=== PATIENT | female | born 1960 | race American Indian/Alaskan Native ===

== ENCOUNTER 2020-03-14 16:49 | Inpatient (IN) | payer MEDICAID ==
[~2020-03-14] VITALS: Ht 160 cm; Wt 56.8 kg
[~2020-03-14 16:49] MED LIST: ASPI-1265 PO; ATEN25TA PO; ATOR20TA PO; CHOL100046 PO; DOCU100C40 PO; HYDR2TAB7 PO; LORA-269 PO; OMEP20CA15 PO
[2020-03-14 17:15] LABS: BASOPHILS # (AUTO) 0.1 X10'3 (0-0.2); BASOPHILS % (AUTO) 0.8 % (0-1); EOSINOPHILS # (AUTO) 0.3 X10'3 (0-0.9); EOSINOPHILS % (AUTO) 4.4 % (0-6); HEMATOCRIT 40.7 % (35.0-45.0); HEMOGLOBIN 13.6 g/dl (12.0-16.0); LYMPHOCYTES # (AUTO) 1.3 X10'3 (1.1-4.8); LYMPHOCYTES % (AUTO) 17.9 % (21-51); MEAN CORPUSCULAR HEMOGLOBIN 29.5 PG (27.0-31.0); MEAN CORPUSCULAR HGB CONC 33.5 g/dL (33.0-36.5); MEAN PLATELET VOLUME 8.4 FL (7.4-10.4); MONOCYTES # (AUTO) 0.6 X10'3 (0-0.9); MONOCYTES % (AUTO) 7.7 % (2-12); NEUTROPHILS % (AUTO) 69.2 % (42-75); PLATELET COUNT 152 X10'3 (140-440); RED BLOOD COUNT 4.63 X10'6 (4.20-5.60); RED CELL DISTRIBUTION WIDTH 13.9 % (11.5-14.5); WHITE BLOOD COUNT 7.2 X10'3 (4.5-11.0)
[2020-03-14 17:27] LABS: ALANINE AMINOTRANSFERASE 30 U/L (12-78); ALBUMIN 3.8 G/DL (3.4-5.0); ALBUMIN/GLOBULIN RATIO 0.9 (1.1-1.5); ALKALINE PHOSPHATASE 70 IU/L (46-116); ANION GAP 12 (8-16); ASPARTATE AMINO TRANSFERASE 29 U/L (10-37); BILIRUBIN,TOTAL 0.5 MG/DL (0.1-1.0); BLOOD UREA NITROGEN 21 MG/DL (7-18); BUN/CREATININE RATIO 27.6 (6.6-38.0); CALCIUM 8.8 MG/DL (8.5-10.1); CHLORIDE 104 MMOL/L (99-107); CREATININE 0.76 MG/DL (0.40-0.90); GLUCOSE 95 MG/DL (70-104); POTASSIUM 3.7 MMOL/L (3.5-5.1); SODIUM 139 MMOL/L (135-145); TOTAL CARBON DIOXIDE 23.5 MMOL/L (24-32); TOTAL PROTEIN 8.1 G/DL (6.4-8.2); eGFR 78 ML/MIN
[2020-03-14] MEDS ORDERED: ketorolac trometh. 30mg/ml inj. IV ONE (18:15)
[2020-03-14] MEDS ORDERED: mag hydrox/Alum hydrox/simeth 30ml oral suspension PO PRN (19:55)
[2020-03-14] MEDS ORDERED: ondansetron/PF 4mg/2ml inj IV PRN (19:55)
[2020-03-14] MEDS ORDERED: HYDROmorphone inj. 0.5 MG/0.5 ML DISP.SYRIN IV PRN (19:55)
[2020-03-14] MEDS ORDERED: magnesium hydroxide 30ml (MOM) UD suspension PO PRN (19:55)
[2020-03-14] MEDS ORDERED: acetaminophen 325mg tablet PO PRN (19:55)
[2020-03-14 20:30] VITALS: BP 149/80
--- NOTE | 2020-03-14 20:30 | NUR ---
PATIENT UP TO FLOOR VIA GURNEY. AMBULATED WITHOUT DIFFICULTY TO BEDSIDE. REPORTS SLIGHT SHORTNESS OF BREATH. PLACED ON MEDICAL FEE CLERK 55. 20G IV IN RIGHT AND LEFT FA AND SALINE LOCKED AT THIS TIME. BELONGINGS PLACED AT THE BEDSIDE. VS STABLE AND WNL. WILL CONTINUE TO MONITOR CLOSELY.
--- NOTE | 2020-03-14 20:31 | NUR ---
Patient in room ED 3. I have received report from ROBERTO DAS, IN ER and had the opportunity to ask questions. AWAITING ARRIVAL TO 3013A.
[2020-03-14 22:58] VITALS: BP 156/73
[2020-03-14] MEDS ORDERED: nitroGLYCERIN 0.4mg SUBLingual tab SL PRN (23:10)
--- NOTE | 2020-03-14 23:52 | NUR ---
PAGER ID: [phone] MESSAGE: ROBERTO Segura Ext. [phone] for pt in 3013A. Admit Dx AC DECOMP HF. 6HR Critical troponin 0.14. Just wanted to let you know. Thank you.
[2020-03-15] VITALS (10 sets, daily range): BP systolic 112–138; BP diastolic 60–94
[2020-03-15 05:14] LABS: BASOPHILS % (AUTO) 0.7 % (0-1); EOSINOPHILS # (AUTO) 0.4 X10'3 (0-0.9); EOSINOPHILS % (AUTO) 5.6 % (0-6); HEMOGLOBIN 13.5 g/dl (12.0-16.0); LYMPHOCYTES # (AUTO) 1.6 X10'3 (1.1-4.8); LYMPHOCYTES % (AUTO) 24.8 % (21-51); MEAN CORPUSCULAR HEMOGLOBIN 29.5 PG (27.0-31.0); MEAN CORPUSCULAR HGB CONC 33.6 g/dL (33.0-36.5); MEAN CORPUSCULAR VOLUME 87.8 FL (78-98); MEAN PLATELET VOLUME 8.6 FL (7.4-10.4); MONOCYTES # (AUTO) 0.6 X10'3 (0-0.9); MONOCYTES % (AUTO) 9.5 % (2-12); NEUTROPHILS # (AUTO) 3.9 X10'3 (1.8-7.7); NEUTROPHILS % (AUTO) 59.4 % (42-75); PLATELET COUNT 157 X10'3 (140-440); RED BLOOD COUNT 4.56 X10'6 (4.20-5.60); RED CELL DISTRIBUTION WIDTH 13.9 % (11.5-14.5); WHITE BLOOD COUNT 6.6 X10'3 (4.5-11.0)
[2020-03-15 05:25] LABS: ALBUMIN 3.3 G/DL (3.4-5.0); ANION GAP 10 (8-16); BLOOD UREA NITROGEN 30 MG/DL (7-18); BUN/CREATININE RATIO 33.3 (6.6-38.0); CALCIUM 9.3 MG/DL (8.5-10.1); CHLORIDE 107 MMOL/L (99-107); GLUCOSE 91 MG/DL (70-104); POTASSIUM 3.8 MMOL/L (3.5-5.1); SODIUM 142 MMOL/L (135-145); TOTAL CARBON DIOXIDE 25.3 MMOL/L (24-32); eGFR 64 ML/MIN
--- NOTE | 2020-03-15 06:20 | NUR ---
Problems reprioritized. Patient report given, questions answered & plan of care reviewed with ROBERTO BOSE.
--- NOTE | 2020-03-15 06:27 | NUR ---
Patient in room PCU 3013. I have received report from ROBERTO Segura and had the opportunity to ask questions and assume patient care.
--- NOTE | 2020-03-15 06:40 | NUR ---
Patient in room U 3013. I have received report from Colton MEJIA and had the opportunity to ask questions and assume patient care. Pt sleeping in room, no signs of distress.
[2020-03-15] MEDS ORDERED: enoxaparin 40mg/0.4ml syringe SUBCUT SCH (08:00)
[2020-03-15] MEDS ORDERED: furosemide 20 MG/2 ML vial IV SCH (08:00)
[2020-03-15] MEDS ORDERED: aspirin 81mg tab.chew PO SCH (08:00)
[2020-03-15] MEDS ORDERED: atenolol 25mg tablet PO SCH ×2 (08:00→13:36)
[2020-03-15] MEDS ORDERED: vitamin D (cholecalciferol) 1,000 unit tablet PO SCH (08:00)
[2020-03-15] MEDS ORDERED: NITR0.4T51 SL (10:29)
[2020-03-15] MEDS ORDERED: aminophylline 250mg/10ml inj. IV PRN (13:30)
[2020-03-15] MEDS ORDERED: regadenoson 0.4mg/5ml syringe IV ONE (13:30)
[2020-03-15] MEDS ORDERED: nitroGLYCERIN 0.4mg SUBLingual tab SL PRN (13:30)
[2020-03-15] MEDS ORDERED: metoprolol tartrate 1mg/ml inj IV PRN (13:30)
[2020-03-15] MEDS ORDERED: losartan 50mg tablet PO SCH (13:35)
--- NOTE | 2020-03-15 13:54 | NUR ---
Spoke to Nuc Med, they were wondering if still wanted to go forward with Savanna due to Trops being elevated. Spoke with Dr Burch, he said go ahead with Savanna, he's aware of Trops. Also to JU Lugo that was placed by [facility], will monitor for urine output, and encourage to void q30 mins.
--- NOTE | 2020-03-15 14:07 | NUR ---
Discontinued Lugo catheter that was placed by [facility], per Dr. Burch's verbal orders. Will continue to monitor for urine output and educate patient regarding void frequency.
--- NOTE | 2020-03-15 17:10 | NUR ---
Paged Dr Burch PAGER ID: [phone] MESSAGE: Paula Mercedes [id number] KOURTNEY Corrales has resulted. Are you planning to discharge? Thanks Ariana Julian [phone]
--- NOTE | 2020-03-15 17:15 | NUR ---
Spoke with Dr Burch, informed me to let the patient eat dinner, then keep her NPO after midnight. He is going to talk with Dr Malik for a consult due to results of Savanna scan.
--- NOTE | 2020-03-15 18:23 | NUR ---
Orientee documentation: I have reviewed and agree with all interventions, assessments performed and documented by ROBERTO Harding.
--- NOTE | 2020-03-15 18:24 | NUR ---
Orientee Medication Administration: For this medication-pass time frame, all medication were reviewed, dispensed, administered and documented per hospital policy by ROBERTO Harding.
--- NOTE | 2020-03-15 18:25 | NUR ---
Problems reprioritized. Patient report given, questions answered & plan of care reviewed with Michelle.
--- NOTE | 2020-03-15 18:26 | NUR ---
Problems reprioritized. Patient report given, questions answered & plan of care reviewed with ROBERTO Martinez. All patient needs met at this time.
--- NOTE | 2020-03-15 18:28 | NUR ---
Patient in room PCU 3013. I have received report from Meaghan MEJIA and Ariana MEJIA and had the opportunity to ask questions and assume patient care.
--- NOTE | 2020-03-15 19:23 | NUR ---
PAGER ID: [phone] MESSAGE: Patient Paula Rodriguez Rm [id number] Patient is leaving AMA despite education. Michelle MEJIA ext. [phone]
--- NOTE | 2020-03-15 19:38 | NUR ---
Patient left AMA at this time. She was educated regarding her risk of leaving against medication advice but she stated that she is not going to wait around to see a physician and if she isn't getting discharged right now then she is leaving because she has friends waiting down in the parking lot ready to pick her up. She was educated by both primary RN and zinc furnace charger. AMA paper was signed, PIVs taken out, and patient taken off of tele. Dr. Avendano paged to inform him of patient leaving.
--- NOTE | 2020-03-15 19:40 | NUR ---
PAGER ID: [phone] MESSAGE: Patient Paula Rodriguez Rm [id number] Patient is leaving AMA despite education. Michelle MEJIA ext. [phone]
[2020-03-15] MEDS ORDERED: atorvastatin 20mg tablet PO SCH (21:00)
== END 2020-03-15 19:53 | disposition left against medical advice (07) | DRG 194 ==
LOC: ER 16:49 → ED HOLD 19:51 → PCU 3S 20:35
PROVIDERS: ADMIT Internal Medicine; ATTEND Family Medicine
PROC: 4A02XM4 Measurement of Cardiac Total Activity, External Approach (ICD-10-PCS; principal; 2020-03-15)
PROC: 3E033HZ Introduction of Radioactive Substance into Peripheral Vein, Percutaneous Approach (ICD-10-PCS; 2020-03-15)
DX: I11.0 Hypertensive heart disease with heart failure (principal); I65.29 Occlusion and stenosis of unspecified carotid artery; Z86.74 Personal history of sudden cardiac arrest; Z95.1 Presence of aortocoronary bypass graft; I25.110 Atherosclerotic heart disease of native coronary artery with unstable angina pectoris; I50.9 Heart failure, unspecified; E78.5 Hyperlipidemia, unspecified; E04.1 Nontoxic single thyroid nodule; Z53.29 Procedure and treatment not carried out because of patient's decision for other reasons; I25.2 Old myocardial infarction; Z79.82 Long term (current) use of aspirin; Z87.891 Personal history of nicotine dependence; Z95.5 Presence of coronary angioplasty implant and graft; Z88.8 Allergy status to other drugs, medicaments and biological substances
CPT/HCPCS: 36415; 71045; 78452; 80048; 80053; 83880; 84484; 85025; 87081; 93005; 93017; 93306; 96374; 99285; A9500; G0378; J1650; J1885; J1940; J2785

== ENCOUNTER 2020-09-30 05:56 | Inpatient (IN) | payer MEDICAID ==
[~2020-09-30] VITALS: Ht 157.5 cm; Wt 59.0 kg
[~2020-09-30 05:56] MED LIST changes: -DOCU100C40 PO; -HYDR2TAB7 PO; -LORA-269 PO; +NITR0.4T51 SL; -OMEP20CA15 PO
[2020-09-30] MEDS ORDERED: heparin 10,000 units/1 ML INJ IV PRN ×2 (06:10→08:50)
[2020-09-30] MEDS ORDERED: heparin 10,000 units/1 ML INJ IV ONE ×2 (06:10→06:20)
[2020-09-30 06:38] LABS: BASOPHILS # (AUTO) 0.1 X10'3 (0-0.2); BASOPHILS % (AUTO) 1.2 % (0-1); EOSINOPHILS # (AUTO) 0.1 X10'3 (0-0.9); EOSINOPHILS % (AUTO) 1.2 % (0-6); HEMATOCRIT 36.1 % (35.0-45.0); HEMOGLOBIN 11.8 g/dl (12.0-16.0); LYMPHOCYTES # (AUTO) 1.2 X10'3 (1.1-4.8); LYMPHOCYTES % (AUTO) 15.8 % (21-51); MEAN CORPUSCULAR HEMOGLOBIN 29.3 PG (27.0-31.0); MEAN CORPUSCULAR HGB CONC 32.6 g/dL (33.0-36.5); MEAN CORPUSCULAR VOLUME 89.8 FL (78-98); MEAN PLATELET VOLUME 8.6 FL (7.4-10.4); MONOCYTES # (AUTO) 0.5 X10'3 (0-0.9); MONOCYTES % (AUTO) 6.8 % (2-12); NEUTROPHILS # (AUTO) 5.7 X10'3 (1.8-7.7); PLATELET COUNT 179 X10'3 (140-440); RED BLOOD COUNT 4.02 X10'6 (4.20-5.60); RED CELL DISTRIBUTION WIDTH 14.5 % (11.5-14.5); WHITE BLOOD COUNT 7.7 X10'3 (4.5-11.0)
[2020-09-30] MEDS: heparin 25,000 UNIT/250ml bag 250 ML IV SCH ×2 (06:45→17:31)
[2020-09-30 06:49] LABS: PARTIAL THROMBOPLASTIN TIME 27 SECONDS (22-32)
[2020-09-30 06:53] LABS: ALANINE AMINOTRANSFERASE 27 U/L (12-78); ALBUMIN 3.4 G/DL (3.4-5.0); ALBUMIN/GLOBULIN RATIO 0.8 (1.1-1.5); ALKALINE PHOSPHATASE 59 IU/L (46-116); ANION GAP 10 (8-16); ASPARTATE AMINO TRANSFERASE 28 U/L (10-37); BILIRUBIN,TOTAL 0.4 MG/DL (0.1-1.0); BLOOD UREA NITROGEN 17 MG/DL (7-18); BUN/CREATININE RATIO 12.3 (6.6-38.0); CALCIUM 8.6 MG/DL (8.5-10.1); CHLORIDE 107 MMOL/L (99-107); CREATININE 1.38 MG/DL (0.40-0.90); GLUCOSE 116 MG/DL (70-104); POTASSIUM 3.9 MMOL/L (3.5-5.1); SODIUM 141 MMOL/L (135-145); TOTAL CARBON DIOXIDE 24.2 MMOL/L (24-32); TOTAL PROTEIN 7.7 G/DL (6.4-8.2); eGFR 39 ML/MIN
--- NOTE | 2020-09-30 07:01 | NUR ---
pt sleeping in no distress. able to arouse.
[2020-09-30 07:02] LABS: MAGNESIUM 1.9 MG/DL (1.5-2.4)
[2020-09-30] MEDS ORDERED: CHOL500050 PO (08:11)
[2020-09-30] MEDS ORDERED: ASPI-1264 PO (08:11)
[2020-09-30] MEDS ORDERED: OMEP-50 PO (08:11)
[2020-09-30] MEDS ORDERED: LISI-600 PO (08:11)
[2020-09-30] MEDS ORDERED: CARV3.1289 PO (08:11)
[2020-09-30] MEDS ORDERED: potassium Cl 20 mEq SR tablet PO PRN ×2 (08:50)
[2020-09-30] MEDS ORDERED: bisacodyl 10mg suppository rectal RC PRN (08:50)
[2020-09-30] MEDS ORDERED: morphine 2 MG/ML inj. syringe IV PRN ×2 (08:50)
[2020-09-30] MEDS ORDERED: mag hydrox/Alum hydrox/simeth 30ml oral suspension PO PRN (08:50)
[2020-09-30] MEDS ORDERED: ondansetron/PF 4mg/2ml inj IV PRN (08:50)
[2020-09-30] MEDS ORDERED: magnesium 4gm in 100ml NS 100 ML IV PRN (08:50)
[2020-09-30] MEDS ORDERED: magnesium Cl slow-release 64mg tablet PO PRN (08:50)
[2020-09-30] MEDS ORDERED: magnesium 2GM in 50ml NS 50 ML IV PRN (08:50)
[2020-09-30] MEDS ORDERED: magnesium hydroxide 30ml (MOM) UD suspension PO PRN (08:50)
[2020-09-30] MEDS ORDERED: potassium CL 10mEq/100ml bag 100 ML IV PRN ×2 (08:50)
[2020-09-30] MEDS ORDERED: nitroGLYCERIN 0.4mg SUBLingual tab SL PRN (08:50)
[2020-09-30] MEDS ORDERED: heparin 25,000 UNIT/250ml bag 250 ML IV SCH ×2 (08:50→17:35)
[2020-09-30] MEDS ORDERED: acetaminophen 325mg tablet PO PRN (08:50)
[2020-09-30] MEDS: lisinopril 10 MG tablet PO SCH (09:05)
[2020-09-30 09:25] LABS: BASOPHILS % (AUTO) 0.6 % (0-1); EOSINOPHILS # (AUTO) 0.1 X10'3 (0-0.9); EOSINOPHILS % (AUTO) 1.3 % (0-6); HEMOGLOBIN 11.1 g/dl (12.0-16.0); LYMPHOCYTES # (AUTO) 1.4 X10'3 (1.1-4.8); LYMPHOCYTES % (AUTO) 19.3 % (21-51); MEAN CORPUSCULAR HEMOGLOBIN 29.3 PG (27.0-31.0); MEAN CORPUSCULAR HGB CONC 32.8 g/dL (33.0-36.5); MEAN CORPUSCULAR VOLUME 89.4 FL (78-98); MEAN PLATELET VOLUME 8.5 FL (7.4-10.4); MONOCYTES # (AUTO) 0.6 X10'3 (0-0.9); MONOCYTES % (AUTO) 8.8 % (2-12); PLATELET COUNT 168 X10'3 (140-440); RED CELL DISTRIBUTION WIDTH 14.1 % (11.5-14.5); WHITE BLOOD COUNT 7.1 X10'3 (4.5-11.0)
--- NOTE | 2020-09-30 09:55 | NUR ---
pt awake and given a cup of water. pt states she feels a little anxious but rearranged her in the bed to help.
[2020-09-30 12:15] VITALS: BP 113/83
[2020-09-30] MEDS: cetirizine 10mg tablet PO SCH (13:13)
[2020-09-30 15:00] VITALS: BP 98/60
--- NOTE | 2020-09-30 15:04 | NUR ---
PAGER ID: [phone] MESSAGE: RM 311 Paula Rodriguez is having an anxiety attack. Can we get some PRN Ativan on board. She says she takes it at home. ROBERTO Holder Ext [phone]
[2020-09-30] MEDS ORDERED: LORazepam 1 MG tablet PO PRN ×2 (15:10→18:15)
[2020-09-30 18:00] VITALS: BP 104/72
--- NOTE | 2020-09-30 18:10 | NUR ---
Problems reprioritized. Patient report given, questions answered & plan of care reviewed with ROBERTO Mckay.
[2020-09-30] MEDS ORDERED: carVEDilol 3.125mg tablet PO SCH (20:00)
[2020-09-30] MEDS ORDERED: atenolol 25mg tablet PO SCH (20:00)
[2020-09-30] MEDS ORDERED: furosemide 40mg/4ml inj IV SCH (20:00)
[2020-09-30] MEDS: K and/or MAG REPLACEMENT MC SCH (20:00)
[2020-09-30] MEDS: furosemide 20 MG/2 ML vial IV SCH (20:06)
[2020-09-30] MEDS ORDERED: atorvastatin 20mg tablet PO SCH (21:00)
[2020-09-30 22:00] VITALS: BP 104/74
[2020-10-01 02:00] VITALS: BP 94/57
[2020-10-01 06:00] VITALS: BP 106/72
--- NOTE | 2020-10-01 06:05 | NUR ---
Problems reprioritized. Patient report given, questions answered & plan of care reviewed with Pam MEJIA
--- NOTE | 2020-10-01 06:15 | NUR ---
Patient in room MED 311. I have received report from sharri mckeon and had the opportunity to ask questions and assume patient care.
[2020-10-01 06:24] LABS: BASOPHILS # (AUTO) 0.1 X10'3 (0-0.2); BASOPHILS % (AUTO) 1.1 % (0-1); EOSINOPHILS # (AUTO) 0.3 X10'3 (0-0.9); EOSINOPHILS % (AUTO) 4.2 % (0-6); LYMPHOCYTES # (AUTO) 2.6 X10'3 (1.1-4.8); LYMPHOCYTES % (AUTO) 33.5 % (21-51); MEAN CORPUSCULAR HEMOGLOBIN 29.3 PG (27.0-31.0); MEAN CORPUSCULAR HGB CONC 33.3 g/dL (33.0-36.5); MEAN CORPUSCULAR VOLUME 87.9 FL (78-98); MEAN PLATELET VOLUME 9.1 FL (7.4-10.4); MONOCYTES # (AUTO) 0.7 X10'3 (0-0.9); MONOCYTES % (AUTO) 9.3 % (2-12); NEUTROPHILS % (AUTO) 51.9 % (42-75); PLATELET COUNT 173 X10'3 (140-440); RED BLOOD COUNT 3.75 X10'6 (4.20-5.60); RED CELL DISTRIBUTION WIDTH 14.5 % (11.5-14.5); WHITE BLOOD COUNT 7.7 X10'3 (4.5-11.0)
--- NOTE | 2020-10-01 06:34 | NUR ---
Problems reprioritized. Patient report given, questions answered & plan of care reviewed with Pam MEJIA.
[2020-10-01 06:53] LABS: ANION GAP 13 (8-16); BLOOD UREA NITROGEN 32 MG/DL (7-18); BUN/CREATININE RATIO 22.2 (6.6-38.0); CHLORIDE 107 MMOL/L (99-107); CHOL/HDL RATIO 2.5 (0.00-4.99); CHOLESTEROL 147 MG/DL (0-200); CREATININE 1.44 MG/DL (0.40-0.90); GLUCOSE 110 MG/DL (70-104); HDL CHOLESTEROL 59 MG/DL (35-60); LDL CHOLESTEROL 78 MG/DL (50-100); MAGNESIUM 1.9 MG/DL (1.5-2.4); POTASSIUM 3.6 MMOL/L (3.5-5.1); SODIUM 139 MMOL/L (135-145); TOTAL CARBON DIOXIDE 19.4 MMOL/L (24-32); TRIGLYCERIDES 63 MG/DL (20-135); eGFR 37 ML/MIN
[2020-10-01] MEDS ORDERED: pantoprazole 40mg Tablet.DR PO SCH (07:30)
[2020-10-01] MEDS: K and/or MAG REPLACEMENT MC SCH (08:00)
[2020-10-01] MEDS ORDERED: metoprolol succinate 25mg (24-HOUR) SR. Tablet PO SCH (08:00)
[2020-10-01] MEDS: cetirizine 10mg tablet PO SCH (08:00)
[2020-10-01] MEDS: lisinopril 10 MG tablet PO SCH (08:02)
[2020-10-01] MEDS: furosemide 20 MG/2 ML vial IV SCH (08:02)
[2020-10-01] MEDS ORDERED: aspirin 81mg tablet.DR PO SCH (08:30)
[2020-10-01 10:00] VITALS: BP 101/59
[2020-10-01] MEDS ORDERED: ATI1T PO (12:30)
[2020-10-01] MEDS ORDERED: ASPI-1071 PO (12:30)
[2020-10-01] MEDS ORDERED: CETI10TA14 PO (12:30)
[2020-10-01] MEDS ORDERED: METO-395 PO (12:30)
[2020-10-01] MEDS ORDERED: MELA3TAB39 PO (12:30)
--- NOTE | 2020-10-01 12:30 | NUR ---
Spoke with pts' daughter as Dr. Mason was discussing discharge orders with patient,daughter stated she was leaving from [place] and would be here in 1 1/2 hours.
[2020-10-01] MEDS ORDERED: LORA-269 PO (12:31)
[2020-10-01 14:00] VITALS: BP 88/42
--- NOTE | 2020-10-01 14:00 | NUR ---
pts' daughter called ,stated she was just leaving from [place] , would be here approx 3:30 pm
--- NOTE | 2020-10-01 15:36 | NUR ---
pts daughter called stated she is approx 45 mins away
--- NOTE | 2020-10-01 17:00 | NUR ---
reviewed all discharge instructions,including need for f/u appt with PCP and Dr. Malik.Pt aware of prescriptions sent to [facility] pharmacy,open friday.SL dc;d from [facility],both sites clear. Pt dc'd via w/c with all belongings
== END 2020-10-01 17:00 | disposition home or self-care (01) | DRG 190 ==
LOC: ER 05:56 → ED HOLD 08:46 → EDBEDREQ 09:40 → MED 3N 11:33
PROVIDERS: ADMIT Family Medicine; ATTEND Family Medicine
DX: I21.4 Non-ST elevation (NSTEMI) myocardial infarction (principal); I11.0 Hypertensive heart disease with heart failure; E78.5 Hyperlipidemia, unspecified; F41.1 Generalized anxiety disorder; I25.10 Atherosclerotic heart disease of native coronary artery without angina pectoris; I34.0 Nonrheumatic mitral (valve) insufficiency; I50.33 Acute on chronic diastolic (congestive) heart failure; R22.1 Localized swelling, mass and lump, neck; J30.9 Allergic rhinitis, unspecified; F17.210 Nicotine dependence, cigarettes, uncomplicated; Z95.1 Presence of aortocoronary bypass graft; Z95.3 Presence of xenogenic heart valve; I25.2 Old myocardial infarction; Z95.5 Presence of coronary angioplasty implant and graft; Z88.8 Allergy status to other drugs, medicaments and biological substances; Z72.89 Other problems related to lifestyle
CPT/HCPCS: 36415; 71045; 80048; 80053; 80061; 83735; 83880; 84484; 85025; 85610; 85730; 87081; 93005; 93306; 96374; 99285; G0378; J1644; J1940

== ENCOUNTER 2021-04-02 19:35 | Inpatient (IN) | payer MEDICAID ==
[~2021-04-02] VITALS: Ht 160 cm; Wt 78.6 kg
[~2021-04-02 19:35] MED LIST changes: +ASPI-1071 PO; -ASPI-1265 PO; -ATEN25TA PO; +CETI10TA14 PO; -CHOL100046 PO; +CHOL500050 PO; +LISI20TA28 PO; +LORA-269 PO; +MELA3TAB39 PO; +METO-395 PO; -NITR0.4T51 SL; +OMEP-50 PO
[2021-04-02] MEDS ORDERED: fentaNYL/PF 50MCG/1 ML 2ML syringe IV ONE (20:25)
[2021-04-02 20:44] LABS: BASOPHILS % (AUTO) 0.3 % (0-1); EOSINOPHILS % (AUTO) 0.3 % (0-6); HEMATOCRIT 38.6 % (35.0-45.0); LYMPHOCYTES # (AUTO) 1.1 X10'3 (1.1-4.8); LYMPHOCYTES % (AUTO) 9.4 % (21-51); MEAN CORPUSCULAR HEMOGLOBIN 27.5 PG (27.0-31.0); MEAN CORPUSCULAR HGB CONC 31.1 g/dL (33.0-36.5); MEAN CORPUSCULAR VOLUME 88.3 FL (78-98); MEAN PLATELET VOLUME 9.9 FL (7.4-10.4); MONOCYTES # (AUTO) 1.3 X10'3 (0-0.9); MONOCYTES % (AUTO) 11.4 % (2-12); NEUTROPHILS # (AUTO) 9.2 X10'3 (1.8-7.7); NEUTROPHILS % (AUTO) 78.6 % (42-75); PLATELET COUNT 78 X10'3 (140-440); RED BLOOD COUNT 4.37 X10'6 (4.20-5.60); WHITE BLOOD COUNT 11.8 X10'3 (4.5-11.0)
[2021-04-02 20:55] LABS: ALBUMIN 3.6 G/DL (3.4-5.0); ANION GAP 15 (8-16); BILIRUBIN,TOTAL 3.4 MG/DL (0.1-1.0); BLOOD UREA NITROGEN 83 MG/DL (7-18); BUN/CREATININE RATIO 43.5 (6.6-38.0); CALCIUM 8.6 MG/DL (8.5-10.1); CHLORIDE 100 MMOL/L (99-107); CREATININE 1.91 MG/DL (0.40-0.90); GLUCOSE 106 MG/DL (70-104); POTASSIUM 4.1 MMOL/L (3.5-5.1); SODIUM 134 MMOL/L (135-145); TOTAL CARBON DIOXIDE 19.1 MMOL/L (24-32); TOTAL PROTEIN 8.3 G/DL (6.4-8.2); eGFR 27 ML/MIN
--- NOTE | 2021-04-02 20:55 | NUR ---
VASC AT BEDSIDE TO DO DEBI EXAM
[2021-04-02 20:56] LABS: ALANINE AMINOTRANSFERASE 406 U/L (12-78); ALBUMIN/GLOBULIN RATIO 0.8 (1.1-1.5); ALKALINE PHOSPHATASE 99 IU/L (46-116); ASPARTATE AMINO TRANSFERASE 354 U/L (10-37)
[2021-04-02 21:01] LABS: ANISOCYTOSIS 2+; BURR CELLS FEW; ELLIPTOCYTES FEW; PLATELET ESTIMATE DECREASED
[2021-04-02 21:02] LABS: TROPONIN I 0.34 NG/ML (0.0-0.05)
--- NOTE | 2021-04-02 21:17 | NUR ---
DR CARREON MADE AWARE OF PT'S LAB RESULTS
[2021-04-02 21:35] LABS: CLARITY,URINE SLIGHTLY CLOUDY (Clear); COLOR,URINE YELLOW (Yellow); GLUCOSE, URINE NEGATIVE (Neg); KETONES,URINE NEGATIVE (Neg); LEUKOCYTE ESTERASE ,URINE NEGATIVE (Neg); NITRITES, URINE NEGATIVE (Neg); OCCULT BLOOD,URINE NEGATIVE (Neg); PH,URINE 5.5 (4.8-8.0); PROTEIN,URINE 30 mg/dl (Neg)
[2021-04-02 21:42] LABS: UA COLLECTION TYPE STRAIGHT CATH
[2021-04-02 21:43] LABS: AMORPHOUS URATES 1+; BACTERIA,URINE FEW /HPF (Neg); RBC,URINE 0-2 /HPF (0-2); WBC,URINE 0-4 /HPF (0-4)
[2021-04-02] MEDS ORDERED: normal saline 1000ML IV soln IV ONE (21:45)
[2021-04-02] MEDS ORDERED: CefTRIAXone 2gm/D5W 50ml BAG 50 ML IV ONE (21:45)
[2021-04-02 21:50] LABS: SQUAMOUS EPITHELIAL CELL,UR FEW /LPF (FEW)
[2021-04-02] MEDS ORDERED: furosemide 40mg/4ml inj IV ONE (22:15)
--- NOTE | 2021-04-02 23:17 | NUR ---
LAB AT BEDSIDE TO DRAW REPEAT LABS, PT TOLERABLE FOR PAIN TO BLLE
[2021-04-02] MEDS ORDERED: ipratropium/albuterol 3ml nebule NEB PRN (23:35)
[2021-04-02] MEDS ORDERED: magnesium 4gm in 100ml NS 100 ML IV PRN (23:35)
[2021-04-02] MEDS ORDERED: potassium Cl 20 mEq SR tablet PO PRN ×2 (23:35)
[2021-04-02] MEDS ORDERED: potassium Cl 40MEQ/1/2NS 520ml 520 ML IV PRN ×2 (23:35)
[2021-04-02] MEDS ORDERED: magnesium 2GM in 50ml NS 50 ML IV PRN (23:35)
[2021-04-02] MEDS ORDERED: albuterol 2.5 MG/3 ML nebule NEB PRN (23:35)
[2021-04-03 00:46] VITALS: BP 122/76
--- NOTE | 2021-04-03 00:49 | NUR ---
PAGER ID: [phone] MESSAGE: Jennifer, Paula GuerraF admitted for elevated trops and LFTs, complains of emmy LE pain. She says that she has no allergic to hydrocodone, morphine, tramadol, Tylenol. she gets nauseated when getting morphine. Request pain med. Luis [phone] Addendum: 04/03/21 at 0058 by Filomena Hayward RN Dr. Sood called back and ordered Oxycodone 10mg PO Q6H PRN for pain. No other orders were given at this time.
[2021-04-03] MEDS ORDERED: oxyCODONE SR 10mg (sust. release) tab PO PRN (00:50)
[2021-04-03] MEDS ORDERED: LORazepam 2 mg/ml vial IV PRN (01:15)
[2021-04-03] MEDS ORDERED: LORazepam 1 MG tablet PO PRN (01:50)
[2021-04-03 02:00] VITALS: BP 122/81
[2021-04-03 02:59] LABS: ALANINE AMINOTRANSFERASE 418 U/L (12-78); ALBUMIN 3.5 G/DL (3.4-5.0); ALBUMIN/GLOBULIN RATIO 0.7 (1.1-1.5); ALKALINE PHOSPHATASE 98 IU/L (46-116); ANION GAP 19 (8-16); ASPARTATE AMINO TRANSFERASE 376 U/L (10-37); BILIRUBIN,TOTAL 3.2 MG/DL (0.1-1.0); BLOOD UREA NITROGEN 86 MG/DL (7-18); BUN/CREATININE RATIO 39.3 (6.6-38.0); CALCIUM 8.1 MG/DL (8.5-10.1); CHLORIDE 100 MMOL/L (99-107); CREATININE 2.19 MG/DL (0.40-0.90); GLUCOSE 95 MG/DL (70-104); POTASSIUM 4.3 MMOL/L (3.5-5.1); SODIUM 136 MMOL/L (135-145); TOTAL CARBON DIOXIDE 16.8 MMOL/L (24-32); TOTAL PROTEIN 8.3 G/DL (6.4-8.2); eGFR 23 ML/MIN
[2021-04-03 03:02] LABS: MAGNESIUM 2.7 MG/DL (1.5-2.4)
--- NOTE | 2021-04-03 03:24 | NUR ---
[facility] Paula 60F, admitted for Elev LFTs and Trops. The 12 hr troponin being 0.32, down from 6hr troponin of 0.34. Patient is asymptomatic, NSR. Filomena-ROBERTO [id number]
--- NOTE | 2021-04-03 06:17 | NUR ---
Problems reprioritized. Patient report given, questions answered & plan of care reviewed with Halie-RN.
[2021-04-03 06:47] VITALS: BP 122/78
[2021-04-03] MEDS ORDERED: pantoprazole 40mg Tablet.DR PO SCH (07:30)
[2021-04-03] MEDS: K and/or MAG REPLACEMENT MC SCH ×2 (08:00→20:00)
[2021-04-03 10:45] LABS: EOSINOPHILS % (AUTO) 0.3 % (0-6); HEMOGLOBIN 12.1 g/dl (12.0-16.0); RED CELL DISTRIBUTION WIDTH 20.2 % (11.5-14.5)
[2021-04-03 10:46] LABS: BASOPHILS # (AUTO) 0.1 X10'3 (0-0.2); BASOPHILS % (AUTO) 0.4 % (0-1); HEMATOCRIT 39.1 % (35.0-45.0); LYMPHOCYTES # (AUTO) 1.2 X10'3 (1.1-4.8); LYMPHOCYTES % (AUTO) 8.3 % (21-51); MEAN CORPUSCULAR HEMOGLOBIN 27.6 PG (27.0-31.0); MEAN CORPUSCULAR HGB CONC 30.9 g/dL (33.0-36.5); MEAN CORPUSCULAR VOLUME 89.4 FL (78-98); MEAN PLATELET VOLUME 10.6 FL (7.4-10.4); MONOCYTES # (AUTO) 1.7 X10'3 (0-0.9); MONOCYTES % (AUTO) 11.8 % (2-12); NEUTROPHILS # (AUTO) 11.5 X10'3 (1.8-7.7); NEUTROPHILS % (AUTO) 79.2 % (42-75); PLATELET COUNT 110 X10'3 (140-440); RED BLOOD COUNT 4.37 X10'6 (4.20-5.60); WHITE BLOOD COUNT 14.5 X10'3 (4.5-11.0)
[2021-04-03] MEDS: docusate sod 100mg capsule PO SCH ×2 (11:14→20:41)
[2021-04-03] MEDS: cholecalciferol (vitamin D3) 1,000 unit (25mcg) tablet PO SCH (11:14)
[2021-04-03] MEDS: CefTRIAXone/D5W-Rocephin 1gm 50 ML IV SCH (11:14)
[2021-04-03] MEDS: lisinopril 10 MG tablet PO SCH (11:14)
[2021-04-03] MEDS: cetirizine 10mg tablet PO SCH (11:15)
[2021-04-03] MEDS: metoprolol succinate 25mg (24-HOUR) SR. Tablet PO SCH (11:15)
[2021-04-03] MEDS: multivitamins, therapeutics tablet PO SCH (11:15)
[2021-04-03] MEDS: thiamine 100mg tablet PO SCH (11:15)
[2021-04-03] MEDS: folic acid 1mg tablet PO SCH (11:15)
[2021-04-03 11:37] LABS: PLATELET ESTIMATE DECREASED
[2021-04-03 11:38] LABS: ANISOCYTOSIS 3+; BURR CELLS 1+; ELLIPTOCYTES 1+; POLYCHROMASIA FEW
[2021-04-03 12:00] VITALS: BP 107/71
[2021-04-03] MEDS: ondansetron/PF 4mg/2ml inj IV PRN (12:08)
[2021-04-03] MEDS: oxyCODONE IR 5mg (immed. release) tablet PO PRN (12:34)
[2021-04-03] MEDS ORDERED: furosemide 20 MG/2 ML vial IV ONE (12:45)
[2021-04-03] MEDS ORDERED: PERFLUTREN PROTEIN-A MICROSPHR (Optison) 0.22 MG/ML 3ML VIAL IV ONE (13:00)
[2021-04-03] MEDS ORDERED: FLUT1BLS10 INH (15:41)
[2021-04-03] MEDS ORDERED: PARO20TA6 PO (15:41)
[2021-04-03] MEDS ORDERED: APIX5TAB3 PO (15:41)
[2021-04-03] MEDS ORDERED: POTA8TAB58 PO (15:41)
[2021-04-03] MEDS ORDERED: CARV6.253 PO (15:41)
[2021-04-03] MEDS ORDERED: FURO40TA4 PO (15:41)
[2021-04-03] MEDS ORDERED: LORA-268 PO (15:41)
--- NOTE | 2021-04-03 16:30 | NUR ---
Changes made to patients home med list, Dr Ahn made aware. Dvt's reported to md as well.
[2021-04-03] MEDS: normal saline 1000ml 1,000 ML IV SCH (17:15)
--- NOTE | 2021-04-03 18:25 | NUR ---
Patient in room MED 310. I have received report from Halie-ROBERTO, and had the opportunity to ask questions and assume patient care.
[2021-04-03 19:00] VITALS: BP 133/84
[2021-04-03] MEDS ORDERED: enoxaparin 30mg/0.3ml syringe IV SCH (20:00)
[2021-04-03] MEDS ORDERED: enoxaparin 40mg/0.4ml syringe SQ SCH (20:00)
[2021-04-03] MEDS: furosemide 20 MG/2 ML vial IV SCH (20:41)
[2021-04-03] MEDS: lactobacillus rhamnosus 10,000 MMU CELLS/CAPSULE PO SCH (20:41)
[2021-04-03] MEDS: apixaban 5mg tablet PO SCH (20:42)
[2021-04-03] MEDS ORDERED: atorvastatin 20mg tablet PO SCH (21:00)
[2021-04-03 22:00] VITALS: BP 110/69
[2021-04-04 02:00] VITALS: BP 119/73
[2021-04-04] MEDS: ondansetron/PF 4mg/2ml inj IV PRN (03:28)
[2021-04-04] MEDS: oxyCODONE IR 5mg (immed. release) tablet PO PRN (03:28)
[2021-04-04 05:06] LABS: BASOPHILS # (AUTO) 0.1 X10'3 (0-0.2); EOSINOPHILS # (AUTO) 0.1 X10'3 (0-0.9); EOSINOPHILS % (AUTO) 0.8 % (0-6); HEMOGLOBIN 11.3 g/dl (12.0-16.0); MEAN PLATELET VOLUME 10.3 FL (7.4-10.4); PLATELET COUNT 75 X10'3 (140-440)
[2021-04-04 05:09] LABS: BASOPHILS % (AUTO) 0.6 % (0-1); HEMATOCRIT 36.7 % (35.0-45.0); LYMPHOCYTES # (AUTO) 1.3 X10'3 (1.1-4.8); LYMPHOCYTES % (AUTO) 10.1 % (21-51); MEAN CORPUSCULAR HEMOGLOBIN 27.5 PG (27.0-31.0); MEAN CORPUSCULAR HGB CONC 30.9 g/dL (33.0-36.5); MEAN CORPUSCULAR VOLUME 89.1 FL (78-98); MONOCYTES # (AUTO) 1.8 X10'3 (0-0.9); MONOCYTES % (AUTO) 13.6 % (2-12); NEUTROPHILS # (AUTO) 9.9 X10'3 (1.8-7.7); NEUTROPHILS % (AUTO) 74.9 % (42-75); RED BLOOD COUNT 4.12 X10'6 (4.20-5.60); WHITE BLOOD COUNT 13.3 X10'3 (4.5-11.0)
[2021-04-04 05:18] LABS: ALANINE AMINOTRANSFERASE 436 U/L (12-78); ALBUMIN 3.2 G/DL (3.4-5.0); ALBUMIN/GLOBULIN RATIO 0.7 (1.1-1.5); ALKALINE PHOSPHATASE 95 IU/L (46-116); ANION GAP 15 (8-16); ASPARTATE AMINO TRANSFERASE 352 U/L (10-37); BILIRUBIN,TOTAL 2.3 MG/DL (0.1-1.0); BLOOD UREA NITROGEN 101 MG/DL (7-18); BUN/CREATININE RATIO 32.3 (6.6-38.0); CHLORIDE 98 MMOL/L (99-107); CREATININE 3.13 MG/DL (0.40-0.90); GLUCOSE 100 MG/DL (70-104); LIPASE 385 U/L (73-393); MAGNESIUM 2.7 MG/DL (1.5-2.4); PHOSPHORUS 5.9 MG/DL (2.3-4.5); POTASSIUM 4.9 MMOL/L (3.5-5.1); SODIUM 129 MMOL/L (135-145); TOTAL CARBON DIOXIDE 15.6 MMOL/L (24-32); eGFR 15 ML/MIN
[2021-04-04] MEDS: normal saline 1000ml 1,000 ML IV SCH ×2 (05:23→08:57)
[2021-04-04 06:00] VITALS: BP 132/56
[2021-04-04 06:13] LABS: ANISOCYTOSIS 2+; PLATELET ESTIMATE DECREASED
[2021-04-04 06:14] LABS: ELLIPTOCYTES 1+
[2021-04-04 06:15] LABS: BURR CELLS 2+
[2021-04-04 06:16] LABS: POLYCHROMASIA 1+
[2021-04-04 06:17] LABS: LARGE PLATELETS FEW
--- NOTE | 2021-04-04 06:27 | NUR ---
Problems reprioritized. Patient report given, questions answered & plan of care reviewed with Karen-RN(T).
--- NOTE | 2021-04-04 06:31 | NUR ---
Patient in room MED 310. I have received report from Filomena MEJIA and had the opportunity to ask questions and assume patient care.
[2021-04-04] MEDS: K and/or MAG REPLACEMENT MC SCH ×2 (08:00→20:00)
[2021-04-04] MEDS: CefTRIAXone/D5W-Rocephin 1gm 50 ML IV SCH (08:55)
[2021-04-04] MEDS: apixaban 5mg tablet PO SCH ×3 (08:55→20:19)
[2021-04-04] MEDS: cetirizine 10mg tablet PO SCH (08:55)
[2021-04-04] MEDS: lactobacillus rhamnosus 10,000 MMU CELLS/CAPSULE PO SCH ×3 (08:56→20:19)
[2021-04-04] MEDS: PARoxetine 20mg tablet PO SCH (08:56)
[2021-04-04] MEDS: aspirin 81mg tablet.DR PO SCH (08:56)
[2021-04-04] MEDS: lisinopril 10 MG tablet PO SCH (08:56)
[2021-04-04] MEDS: docusate sod 100mg capsule PO SCH ×3 (08:56→20:19)
[2021-04-04] MEDS: multivitamins, therapeutics tablet PO SCH (08:56)
[2021-04-04] MEDS: folic acid 1mg tablet PO SCH (08:57)
[2021-04-04] MEDS: cholecalciferol (vitamin D3) 1,000 unit (25mcg) tablet PO SCH (08:57)
[2021-04-04] MEDS: thiamine 100mg tablet PO SCH (08:57)
[2021-04-04] MEDS: furosemide 20 MG/2 ML vial IV SCH ×3 (08:57→20:19)
[2021-04-04] MEDS: metoprolol succinate 25mg (24-HOUR) SR. Tablet PO SCH (08:57)
--- NOTE | 2021-04-04 09:15 | NUR ---
Pt given ativan 2mg for anxiety, restlessness and agitation. Ativan administered as prescribed. Will continue to monitor pt.
--- NOTE | 2021-04-04 10:00 | NUR ---
RE 310 [place], Paula Dr. Wheeler ordered a 24 hr urine collection but pt is incontinent of urine. Can we get an order for a catheter in order to get the 24 hour urine specimen? Thanks, Karen MEJIA paged sent to Dr. Mason
[2021-04-04] MEDS ORDERED: normal saline 1000ml 1,000 ML IV SCH (10:35)
[2021-04-04 11:00] VITALS: BP 107/74
[2021-04-04 11:12] LABS: HBSAG SCREEN Negative (Negative); HEP A AB, IGM Negative (Negative); HEPATITIS C ANTIBODY <0.1 s/co ratio (0.0-0.9)
--- NOTE | 2021-04-04 18:15 | NUR ---
Patient in room MED 310. I have received report from Janie(T), and had the opportunity to ask questions and assume patient care.
--- NOTE | 2021-04-04 18:25 | NUR ---
Patient was given ativan 2mg during the day. she has been s Addendum: 04/04/21 at 2150 by Filomena Hayward RN she has been drowsy. open her eyes when calling her name. She has been like this all day per dayshift nurse Janie(T). She had no launch and unable to eat her dinner. is aware of the issue per day shift Dennis. Will monitor for any changes.
[2021-04-04 20:00] VITALS: BP 74/50
[2021-04-04] MEDS: mineral oil/petrolatum, white cream 113gm jar TP SCH (20:19)
[2021-04-04 21:00] VITALS: BP 91/47
--- NOTE | 2021-04-04 21:50 | NUR ---
Patient's medication on hold because the patient is very drowsy and sleepy since she received ativan during the dayshift. Vitals are stable, NSR. Addendum: 04/04/21 at 2225 by Filomena Hayward RN [place], the charge nurse is aware of the situation too.
[2021-04-04 23:00] VITALS: BP 91/52
[2021-04-05] VITALS (22 sets, daily range): BP systolic 77–114; BP diastolic 44–76
[2021-04-05] MEDS ORDERED: LORazepam 2 mg/ml vial IV PRN (01:15)
[2021-04-05] MEDS ORDERED: LORazepam 1 MG tablet PO PRN (01:15)
--- NOTE | 2021-04-05 06:05 | NUR ---
Patient in room MED 310. I have received report from ROBERTO Butt and had the opportunity to ask questions and assume patient care.
--- NOTE | 2021-04-05 06:37 | NUR ---
Problems reprioritized. Patient report given, questions answered & plan of care reviewed with Hina. Patient is on 24 hour urine collection. It started on 04/04/21 at 1100 to 04/05/21 at 1100.
[2021-04-05 06:48] LABS: BASOPHILS % (AUTO) 0.3 % (0-1); EOSINOPHILS # (AUTO) 0.1 X10'3 (0-0.9); EOSINOPHILS % (AUTO) 0.7 % (0-6); HEMATOCRIT 35.5 % (35.0-45.0); HEMOGLOBIN 11.1 g/dl (12.0-16.0); LYMPHOCYTES # (AUTO) 1.1 X10'3 (1.1-4.8); MEAN CORPUSCULAR HEMOGLOBIN 27.1 PG (27.0-31.0); MEAN CORPUSCULAR HGB CONC 31.2 g/dL (33.0-36.5); MEAN CORPUSCULAR VOLUME 86.9 FL (78-98); MEAN PLATELET VOLUME 9.7 FL (7.4-10.4); MONOCYTES # (AUTO) 1.4 X10'3 (0-0.9); MONOCYTES % (AUTO) 9.9 % (2-12); NEUTROPHILS # (AUTO) 11.1 X10'3 (1.8-7.7); NEUTROPHILS % (AUTO) 81.1 % (42-75); PLATELET COUNT 93 X10'3 (140-440); RED BLOOD COUNT 4.08 X10'6 (4.20-5.60); RED CELL DISTRIBUTION WIDTH 19.7 % (11.5-14.5); WHITE BLOOD COUNT 13.7 X10'3 (4.5-11.0)
[2021-04-05 07:06] LABS: ALANINE AMINOTRANSFERASE 331 U/L (12-78); ALBUMIN 2.8 G/DL (3.4-5.0); ALBUMIN/GLOBULIN RATIO 0.6 (1.1-1.5); ALKALINE PHOSPHATASE 82 IU/L (46-116); ANION GAP 15 (8-16); ASPARTATE AMINO TRANSFERASE 211 U/L (10-37); CALCIUM 7.7 MG/DL (8.5-10.1); CHLORIDE 98 MMOL/L (99-107); CREATININE 4.01 MG/DL (0.40-0.90); GLUCOSE 71 MG/DL (70-104); LIPASE 662 U/L (73-393); MAGNESIUM 2.7 MG/DL (1.5-2.4); PHOSPHORUS 6.8 MG/DL (2.3-4.5); POTASSIUM 5.3 MMOL/L (3.5-5.1); SODIUM 128 MMOL/L (135-145); TOTAL CARBON DIOXIDE 15.3 MMOL/L (24-32); TOTAL PROTEIN 7.3 G/DL (6.4-8.2); eGFR 11 ML/MIN
[2021-04-05 07:19] LABS: BLOOD UREA NITROGEN 124 MG/DL (7-18); BUN/CREATININE RATIO 30.9 (6.6-38.0)
--- NOTE | 2021-04-05 07:30 | NUR ---
PAGER ID: [phone] MESSAGE: Room 310, Jennifer, Paula. BP 83/46 (56), 80/39 (53). NA 128. Allyson [phone]
--- NOTE | 2021-04-05 07:44 | NUR ---
MD order: 500 ml NS bolus. Hold all HTN meds. Manual BP's
--- NOTE | 2021-04-05 07:58 | NUR ---
PAGER ID: [phone] MESSAGE: Juaquin Scherer, Paula Rodriguez. Manual BP 96/68 (82). Please call me. Allyson [phone]
[2021-04-05] MEDS: K and/or MAG REPLACEMENT MC SCH ×2 (08:00→20:00)
[2021-04-05] MEDS ORDERED: furosemide 40mg/4ml inj IV ONE ×2 (08:25→08:30)
[2021-04-05] MEDS ORDERED: furosemide 40mg/4ml inj ONE (08:27)
--- NOTE | 2021-04-05 08:38 | NUR ---
Per MD Dutta - Transfer to ICU. Stat orders entered and administered. Called daughter Neetu [phone]. Voicemail is full - cannot leave message.
[2021-04-05 08:49] LABS: ANISOCYTOSIS 2+; PLATELET ESTIMATE DECREASED
[2021-04-05 08:49] LABS: ABG BASE EXCESS -11.8 mmol/L (-2.0-2.0); ABG HCO3 15.3 mmol/L (22.0-26.0); ABG OXYGEN SATURATION 77.4 % (94-97); ABG PCO2 (T) 38.4 mmHg (32.0-45.0); ABG PO2 (T) 46.6 mmHg (75.0-100.0); ALLEN'S TEST POSITIVE; FCOHb 1.4 % (0.0-3.9); FLOW 2 L/min; FMetHb 0.2 % (0.0-1.5); FO2Hb 76.2 % (94-97); PATIENT TEMPERATURE 36.5; TOTAL HEMOGLOBIN 12.2 G/dl (12.0-16.0)
[2021-04-05 08:50] LABS: BURR CELLS 2+; ELLIPTOCYTES 1+
[2021-04-05 08:52] LABS: LARGE PLATELETS FEW; POLYCHROMASIA FEW
[2021-04-05] MEDS ORDERED: albumin (human) 25% 100ml IV 100 ML IV PRN (08:55)
[2021-04-05] MEDS ORDERED: normal saline 1000ml 100 ML IV PRN (08:55)
[2021-04-05] MEDS ORDERED: heparin 1,000 units/ml 10ml inj HE ONE ×3 (09:00→09:30)
--- NOTE | 2021-04-05 09:04 | NUR ---
Problems reprioritized. Patient report given, questions answered & plan of care reviewed with ROBERTO Ireland.
[2021-04-05 09:23] LABS: ABG BASE EXCESS -11.7 mmol/L (-2.0-2.0); ABG OXYGEN SATURATION 98.7 % (94-97); ABG PO2 (T) 117.9 mmHg (75.0-100.0); FCOHb 0.7 % (0.0-3.9); FLOW 2 L/min; FMetHb 0.4 % (0.0-1.5); FO2Hb 97.6 % (94-97); PATIENT TEMPERATURE 36.6; TOTAL HEMOGLOBIN 12.2 G/dl (12.0-16.0)
[2021-04-05] MEDS ORDERED: DOBUTamine-DoBUTrex 500mg/D5W 250 ML IV ONE (10:07)
[2021-04-05 10:44] LABS: OXYGEN SATURATION (MIXED VEN) 68.2 % (60-80); PO2 MIXED VENOUS (TEMP COR) 37.3 mmHg (35-46)
[2021-04-05] MEDS: DOBUTamine-DoBUTrex 500mg/D5W 250 ML IV PRN (11:15)
[2021-04-05] MEDS ORDERED: NORepinephrine 8mg/ 250ml NS 250 ML IV ONE (11:40)
[2021-04-05] MEDS: NORepinephrine 8mg/ 250ml NS 250 ML IV SCH ×2 (11:42→20:44)
[2021-04-05 12:43] LABS: CLARITY,URINE TURBID (Clear); COLOR,URINE AMBER (Yellow); GLUCOSE, URINE 100 mg/dl (Neg); KETONES,URINE TRACE mg/dl (Neg); LEUKOCYTE ESTERASE ,URINE MODERATE (Neg); NITRITES, URINE POSITIVE (Neg); OCCULT BLOOD,URINE LARGE (Neg); PROTEIN,URINE >=300 mg/dl (Neg)
[2021-04-05 12:44] LABS: UA COLLECTION TYPE STRAIGHT CATH
[2021-04-05 12:46] LABS: BACTERIA,URINE 2+ /HPF (Neg); RBC,URINE TNTC /HPF (0-2)
[2021-04-05 12:48] LABS: URINE AMPHETAMINE SCREEN POSITIVE (Neg); URINE BARBITUATE SCREEN NEGATIVE (Neg); URINE BENZODIAZEPINES SCREEN NEGATIVE (Neg); URINE CANNABINOID SCREEN NEGATIVE (Neg); URINE COCAINE SCREEN NEGATIVE (Neg); URINE METHADONE SCREEN NEGATIVE (Neg); URINE OPIATE SCREEN POSITIVE (Neg); URINE PHENCYCLIDINE SCREEN NEGATIVE (Neg)
[2021-04-05] MEDS: furosemide 20 MG/2 ML vial IV SCH ×2 (12:48→20:00)
[2021-04-05 12:49] LABS: HYALINE CASTS 0-3 /LPF (NEGATIVE); SQUAMOUS EPITHELIAL CELL,UR MODERATE /LPF (FEW); TRANSITIONAL EPI CELLS,URINE MODERATE /HPF
[2021-04-05] MEDS: folic acid 1mg tablet PO SCH (12:49)
[2021-04-05] MEDS: lactobacillus rhamnosus 10,000 MMU CELLS/CAPSULE PO SCH ×2 (12:49→20:33)
[2021-04-05] MEDS: apixaban 5mg tablet PO SCH ×2 (12:49→20:00)
[2021-04-05] MEDS: docusate sod 100mg capsule PO SCH ×2 (12:49→20:00)
[2021-04-05] MEDS: PARoxetine 20mg tablet PO SCH (12:50)
[2021-04-05] MEDS: thiamine 100mg tablet PO SCH (12:50)
[2021-04-05] MEDS: multivitamins, therapeutics tablet PO SCH (12:50)
[2021-04-05] MEDS: metoprolol succinate 25mg (24-HOUR) SR. Tablet PO SCH (12:50)
[2021-04-05] MEDS: cetirizine 10mg tablet PO SCH (12:51)
[2021-04-05] MEDS: cholecalciferol (vitamin D3) 1,000 unit (25mcg) tablet PO SCH (12:51)
[2021-04-05] MEDS: aspirin 81mg tablet.DR PO SCH (12:54)
[2021-04-05 13:35] LABS: TOTAL PROTEIN,URINE RANDOM 442.8 MG/DL
[2021-04-05 13:46] LABS: UA EOSINOPHILS NO EOS /HPF
[2021-04-05] MEDS: mineral oil/petrolatum, white cream 113gm jar TP SCH ×2 (14:12→20:00)
[2021-04-05] MEDS: CefTRIAXone/D5W-Rocephin 1gm 50 ML IV SCH (14:12)
[2021-04-05] MEDS ORDERED: iohexol 350MG/ML 100ml bottle IV ONE (14:59)
--- NOTE | 2021-04-05 16:00 | NUR ---
12 HOUR URINE COLLECTION STARTED 04/05/21 AT 1600.
[2021-04-05] MEDS: pantoprazole 40MG/NS 100ML BAG 100 ML IV SCH ×2 (16:35→20:33)
--- NOTE | 2021-04-05 17:53 | NUR ---
NG TUBE PLACED RIGHT NARE BY PALAK BALDWIN, CHLORINE CELL TENDER
--- NOTE | 2021-04-05 18:00 | NUR ---
PER DR PEREA, 12 HOUR URINE TO BE DONE. AFTER SPEAKING WITH LAB, UNABLE TO PERFORM THIS TEST THEY DO NOT HAVE NORMAL VALUES FOR THIS TIME FRAME. 24 HOUR URINE COLLECTION STARTED AT 1600 ON 04/05/2021
--- NOTE | 2021-04-05 18:30 | NUR ---
Patient in room ICU 2039. I have received report from Gisela MEJIA and had the opportunity to ask questions and assume patient care.
[2021-04-05 19:46] LABS: ANION GAP 18 (8-16); BLOOD UREA NITROGEN 127 MG/DL (7-18); BUN/CREATININE RATIO 30.7 (6.6-38.0); CHLORIDE 99 MMOL/L (99-107); CREATININE 4.14 MG/DL (0.40-0.90); GLUCOSE 74 MG/DL (70-104); POTASSIUM 5.5 MMOL/L (3.5-5.1); SODIUM 132 MMOL/L (135-145); TOTAL CARBON DIOXIDE 15.3 MMOL/L (24-32); eGFR 11 ML/MIN
[2021-04-05] MEDS: lactulose 20gm/30ml cup NG SCH (20:32)
--- NOTE | 2021-04-05 22:17 | NUR ---
Patient confused, moans, attempts to pull at lines but awakens to voice and answers questions when asked.
[2021-04-06] VITALS (24 sets, daily range): BP systolic 11–126; BP diastolic 47–70
[2021-04-06] MEDS: pantoprazole 40MG/NS 100ML BAG 100 ML IV SCH ×5 (01:38→20:42)
[2021-04-06 03:11] LABS: BASOPHILS % (AUTO) 0.2 % (0-1); EOSINOPHILS # (AUTO) 0.1 X10'3 (0-0.9); EOSINOPHILS % (AUTO) 0.4 % (0-6); HEMATOCRIT 31.6 % (35.0-45.0); HEMOGLOBIN 9.8 g/dl (12.0-16.0); LYMPHOCYTES # (AUTO) 0.7 X10'3 (1.1-4.8); LYMPHOCYTES % (AUTO) 5.5 % (21-51); MEAN CORPUSCULAR HEMOGLOBIN 26.8 PG (27.0-31.0); MEAN CORPUSCULAR HGB CONC 31.1 g/dL (33.0-36.5); MEAN CORPUSCULAR VOLUME 86.1 FL (78-98); MEAN PLATELET VOLUME 9.2 FL (7.4-10.4); MONOCYTES # (AUTO) 1.1 X10'3 (0-0.9); MONOCYTES % (AUTO) 8.9 % (2-12); NEUTROPHILS # (AUTO) 10.9 X10'3 (1.8-7.7); PLATELET COUNT 77 X10'3 (140-440); RED BLOOD COUNT 3.67 X10'6 (4.20-5.60); RED CELL DISTRIBUTION WIDTH 19.3 % (11.5-14.5); WHITE BLOOD COUNT 12.9 X10'3 (4.5-11.0)
[2021-04-06 03:50] LABS: ALANINE AMINOTRANSFERASE 229 U/L (12-78); ALBUMIN 3.1 G/DL (3.4-5.0); ALBUMIN/GLOBULIN RATIO 0.9 (1.1-1.5); ALKALINE PHOSPHATASE 65 IU/L (46-116); ANION GAP 17 (8-16); ASPARTATE AMINO TRANSFERASE 138 U/L (10-37); BILIRUBIN,TOTAL 2.4 MG/DL (0.1-1.0); BLOOD UREA NITROGEN 68 MG/DL (7-18); BUN/CREATININE RATIO 25.5 (6.6-38.0); CALCIUM 7.8 MG/DL (8.5-10.1); CHLORIDE 101 MMOL/L (99-107); CREATININE 2.67 MG/DL (0.40-0.90); GLUCOSE 96 MG/DL (70-104); LIPASE 357 U/L (73-393); MAGNESIUM 2.2 MG/DL (1.5-2.4); PHOSPHORUS 5.7 MG/DL (2.3-4.5); POTASSIUM 3.9 MMOL/L (3.5-5.1); SODIUM 137 MMOL/L (135-145); TOTAL CARBON DIOXIDE 18.8 MMOL/L (24-32); TOTAL PROTEIN 6.7 G/DL (6.4-8.2); eGFR 18 ML/MIN
[2021-04-06 04:26] LABS: ANISOCYTOSIS 2+; PLATELET ESTIMATE DECREASED
[2021-04-06 04:27] LABS: BURR CELLS 2+; ELLIPTOCYTES 2+
--- NOTE | 2021-04-06 06:28 | NUR ---
Problems reprioritized. Patient report given, questions answered & plan of care reviewed with Janelle MEJIA.
[2021-04-06] MEDS: furosemide 20 MG/2 ML vial IV SCH ×2 (07:51→20:42)
[2021-04-06] MEDS: lactobacillus rhamnosus 10,000 MMU CELLS/CAPSULE PO SCH ×2 (07:51→20:42)
[2021-04-06] MEDS: PARoxetine 20mg tablet PO SCH (07:51)
[2021-04-06] MEDS: apixaban 5mg tablet PO SCH (07:52)
[2021-04-06] MEDS: folic acid 1mg tablet PO SCH (07:52)
[2021-04-06] MEDS: cetirizine 10mg tablet PO SCH (07:52)
[2021-04-06] MEDS: thiamine 100mg tablet PO SCH (07:52)
[2021-04-06] MEDS: multivitamins, therapeutics tablet PO SCH (07:52)
[2021-04-06] MEDS: docusate sod 100mg capsule PO SCH (07:52)
[2021-04-06] MEDS: K and/or MAG REPLACEMENT MC SCH ×2 (08:00→20:00)
[2021-04-06] MEDS: mineral oil/petrolatum, white cream 113gm jar TP SCH ×2 (08:00→20:06)
[2021-04-06] MEDS: metoprolol succinate 25mg (24-HOUR) SR. Tablet PO SCH (08:00)
[2021-04-06] MEDS ORDERED: normal saline 1000ml 250 ML IV PRN (08:10)
[2021-04-06] MEDS ORDERED: normal saline 1000ml 100 ML IV PRN (08:10)
[2021-04-06] MEDS ORDERED: heparin 1,000 units/ml 10ml inj HE ONE ×2 (08:15→08:35)
[2021-04-06] MEDS: CefTRIAXone/D5W-Rocephin 1gm 50 ML IV SCH (08:19)
[2021-04-06] MEDS: lactulose 20gm/30ml cup NG SCH ×2 (08:19→20:41)
[2021-04-06] MEDS: NORepinephrine 8mg/ 250ml NS 250 ML IV SCH ×2 (08:21→17:23)
[2021-04-06] MEDS: cholecalciferol (vitamin D3) 1,000 unit (25mcg) tablet PO SCH (08:23)
[2021-04-06] MEDS: hydrocortisone sod succ/PF 100mg/2ml inj. IV SCH ×3 (08:40→23:56)
--- NOTE | 2021-04-06 11:09 | NUR ---
TF consult: Pt admit for bilateral pedal edema with cellulitis of bilat feet between the webbings of toes and JAMAL/CKD. Per WOC notes pt with a partial thickness open wound to the left foot between great toe and 2nd toe and multiple BLE scattered healing scabs, stable with no openings. Pt s/p rapid response 04/05 and transferred to ICU and started on dialysis. Per physical assessment pt increasingly confused and not alert or oriented. NG tube placed and pt started on Nepro at 30 mL/hr per MD. See below for TF goal rate recommendations. LBM 04/05. Will continue to follow closely and make recommendations as appropriate. Recommendations: 1) Continuous TF via NG tube using Nepro with goal rate of 50 mL/hr to provide: 1200 mL total volume/day, 2160 kcal, 97 g protein, and 872 mL water 2) Additional water flush per MD 3) Prealbumin q Friday/ 4) Daily weights 5) Consider Phos binder with MD approval 6) Routine bowel care 7) Consider BSS with ST prior to diet advancement; continue TF with diet advancement until pt able to tolerate average 65% PO intake of meals Addendum: 04/06/21 at [address] Amended: Links added. Addendum: 04/06/21 at [address] CORRECTION: Pt to receive Nepro at 60 mL/hr per MD. To provide: 1440 mL total volume/day, 2592 kcal, 117 g protein, and 1047 mL water
[2021-04-06] MEDS ORDERED: LORazepam 1 MG tablet NG PRN ×2 (13:02→13:04)
[2021-04-06] MEDS ORDERED: oxyCODONE IR 5mg (immed. release) tablet NG PRN (13:05)
[2021-04-06 17:03] LABS: UREA NITROGEN 24HR,URINE 5.2 GM/24HR (7-20)
--- NOTE | 2021-04-06 18:30 | NUR ---
Patient in room ICU 2039. I have received report from Janelle MEJIA and had the opportunity to ask questions and assume patient care. Addendum: 04/06/21 at 2111 by Susanna Rivera RN Amended: Links added.
[2021-04-06] MEDS: apixaban 5mg tablet NG SCH (20:41)
[2021-04-06] MEDS: docusate sodium 100mg/10ml UD cup NG SCH (20:41)
[2021-04-07] VITALS (24 sets, daily range): BP systolic 92–117; BP diastolic 43–70
--- NOTE | 2021-04-07 00:22 | NUR ---
Titrating Levophed as tolerated. Patient answers questions appropriately at times. Has had several large dark brown liquid stools, no cas blood observed.
[2021-04-07] MEDS ORDERED: LORazepam 1 MG tablet NG PRN (01:15)
[2021-04-07 02:50] LABS: BASOPHILS % (AUTO) 0 % (0-1); EOSINOPHILS % (AUTO) 0 % (0-6); HEMOGLOBIN 10.4 g/dl (12.0-16.0); LYMPHOCYTES # (AUTO) 0.3 X10'3 (1.1-4.8); MEAN CORPUSCULAR HEMOGLOBIN 26.8 PG (27.0-31.0); MEAN CORPUSCULAR HGB CONC 31.6 g/dL (33.0-36.5); MEAN CORPUSCULAR VOLUME 84.9 FL (78-98); MEAN PLATELET VOLUME 8.8 FL (7.4-10.4); MONOCYTES # (AUTO) 0.8 X10'3 (0-0.9); MONOCYTES % (AUTO) 7.5 % (2-12); NEUTROPHILS # (AUTO) 10.2 X10'3 (1.8-7.7); NEUTROPHILS % (AUTO) 89.5 % (42-75); PLATELET COUNT 66 X10'3 (140-440); RED BLOOD COUNT 3.88 X10'6 (4.20-5.60); RED CELL DISTRIBUTION WIDTH 19.7 % (11.5-14.5); WHITE BLOOD COUNT 11.4 X10'3 (4.5-11.0)
[2021-04-07 02:58] LABS: ALANINE AMINOTRANSFERASE 191 U/L (12-78); ALBUMIN 2.8 G/DL (3.4-5.0); ALBUMIN/GLOBULIN RATIO 0.8 (1.1-1.5); ALKALINE PHOSPHATASE 95 IU/L (46-116); ANION GAP 8 (8-16); ASPARTATE AMINO TRANSFERASE 100 U/L (10-37); BILIRUBIN,TOTAL 1.8 MG/DL (0.1-1.0); BLOOD UREA NITROGEN 42 MG/DL (7-18); BUN/CREATININE RATIO 23.1 (6.6-38.0); CALCIUM 7.8 MG/DL (8.5-10.1); CHLORIDE 104 MMOL/L (99-107); CREATININE 1.82 MG/DL (0.40-0.90); GLUCOSE 192 MG/DL (70-104); LIPASE 389 U/L (73-393); MAGNESIUM 2.1 MG/DL (1.5-2.4); PHOSPHORUS 3.4 MG/DL (2.3-4.5); POTASSIUM 3.1 MMOL/L (3.5-5.1); SODIUM 139 MMOL/L (135-145); TOTAL CARBON DIOXIDE 26.6 MMOL/L (24-32); TOTAL PROTEIN 6.5 G/DL (6.4-8.2); eGFR 28 ML/MIN
[2021-04-07] MEDS: pantoprazole 40MG/NS 100ML BAG 100 ML IV SCH ×5 (03:51→19:52)
--- NOTE | 2021-04-07 04:50 | NUR ---
updated on patient's status and latest labs. No new orders at this time.
--- NOTE | 2021-04-07 06:12 | NUR ---
Problems reprioritized. Patient report given, questions answered & plan of care reviewed with Janelle MEJIA.
[2021-04-07] MEDS: docusate sodium 100mg/10ml UD cup NG SCH ×2 (08:00→19:52)
[2021-04-07] MEDS: metoprolol succinate 25mg (24-HOUR) SR. Tablet PO SCH (08:00)
[2021-04-07] MEDS: lactulose 20gm/30ml cup NG SCH ×2 (08:13→19:52)
[2021-04-07] MEDS: CefTRIAXone/D5W-Rocephin 1gm 50 ML IV SCH (08:13)
[2021-04-07] MEDS: furosemide 20 MG/2 ML vial IV SCH ×2 (08:13→19:53)
[2021-04-07] MEDS: thiamine 100mg tablet NG SCH (08:14)
[2021-04-07] MEDS: cetirizine 10mg tablet NG SCH (08:14)
[2021-04-07] MEDS: lactobacillus rhamnosus 10,000 MMU CELLS/CAPSULE PO SCH ×2 (08:14→19:52)
[2021-04-07] MEDS: folic acid 1mg tablet NG SCH (08:14)
[2021-04-07] MEDS: PARoxetine 20mg tablet NG SCH (08:15)
[2021-04-07] MEDS: cholecalciferol (vitamin D3) 1,000 unit (25mcg) tablet NG SCH (08:16)
[2021-04-07] MEDS: MULTIVIT-MIN/FERROUS GLUCONATE 9 MG/15 ML LIQUID NG SCH (08:16)
[2021-04-07] MEDS: apixaban 5mg tablet NG SCH ×2 (08:16→19:52)
[2021-04-07] MEDS: hydrocortisone sod succ/PF 100mg/2ml inj. IV SCH (08:16)
[2021-04-07] MEDS: mineral oil/petrolatum, white cream 113gm jar TP SCH ×2 (08:17→19:52)
[2021-04-07] MEDS: K and/or MAG REPLACEMENT MC SCH ×2 (08:54→11:50)
[2021-04-07] MEDS: aspirin 81mg tab.chew NG SCH (09:45)
[2021-04-07] MEDS ORDERED: magnesium Cl slow-release 64mg tablet PO PRN (11:50)
[2021-04-07] MEDS ORDERED: potassium Cl 20 mEq SR tablet PO PRN (11:50)
[2021-04-07 12:42] LABS: OXYGEN SATURATION (MIXED VEN) 72.6 % (60-80); PO2 MIXED VENOUS (TEMP COR) 38.1 mmHg (35-46)
[2021-04-07] MEDS: potassium Cl 20 mEq SR tablet PO PRN ×2 (14:52→19:53)
[2021-04-07] MEDS ORDERED: vasoPRESSIN 20 units/ml inj. ONE (15:33)
[2021-04-07] MEDS: DOBUTamine-DoBUTrex 500mg/D5W 250 ML IV PRN (16:46)
--- NOTE | 2021-04-07 17:30 | NUR ---
right femoral arterial line was removed, pressure on site till bleeding stopped. Patient more alert and conversant. given ice chips tolerating well. Patient still having miltiple loose bm, blackish to brownish in color.
--- NOTE | 2021-04-07 18:21 | NUR ---
Patient in room ICU 2039. I have received report from Janelle MEJIA and had the opportunity to ask questions and assume patient care.
[2021-04-07] MEDS: NORepinephrine 8mg/ 250ml NS 250 ML IV SCH (19:16)
[2021-04-07] MEDS ORDERED: POTASSIUM BICARB 20meq eff tab 20 MEQ TABLET.EFF PO PRN (21:30)
--- NOTE | 2021-04-07 21:38 | NUR ---
Pt very resistive to care. Does not want moved, touched, cleaned or taken care of in any way. Educated on all interventions. Pt does not have family or friends to help at home. She does not know, or care at this time, what home meds she takes, or is supposed to take. Further education needed and follow up for home care as well as making an advance directive to have the proper code status for next time she needs hospital care.
[2021-04-07] MEDS: POTASSIUM BICARB 20meq eff tab 20 MEQ TABLET.EFF NG PRN (23:30)
[2021-04-08] VITALS (20 sets, daily range): BP systolic 92–122; BP diastolic 49–73
[2021-04-08] MEDS: pantoprazole 40MG/NS 100ML BAG 100 ML IV SCH ×5 (01:18→23:09)
[2021-04-08 03:15] LABS: BASOPHILS % (AUTO) 0 % (0-1); EOSINOPHILS % (AUTO) 0 % (0-6); HEMATOCRIT 33.5 % (35.0-45.0); HEMOGLOBIN 10.5 g/dl (12.0-16.0); LYMPHOCYTES # (AUTO) 0.4 X10'3 (1.1-4.8); LYMPHOCYTES % (AUTO) 3.3 % (21-51); MEAN CORPUSCULAR HGB CONC 31.5 g/dL (33.0-36.5); MEAN CORPUSCULAR VOLUME 85.7 FL (78-98); MONOCYTES % (AUTO) 7.9 % (2-12); NEUTROPHILS # (AUTO) 11.1 X10'3 (1.8-7.7); NEUTROPHILS % (AUTO) 88.8 % (42-75); PLATELET COUNT 58 X10'3 (140-440); RED BLOOD COUNT 3.91 X10'6 (4.20-5.60); RED CELL DISTRIBUTION WIDTH 20.3 % (11.5-14.5); WHITE BLOOD COUNT 12.5 X10'3 (4.5-11.0)
[2021-04-08 03:25] LABS: ALANINE AMINOTRANSFERASE 148 U/L (12-78); ALBUMIN 2.5 G/DL (3.4-5.0); ALBUMIN/GLOBULIN RATIO 0.7 (1.1-1.5); ALKALINE PHOSPHATASE 100 IU/L (46-116); ANION GAP 9 (8-16); ASPARTATE AMINO TRANSFERASE 82 U/L (10-37); BILIRUBIN,TOTAL 1.3 MG/DL (0.1-1.0); BLOOD UREA NITROGEN 49 MG/DL (7-18); BUN/CREATININE RATIO 29.2 (6.6-38.0); CALCIUM 7.6 MG/DL (8.5-10.1); CHLORIDE 107 MMOL/L (99-107); CREATININE 1.68 MG/DL (0.40-0.90); GLUCOSE 155 MG/DL (70-104); LIPASE 492 U/L (73-393); PHOSPHORUS 2.5 MG/DL (2.3-4.5); SODIUM 144 MMOL/L (135-145); TOTAL CARBON DIOXIDE 27.9 MMOL/L (24-32); eGFR 31 ML/MIN
[2021-04-08] MEDS: POTASSIUM BICARB 20meq eff tab 20 MEQ TABLET.EFF NG PRN ×3 (03:50→12:00)
--- NOTE | 2021-04-08 06:21 | NUR ---
Problems reprioritized. Patient report given, questions answered & plan of care reviewed with Oncoming Shift RN.
[2021-04-08 06:35] LABS: ANISOCYTOSIS 3+; ELLIPTOCYTES 1+; HYPOCHROMASIA 1+; PLATELET ESTIMATE DECREASED; POLYCHROMASIA 1+; TEAR DROP CELLS 1+
[2021-04-08 06:36] LABS: BURR CELLS FEW
[2021-04-08] MEDS: K and/or MAG REPLACEMENT MC SCH (08:00)
[2021-04-08] MEDS: docusate sodium 100mg/10ml UD cup NG SCH ×2 (08:00→21:20)
[2021-04-08] MEDS: cholecalciferol (vitamin D3) 1,000 unit (25mcg) tablet NG SCH (08:13)
[2021-04-08] MEDS: folic acid 1mg tablet NG SCH (08:13)
[2021-04-08] MEDS: MULTIVIT-MIN/FERROUS GLUCONATE 9 MG/15 ML LIQUID NG SCH (08:13)
[2021-04-08] MEDS: furosemide 20 MG/2 ML vial IV SCH ×2 (08:13→21:20)
[2021-04-08] MEDS: apixaban 5mg tablet NG SCH ×2 (08:13→21:21)
[2021-04-08] MEDS: PARoxetine 20mg tablet NG SCH (08:13)
[2021-04-08] MEDS: lactulose 20gm/30ml cup NG SCH ×2 (08:13→21:20)
[2021-04-08] MEDS: aspirin 81mg tab.chew NG SCH (08:14)
[2021-04-08] MEDS: thiamine 100mg tablet NG SCH (08:14)
[2021-04-08] MEDS: lactobacillus rhamnosus 10,000 MMU CELLS/CAPSULE PO SCH ×2 (08:14→21:21)
[2021-04-08] MEDS: cetirizine 10mg tablet NG SCH (08:14)
[2021-04-08] MEDS: mineral oil/petrolatum, white cream 113gm jar TP SCH ×2 (08:23→22:00)
[2021-04-08] MEDS: metoprolol succinate 25mg (24-HOUR) SR. Tablet PO SCH (09:57)
[2021-04-08] MEDS ORDERED: magnesium 2GM in 50ml NS 50 ML IV ONE (10:35)
[2021-04-08 11:45] LABS: OXYGEN SATURATION (MIXED VEN) 81.1 % (60-80); PO2 MIXED VENOUS (TEMP COR) 43.7 mmHg (35-46)
--- NOTE | 2021-04-08 12:32 | NUR ---
Patient can be very resistive to care. Patient moan and says "ow" without being touched but refuses any pain management interventions. Patient refuses to help turn to clean her up when she has a bowel movement and says "just leave me in it". patient was educated on risks involved with leaving patient in waste product, patient fell back to sleep during turn and teaching and RN proceeded with cleaning the patient up.
--- NOTE | 2021-04-08 17:44 | NUR ---
Patient report given to Virginia on tele.
--- NOTE | 2021-04-08 18:13 | NUR ---
Patient transferred to room 3028 via bed with tech and primary RN. Patient hooked to tele monitor prior to transfer. Patient in no apparent distress at time of transfer. All patient specific medications were sent with patient as well as chart. Patient belongings were also sent with patient. ROBERTO Coleman bedside to receive patient.
--- NOTE | 2021-04-08 18:30 | NUR ---
Passed care on to Kiki MEJIA.
--- NOTE | 2021-04-08 18:39 | NUR ---
Received report from Virginia MEJIA, rounded on patient together. Patient stable. Feeding tube in place, restraints on, patient repositioned in bed. Dressing on neck and groin intact, no bleeding or hematomas. Patient denies needs.
[2021-04-08] MEDS: ondansetron/PF 4mg/2ml inj IV PRN (21:31)
[2021-04-08] MEDS ORDERED: insulin Lispro (HumaLOG) vial - multi-dose SQ SCH (22:05)
[2021-04-08] MEDS ORDERED: dextrose 50%-water 50ml dispensing syringe IV PRN ×2 (22:05)
[2021-04-08] MEDS ORDERED: MESSAGE TO PHARMACY PO ONE (22:05)
[2021-04-08] MEDS ORDERED: glucagon, human recombinant 1mg kit SUBCUT PRN (22:05)
[2021-04-08] MEDS ORDERED: dextrose ORAL solution 15 GM/59 ML bottle PO PRN ×2 (22:05)
[2021-04-08] MEDS: insulin glargine (Lantus) pen - multi-dose SQ SCH (22:37)
[2021-04-09] MEDS: pantoprazole 40MG/NS 100ML BAG 100 ML IV SCH ×3 (01:00→09:52)
[2021-04-09 02:00] VITALS: BP 106/59
--- NOTE | 2021-04-09 03:53 | NUR ---
Doctor paged for restraint renewal PAGER ID: [phone] MESSAGE: Re: Paula Rodriguez 60F rm [id number] here for acute liver failure and elevated troponins. Pt is confused & pulling at lines & NG tube & is unable to follow directions. May we have an order for restraint renewal? Kiki [phone]
--- NOTE | 2021-04-09 03:55 | NUR ---
Spoke to Dr. Dutta on the phone, restraint order has been renewed
--- NOTE | 2021-04-09 05:42 | NUR ---
Patient oriented to self, confused and agitated while staff in room, wants to be left alone. Had frequent liquid stools. Slept most of the night. Resistive to care.
[2021-04-09 06:25] LABS: BASOPHILS % (AUTO) 0.2 % (0-1); EOSINOPHILS # (AUTO) 0.1 X10'3 (0-0.9); EOSINOPHILS % (AUTO) 0.8 % (0-6); HEMOGLOBIN 10.6 g/dl (12.0-16.0); LYMPHOCYTES # (AUTO) 0.9 X10'3 (1.1-4.8); LYMPHOCYTES % (AUTO) 7.6 % (21-51); MEAN CORPUSCULAR HEMOGLOBIN 26.8 PG (27.0-31.0); MEAN CORPUSCULAR HGB CONC 31.3 g/dL (33.0-36.5); MEAN CORPUSCULAR VOLUME 85.8 FL (78-98); MEAN PLATELET VOLUME 9.2 FL (7.4-10.4); MONOCYTES # (AUTO) 1.3 X10'3 (0-0.9); MONOCYTES % (AUTO) 10.8 % (2-12); NEUTROPHILS # (AUTO) 9.5 X10'3 (1.8-7.7); NEUTROPHILS % (AUTO) 80.6 % (42-75); PLATELET COUNT 68 X10'3 (140-440); RED BLOOD COUNT 3.96 X10'6 (4.20-5.60); RED CELL DISTRIBUTION WIDTH 20.1 % (11.5-14.5); WHITE BLOOD COUNT 11.8 X10'3 (4.5-11.0)
--- NOTE | 2021-04-09 06:36 | NUR ---
Problems reprioritized. Patient report given, questions answered & plan of care reviewed with Gisela MEJIA. Rounded on patient together, found right PIV bleeding. IV protonix switched to left PIV. Day RN to D/C right PIV.
[2021-04-09 06:44] LABS: ALANINE AMINOTRANSFERASE 145 U/L (12-78); ALBUMIN 2.6 G/DL (3.4-5.0); ALBUMIN/GLOBULIN RATIO 0.7 (1.1-1.5); ALKALINE PHOSPHATASE 95 IU/L (46-116); ANION GAP 6 (8-16); ASPARTATE AMINO TRANSFERASE 84 U/L (10-37); BILIRUBIN,TOTAL 1.1 MG/DL (0.1-1.0); BLOOD UREA NITROGEN 56 MG/DL (7-18); BUN/CREATININE RATIO 33.9 (6.6-38.0); CALCIUM 8.2 MG/DL (8.5-10.1); CHLORIDE 111 MMOL/L (99-107); CREATININE 1.65 MG/DL (0.40-0.90); GLUCOSE 134 MG/DL (70-104); MAGNESIUM 2.2 MG/DL (1.5-2.4); POTASSIUM 3.3 MMOL/L (3.5-5.1); PREALBUMIN 10.5 MG/DL (19-36); SODIUM 148 MMOL/L (135-145); TOTAL CARBON DIOXIDE 31.1 MMOL/L (24-32); TOTAL PROTEIN 6.4 G/DL (6.4-8.2); eGFR 32 ML/MIN
--- NOTE | 2021-04-09 07:00 | NUR ---
Patient in room PCU 3028. I have received report from Kiki MEJIA and had the opportunity to ask questions and assume patient care. Patient is awake and oriented to self, bleeding from PIV site on right wrist, ghosh in place and functioning, tube feed running at oal, will continue to monitor.
[2021-04-09 08:00] VITALS: BP 112/64
[2021-04-09] MEDS: PARoxetine 20mg tablet NG SCH (08:00)
[2021-04-09] MEDS: K and/or MAG REPLACEMENT MC SCH (08:00)
[2021-04-09] MEDS: docusate sodium 100mg/10ml UD cup NG SCH ×2 (08:00→20:20)
[2021-04-09] MEDS: metoprolol succinate 25mg (24-HOUR) SR. Tablet PO SCH (08:00)
[2021-04-09 08:27] LABS: HEMOGLOBIN A1C 6.2 % (4.5-6.2)
[2021-04-09] MEDS: furosemide 20 MG/2 ML vial IV SCH ×2 (08:56→20:20)
[2021-04-09] MEDS: lactulose 20gm/30ml cup NG SCH ×2 (08:56→20:20)
[2021-04-09] MEDS: MULTIVIT-MIN/FERROUS GLUCONATE 9 MG/15 ML LIQUID NG SCH (08:56)
[2021-04-09] MEDS: cetirizine 10mg tablet NG SCH (08:56)
[2021-04-09] MEDS: mineral oil/petrolatum, white cream 113gm jar TP SCH ×2 (08:57→20:20)
[2021-04-09] MEDS: folic acid 1mg tablet NG SCH (08:57)
[2021-04-09] MEDS: lactobacillus rhamnosus 10,000 MMU CELLS/CAPSULE PO SCH ×2 (08:57→20:20)
[2021-04-09] MEDS: apixaban 5mg tablet NG SCH (08:57)
[2021-04-09] MEDS: aspirin 81mg tab.chew NG SCH (08:57)
[2021-04-09] MEDS: thiamine 100mg tablet NG SCH (08:58)
[2021-04-09] MEDS: cholecalciferol (vitamin D3) 1,000 unit (25mcg) tablet NG SCH (08:58)
[2021-04-09] MEDS: POTASSIUM BICARB 20meq eff tab 20 MEQ TABLET.EFF NG PRN ×2 (08:58→16:41)
[2021-04-09] MEDS ORDERED: DOBUTamine-DoBUTrex 500mg/D5W 250 ML IV PRN (10:10)
--- NOTE | 2021-04-09 10:15 | NUR ---
PAGER ID: [phone] MESSAGE: [id number], [place]. Pt has not been dobutamine since he came up from ICU, is currently only on protonix gtt. Thanks, Gisela [phone]
[2021-04-09 10:36] LABS: PLATELET ESTIMATE DECREASED
[2021-04-09 10:37] LABS: ANISOCYTOSIS 3+
[2021-04-09 11:00] VITALS: BP 118/64
[2021-04-09 15:00] VITALS: BP 119/72
--- NOTE | 2021-04-09 16:48 | NUR ---
Kody Consult: Kody 11; noted partial thickness wound to L foot w/ maceration per WOC note; receiving adequate nutrition for skin integrity status. Pt advanced to pureed/thin diet per NAUMKEAG OPERATOR recs today PO 50% lunch first meal per RN. RN reports MD requests NG removal if PO persists; RD recommends monitoring for dinner PO prior to NG removal given pt AOx1 and PO likely to fluctuate. RD d/w RN if pt to continue NGTF w/ PO may benefit from titration to meet estimated recs as shown below. LB 04/09 receiving routine lactulose w/ rectal tube to be placed per MD note. Pt not to receive HD at this time w/ JAMAL per MD note. Will continue to monitor for PO tolerance, PO trends, and nutrition support needs as medically indicated. Recommendations: 1) Continue pureed/thin diet per NAUMKEAG OPERATOR/MD recs; encourage PO 2) IF PO remains below 50-65% avg meals; Continuous TF via NG tube using Nepro with goal rate of 60 mL/hr per MD. To provide: 1440 mL total volume/day, 2592 kcal, 117 g protein, and 1047 mL water 3) If remains NGTF dependent, titrate goal rate to 50 mL/hr to meet estimated needs; to provide: 1200 mL total volume/day, 2160 kcal, 97 g protein, and 872 mL water 4) Additional water flush per MD 5) Prealbumin q Friday/; daily wts 6) Monitor for ONS needs pending PO hx 7) Routine bowel care; routine lactulose per MD Addendum: 04/09/21 at [address] Amended: Links added.
[2021-04-09 18:00] VITALS: BP 129/85
--- NOTE | 2021-04-09 18:15 | NUR ---
Patient pulled her own NG tube out. Pt is eating half of her food and Dr. Mason had given an order to remove the NG tube if she was eating. Will leave NG tube out per order and monitor her nutrition.
--- NOTE | 2021-04-09 18:33 | NUR ---
Problems reprioritized. Patient report given, questions answered & plan of care reviewed with Kiki MEJIA.
--- NOTE | 2021-04-09 18:38 | NUR ---
Patient in room U 3028. I have received report from Gisela MEJIA and had the opportunity to ask questions and assume patient care. Rounded on patient together. Introduced self and discussed plan of care for the evening. Patient's NG tube is removed and patient is eating dinner with assistance. Patient denies needs
--- NOTE | 2021-04-09 20:00 | NUR ---
Patient has nose bleed in right nares. Gauze placed to stop bleeding.
[2021-04-09] MEDS: insulin glargine (Lantus) pen - multi-dose SQ SCH (21:00)
[2021-04-09 22:00] VITALS: BP 120/79
[2021-04-10] MEDS: POTASSIUM BICARB 20meq eff tab 20 MEQ TABLET.EFF NG PRN (00:21)
--- NOTE | 2021-04-10 00:39 | NUR ---
Patient has been coughing up blood clots, suctioned mouth and was able to removed approximately 5cm long blood clot.
--- NOTE | 2021-04-10 01:00 | NUR ---
Patient coughing up cas red blood. Suction at bedside, head of bed all the way up.
--- NOTE | 2021-04-10 01:14 | NUR ---
Dr. austin regarding hemoptysis. PAGER ID: [phone] MESSAGE: Re: Paula Rodriguez 60F rm [id number]. Here for acute liver failure, encephalopathy. NG tube has been removed, pt had nose bleed earlier. Pt coughing up blood clots and now coughing up cas red blood. Kiki [phone]
[2021-04-10] MEDS ORDERED: phytonadione inj. 5 MG in normal saline 100ml IV soln 100 ML IV ONE (01:25)
--- NOTE | 2021-04-10 01:29 | NUR ---
Spoke to Dr. Dutta. Doctor has ordered hemogram, Vitamin K, and chest x-ray.
--- NOTE | 2021-04-10 01:30 | NUR ---
Radiology paged Jennifer, Paula rm [id number]. has ordered urgent chest x-ray. Thank you.
[2021-04-10 01:58] LABS: BASOPHILS % (AUTO) 0.1 % (0-1); EOSINOPHILS # (AUTO) 0.1 X10'3 (0-0.9); EOSINOPHILS % (AUTO) 1.3 % (0-6); HEMATOCRIT 31.4 % (35.0-45.0); HEMOGLOBIN 9.9 g/dl (12.0-16.0); LYMPHOCYTES % (AUTO) 9.6 % (21-51); MEAN CORPUSCULAR HEMOGLOBIN 27.2 PG (27.0-31.0); MEAN CORPUSCULAR HGB CONC 31.5 g/dL (33.0-36.5); MEAN CORPUSCULAR VOLUME 86.2 FL (78-98); MEAN PLATELET VOLUME 9.2 FL (7.4-10.4); MONOCYTES # (AUTO) 0.9 X10'3 (0-0.9); MONOCYTES % (AUTO) 8.4 % (2-12); NEUTROPHILS # (AUTO) 8.7 X10'3 (1.8-7.7); NEUTROPHILS % (AUTO) 80.6 % (42-75); PLATELET COUNT 62 X10'3 (140-440); RED BLOOD COUNT 3.65 X10'6 (4.20-5.60); RED CELL DISTRIBUTION WIDTH 19.5 % (11.5-14.5); WHITE BLOOD COUNT 10.8 X10'3 (4.5-11.0)
[2021-04-10 02:00] VITALS: BP 117/77
[2021-04-10 02:04] LABS: PARTIAL THROMBOPLASTIN TIME 29 SECONDS (22-32)
[2021-04-10 02:07] LABS: ALANINE AMINOTRANSFERASE 130 U/L (12-78); ALBUMIN 2.6 G/DL (3.4-5.0); ALBUMIN/GLOBULIN RATIO 0.7 (1.1-1.5); ALKALINE PHOSPHATASE 81 IU/L (46-116); ANION GAP 7 (8-16); ASPARTATE AMINO TRANSFERASE 79 U/L (10-37); BILIRUBIN,TOTAL 1.3 MG/DL (0.1-1.0); BLOOD UREA NITROGEN 55 MG/DL (7-18); BUN/CREATININE RATIO 42.6 (6.6-38.0); CALCIUM 8.1 MG/DL (8.5-10.1); CHLORIDE 108 MMOL/L (99-107); CREATININE 1.29 MG/DL (0.40-0.90); GLUCOSE 106 MG/DL (70-104); SODIUM 146 MMOL/L (135-145); TOTAL CARBON DIOXIDE 31.1 MMOL/L (24-32); TOTAL PROTEIN 6.6 G/DL (6.4-8.2); eGFR 42 ML/MIN
--- NOTE | 2021-04-10 04:52 | NUR ---
PAGER ID: [phone] MESSAGE: [id number] Paula Rodriguez [phone]. Patient's nose is still bleeding pretty bad. We placed a nose clamp on but she's still bleeding. Can we get her a Rhino rocket for her nose? Get Ponce [phone] Addendum: 04/10/21 at 0531 by Get Simeon RN Dr. Montenegro from placed rhino rocket in right nare.
[2021-04-10] MEDS ORDERED: oxymetazoline 15 ML nasal spray NS ONE (05:09)
--- NOTE | 2021-04-10 05:20 | NUR ---
Rhino rocket placed by ED Doctor Lan. Patient tolerated okay.
--- NOTE | 2021-04-10 05:28 | NUR ---
Doctor austin for restraint renewal. PAGER ID: [phone] MESSAGE: Re: Paula RodriguezF rm [id number]. Here for hepatic encephalopathy. Rhino rocket placed in nares. Pt pulling at lines, acutely confused, and does not follow directs. May we have an order for restraints? Kiki [phone]. Addendum: 04/10/21 at 0539 by Get Simeon RN Restraints reordered per Dr. Dutta
--- NOTE | 2021-04-10 05:42 | NUR ---
Restraint order renewed
[2021-04-10 06:00] VITALS: BP 122/72
--- NOTE | 2021-04-10 06:32 | NUR ---
Problems reprioritized. Patient report given, questions answered & plan of care reviewed with Cole MEJIA.
--- NOTE | 2021-04-10 06:58 | NUR ---
On first assessment, Pt is found restless in bed, agitated and confused. Pt has been confused since admit and currently has soft wrist restraints applied, per protocol. In report, this RN was told that Pt had pulled NG tube and had profuse bleeding. At this time, NOC RN notified ED MD who came to assess Pt and inserted Rhino-rocket to stop epistaxis. Pt resting in bed stable but still confused and possible threat to self harm.
[2021-04-10] MEDS: pantoprazole 40mg Tablet.DR PO SCH (07:30)
[2021-04-10] MEDS: K and/or MAG REPLACEMENT MC SCH (08:00)
[2021-04-10] MEDS: thiamine 100mg tablet NG SCH (08:00)
[2021-04-10] MEDS: mineral oil/petrolatum, white cream 113gm jar TP SCH ×2 (08:00→20:00)
[2021-04-10] MEDS: docusate sodium 100mg/10ml UD cup NG SCH ×2 (08:00→20:00)
[2021-04-10] MEDS: MULTIVIT-MIN/FERROUS GLUCONATE 9 MG/15 ML LIQUID NG SCH (10:10)
[2021-04-10] MEDS: lactulose 20gm/30ml cup NG SCH ×2 (10:10→20:00)
[2021-04-10] MEDS: aspirin 81mg tab.chew NG SCH (10:12)
[2021-04-10] MEDS: lactobacillus rhamnosus 10,000 MMU CELLS/CAPSULE PO SCH ×2 (10:12→20:00)
[2021-04-10] MEDS: PARoxetine 20mg tablet NG SCH (10:12)
[2021-04-10] MEDS: cholecalciferol (vitamin D3) 1,000 unit (25mcg) tablet NG SCH (10:12)
[2021-04-10] MEDS: cetirizine 10mg tablet NG SCH (10:12)
[2021-04-10] MEDS: folic acid 1mg tablet NG SCH (10:12)
[2021-04-10] MEDS: metoprolol succinate 25mg (24-HOUR) SR. Tablet PO SCH (10:12)
[2021-04-10] MEDS: furosemide 20 MG/2 ML vial IV SCH ×2 (10:13→20:00)
[2021-04-10] MEDS: ondansetron/PF 4mg/2ml inj IV PRN (10:24)
[2021-04-10 11:00] VITALS: BP 134/86
--- NOTE | 2021-04-10 12:25 | NUR ---
RN was notified by Oleg MALDONADO that Pt wriggled down in bed and pulled Rhino-rocket out of Nare. Upon assessment, Pt remains confused, and currently uncooperative, refusing lunch, requesting only "7Up" or "Sprite" soda. Pt was repositioned in bed, no sign of active bleeding noted. Pt appears disheveled in bed and trying to get out of restraints. Pt vital ligns stable. RN will continue to monitor.
[2021-04-10] MEDS: dextrose 5%-water 1,000 ML IV SCH ×2 (14:58→18:00)
[2021-04-10 15:00] VITALS: BP 139/77
--- NOTE | 2021-04-10 17:27 | NUR ---
PAGER ID: [phone] MESSAGE: [id number] Cole Rodriguez RN. #[phone], Pt has rectal tube for loose stool. Pt stool noted to be dark and smells like GIB. Hemoccult? CBC? BP 137/99 HR 66
[2021-04-10 18:00] VITALS: BP 117/81
[2021-04-10] MEDS ORDERED: pantoprazole 40 MG vial IV ONE (18:00)
--- NOTE | 2021-04-10 18:08 | NUR ---
Dr Mason came to see Pt. Finished Carpet Inspector and RN unable to draw H&H. Dr put orders in for Protonix IVP and gtt.
--- NOTE | 2021-04-10 19:08 | NUR ---
Patient in room U 3028. I have received report from Cole MEJIA and had the opportunity to ask questions and assume patient care. Rounded on patient. Patient currently restrained with soft wrist straps and mitts. Patient needs addressed. Provided water and bites of dinner. Patient denies needs.
--- NOTE | 2021-04-10 20:00 | NUR ---
Patient unable to follow directions and swallow Lactulose. Patient saying "No, leave me alone."
[2021-04-10] MEDS: insulin glargine (Lantus) pen - multi-dose SQ SCH (21:00)
[2021-04-10] MEDS: pantoprazole 40MG/NS 100ML BAG 100 ML IV SCH (21:47)
[2021-04-10 22:00] VITALS: BP 104/69
[2021-04-10 22:50] LABS: HEMATOCRIT 27.9 % (35.0-45.0); HEMOGLOBIN 8.8 g/dl (12.0-16.0); MEAN CORPUSCULAR HGB CONC 31.4 g/dL (33.0-36.5); MEAN CORPUSCULAR VOLUME 86.1 FL (78-98); MEAN PLATELET VOLUME 9.2 FL (7.4-10.4); PLATELET COUNT 59 X10'3 (140-440); RED BLOOD COUNT 3.24 X10'6 (4.20-5.60); RED CELL DISTRIBUTION WIDTH 19.3 % (11.5-14.5)
[2021-04-11] MEDS: dextrose 5%-water 1,000 ML IV SCH ×2 (01:43→14:01)
[2021-04-11] MEDS: pantoprazole 40MG/NS 100ML BAG 100 ML IV SCH ×5 (01:44→20:49)
[2021-04-11 02:00] VITALS: BP 135/86
[2021-04-11 03:32] LABS: OCCULT BLOOD STOOL POSITIVE (Neg)
--- NOTE | 2021-04-11 04:59 | NUR ---
Doctor paged for restraint renewal PAGER ID: [phone] MESSAGE: Re: Paula Rodriguez. Here for hepatic encephalopathy. Pt acutely confused, pulling at lines, and does not follow directions. May we have an order for restraint renewal? Kiki [phone]
--- NOTE | 2021-04-11 05:15 | NUR ---
Spoke to Dr. Dutta on the telephone, doctor renewed order for restraints.
--- NOTE | 2021-04-11 06:10 | NUR ---
Patient in room PCU 3028. I have received report from Kiki MEJIA and had the opportunity to ask questions and assume patient care.
--- NOTE | 2021-04-11 06:46 | NUR ---
Problems reprioritized. Patient report given, questions answered & plan of care reviewed with Jules RN and Damián RN. Rounded with nurses and introduced them to patient. Patient pulled up in bed. Patient denies needs. Eager to eat breakfast. Patient still in soft wrist restraints and mittens.
[2021-04-11 07:00] VITALS: BP 106/54
[2021-04-11 07:32] LABS: BASOPHILS % (AUTO) 0.2 % (0-1); EOSINOPHILS # (AUTO) 0.2 X10'3 (0-0.9); HEMATOCRIT 30.3 % (35.0-45.0); HEMOGLOBIN 9.5 g/dl (12.0-16.0); LYMPHOCYTES # (AUTO) 1.7 X10'3 (1.1-4.8); LYMPHOCYTES % (AUTO) 16.5 % (21-51); MEAN CORPUSCULAR HEMOGLOBIN 27.2 PG (27.0-31.0); MEAN CORPUSCULAR HGB CONC 31.4 g/dL (33.0-36.5); MEAN CORPUSCULAR VOLUME 86.7 FL (78-98); MONOCYTES # (AUTO) 0.8 X10'3 (0-0.9); MONOCYTES % (AUTO) 7.7 % (2-12); NEUTROPHILS # (AUTO) 7.8 X10'3 (1.8-7.7); NEUTROPHILS % (AUTO) 73.6 % (42-75); PLATELET COUNT 63 X10'3 (140-440); RED CELL DISTRIBUTION WIDTH 20.4 % (11.5-14.5); WHITE BLOOD COUNT 10.6 X10'3 (4.5-11.0)
[2021-04-11 07:45] LABS: ALANINE AMINOTRANSFERASE 122 U/L (12-78); ALBUMIN 2.8 G/DL (3.4-5.0); ALBUMIN/GLOBULIN RATIO 0.7 (1.1-1.5); ALKALINE PHOSPHATASE 70 IU/L (46-116); ANION GAP 10 (8-16); ASPARTATE AMINO TRANSFERASE 71 U/L (10-37); BILIRUBIN,TOTAL 1.4 MG/DL (0.1-1.0); BLOOD UREA NITROGEN 52 MG/DL (7-18); CALCIUM 8.3 MG/DL (8.5-10.1); CHLORIDE 104 MMOL/L (99-107); GLUCOSE 126 MG/DL (70-104); POTASSIUM 3.8 MMOL/L (3.5-5.1); SODIUM 144 MMOL/L (135-145); TOTAL CARBON DIOXIDE 29.8 MMOL/L (24-32); TOTAL PROTEIN 6.9 G/DL (6.4-8.2); eGFR 42 ML/MIN
[2021-04-11] MEDS: furosemide 20 MG/2 ML vial IV SCH ×2 (08:55→19:02)
[2021-04-11] MEDS: aspirin 81mg tab.chew NG SCH (08:55)
[2021-04-11] MEDS: MULTIVIT-MIN/FERROUS GLUCONATE 9 MG/15 ML LIQUID NG SCH (08:55)
[2021-04-11] MEDS: lactobacillus rhamnosus 10,000 MMU CELLS/CAPSULE PO SCH ×2 (08:55→19:02)
[2021-04-11] MEDS: lactulose 20gm/30ml cup NG SCH ×3 (08:55→19:12)
[2021-04-11] MEDS: thiamine 100mg tablet NG SCH (08:55)
[2021-04-11] MEDS: cholecalciferol (vitamin D3) 1,000 unit (25mcg) tablet NG SCH (08:55)
[2021-04-11] MEDS: docusate sodium 100mg/10ml UD cup NG SCH ×3 (08:55→19:11)
[2021-04-11] MEDS: mineral oil/petrolatum, white cream 113gm jar TP SCH ×2 (08:55→19:14)
[2021-04-11] MEDS: PARoxetine 20mg tablet NG SCH (08:55)
[2021-04-11] MEDS: folic acid 1mg tablet NG SCH (08:55)
[2021-04-11] MEDS: cetirizine 10mg tablet NG SCH (08:55)
[2021-04-11] MEDS: metoprolol succinate 25mg (24-HOUR) SR. Tablet PO SCH (08:55)
[2021-04-11] MEDS: pantoprazole 40mg Tablet.DR PO SCH (08:55)
[2021-04-11 09:30] LABS: ANISOCYTOSIS 3+; PLATELET ESTIMATE DECREASED
[2021-04-11 09:31] LABS: ELLIPTOCYTES FEW; HYPOCHROMASIA 1+; SCHISTOCYTES FEW
--- NOTE | 2021-04-11 10:18 | NUR ---
Spoke to MD Mason on unit regarding previous bleeding. Aspirin held. Received new orders- dc aspirin and dc protonix gtt
[2021-04-11 11:00] VITALS: BP 97/57
[2021-04-11 15:00] VITALS: BP 115/74
[2021-04-11 18:00] VITALS: BP 93/71
--- NOTE | 2021-04-11 18:00 | NUR ---
[place] documentation: I have reviewed and agree with all interventions, assessments performed and documented by Damián MEJIA.
--- NOTE | 2021-04-11 18:05 | NUR ---
Problems reprioritized. Patient report given, questions answered & plan of care reviewed with Rosalina MEJIA.
--- NOTE | 2021-04-11 18:11 | NUR ---
Patient in room PCU 3028. I have received report from Damián RN and Jules RN and had the opportunity to ask questions and assume patient care.
--- NOTE | 2021-04-11 19:12 | NUR ---
Patient declined Lactulose and Colace. Stated "it's too much"
[2021-04-11] MEDS: LORazepam 2 mg/ml vial IV PRN (20:39)
[2021-04-11] MEDS: insulin glargine (Lantus) pen - multi-dose SQ SCH (21:00)
[2021-04-11 22:00] VITALS: BP 92/60
[2021-04-12] VITALS (9 sets, daily range): BP systolic 80–123; BP diastolic 43–89
[2021-04-12] MEDS: dextrose 5%-water 1,000 ML IV SCH ×3 (00:49→21:29)
[2021-04-12] MEDS: pantoprazole 40MG/NS 100ML BAG 100 ML IV SCH ×4 (02:09→16:34)
--- NOTE | 2021-04-12 02:19 | NUR ---
Page Sent promotional table spacer PAGER ID: [phone] MESSAGE: RE: Paula Rodriguez [id number] Pt blood pressure 80/43 manual, new hematuria noted as well. Please advise. Rosalina PCU [id number] (115 character message out of a maximum of 240)
[2021-04-12] MEDS ORDERED: phytonadione inj. 5 MG in normal saline 100ml IV soln 100 ML IV ONE (02:25)
[2021-04-12] MEDS ORDERED: octreotide inj. 1,250 MCG in normal saline 250ml IV soln 243.75 ML IV SCH (02:40)
[2021-04-12 02:51] LABS: ABG BASE EXCESS 2.6 mmol/L (-2.0-2.0); ABG HCO3 26.3 mmol/L (22.0-26.0); ABG OXYGEN SATURATION 97.2 % (94-97); ABG PCO2 (T) 36.1 mmHg (32.0-45.0); ABG PO2 (T) 91.8 mmHg (75.0-100.0); ALLEN'S TEST Modified; FCOHb 0.5 % (0.0-3.9); FLOW 3 L/min; FMetHb 0.4 % (0.0-1.5); FO2Hb 96.3 % (94-97); PATIENT TEMPERATURE 36.4; TOTAL HEMOGLOBIN 10.1 G/dl (12.0-16.0)
[2021-04-12 03:19] LABS: BASOPHILS # (AUTO) 0.1 X10'3 (0-0.2); BASOPHILS % (AUTO) 0.5 % (0-1); EOSINOPHILS # (AUTO) 0.2 X10'3 (0-0.9); EOSINOPHILS % (AUTO) 2.3 % (0-6); HEMATOCRIT 28.2 % (35.0-45.0); LYMPHOCYTES # (AUTO) 1.6 X10'3 (1.1-4.8); LYMPHOCYTES % (AUTO) 16.3 % (21-51); MEAN CORPUSCULAR HEMOGLOBIN 27.4 PG (27.0-31.0); MEAN CORPUSCULAR HGB CONC 31.9 g/dL (33.0-36.5); MEAN CORPUSCULAR VOLUME 85.8 FL (78-98); MEAN PLATELET VOLUME 9.4 FL (7.4-10.4); MONOCYTES # (AUTO) 0.7 X10'3 (0-0.9); MONOCYTES % (AUTO) 7.3 % (2-12); NEUTROPHILS # (AUTO) 7.3 X10'3 (1.8-7.7); NEUTROPHILS % (AUTO) 73.6 % (42-75); PLATELET COUNT 72 X10'3 (140-440); RED BLOOD COUNT 3.28 X10'6 (4.20-5.60)
[2021-04-12 03:34] LABS: LACTIC SEPSIS 1.8 MMOL/L (0.4-2.0)
[2021-04-12 03:43] LABS: ALANINE AMINOTRANSFERASE 109 U/L (12-78); ALBUMIN 2.6 G/DL (3.4-5.0); ALBUMIN/GLOBULIN RATIO 0.7 (1.1-1.5); ALKALINE PHOSPHATASE 73 IU/L (46-116); ANION GAP 9 (8-16); ASPARTATE AMINO TRANSFERASE 64 U/L (10-37); BILIRUBIN,TOTAL 1.4 MG/DL (0.1-1.0); BLOOD UREA NITROGEN 45 MG/DL (7-18); BUN/CREATININE RATIO 35.2 (6.6-38.0); CALCIUM 7.4 MG/DL (8.5-10.1); CHLORIDE 99 MMOL/L (99-107); CREATININE 1.28 MG/DL (0.40-0.90); GLUCOSE 105 MG/DL (70-104); POTASSIUM 3.6 MMOL/L (3.5-5.1); PREALBUMIN 12.2 MG/DL (19-36); SODIUM 138 MMOL/L (135-145); TOTAL CARBON DIOXIDE 30.1 MMOL/L (24-32); TOTAL PROTEIN 6.6 G/DL (6.4-8.2); eGFR 43 ML/MIN
[2021-04-12 03:54] LABS: PARTIAL THROMBOPLASTIN TIME 29 SECONDS (22-32)
[2021-04-12 04:53] LABS: PLATELET ESTIMATE DECREASED
[2021-04-12 04:54] LABS: ANISOCYTOSIS 2+; ELLIPTOCYTES FEW
--- NOTE | 2021-04-12 06:20 | NUR ---
Problems reprioritized. Patient report given, questions answered & plan of care reviewed with ROBERTO Lane.
--- NOTE | 2021-04-12 06:26 | NUR ---
Patient in room PCU 3028. I have received report from Rosalina MEJIA and had the opportunity to ask questions and assume patient care. Patient in a position of comfort sleeping, no signs of distress. Will continue to monitor.
--- NOTE | 2021-04-12 06:28 | NUR ---
Patient in room PCU 3028. I have received report from ROBERTO Acevedo and had the opportunity to ask questions and assume patient care. Pt sleeping comfortably, no signs of distress noted.
[2021-04-12] MEDS: cholecalciferol (vitamin D3) 1,000 unit (25mcg) tablet NG SCH (08:00)
[2021-04-12] MEDS: mineral oil/petrolatum, white cream 113gm jar TP SCH ×2 (08:00→20:59)
[2021-04-12] MEDS: metoprolol succinate 25mg (24-HOUR) SR. Tablet PO SCH (08:00)
[2021-04-12] MEDS: thiamine 100mg tablet NG SCH (08:00)
[2021-04-12] MEDS: lactobacillus rhamnosus 10,000 MMU CELLS/CAPSULE PO SCH ×2 (08:00→20:00)
[2021-04-12] MEDS: furosemide 20 MG/2 ML vial IV SCH ×2 (08:00→20:56)
--- NOTE | 2021-04-12 11:43 | NUR ---
Paged Dr Mason PAGER ID: [phone] MESSAGE: Paula Mercedes [phone] Can you renew the restraint order please. FYI Ammonia 34, up from 20 @[id number] 04/12/21. Thank you Ariana Julian [phone]
[2021-04-12] MEDS: LORazepam 2 mg/ml vial IV PRN (13:05)
--- NOTE | 2021-04-12 14:38 | NUR ---
Reassessment: Per MD notes pt pulled out NG tube. Pt continues to be A/O x 1 and confused, agitated and resistive to care per physical assessment, currently in restraints. Pt s/p f/u BSS today with ST recs to continue pureed food with thin liquids and needs a feeder. Pt with insufficient PO intake, documented with 100% PO intake of one item on meals however mostly refusing meals. Pt documented to be receiving max assistance at meals. D/w dietary to trial a milkshake BIDLD. Pt may benefit from NG feedings to meet estimated nutrient needs if pt continues with poor PO intake of meals. Noted that pt receiving D5 at 100 mL/hr providing roughly 408 kcal/day. LBM 04/10. Will continue to follow closely. Recommendations: 1) Continue pureed diet with thin liquids per ST recs; assist with meals and encourage PO 2) IF PO remains below 50-65% avg meals; Continuous TF using Jevity 1.2 with goal rate of 75 mL/hr 3) Milkshake BIDLD 4) Monitor for ONS needs 5) Bowel care per rx 6) Scaled weights per rx Addendum: 04/12/21 at [address] Amended: Links added.
--- NOTE | 2021-04-12 18:23 | NUR ---
[place] Medication Administration: For this medication-pass time frame, all medication were reviewed, dispensed, administered and documented per hospital policy by ROBERTO Obrien.
--- NOTE | 2021-04-12 18:23 | NUR ---
Problems reprioritized. Patient report given, questions answered & plan of care reviewed with Mars MEJIA.
--- NOTE | 2021-04-12 18:23 | NUR ---
[place] documentation: I have reviewed and agree with all interventions, assessments performed and documented by ROBERTO Obrien.
--- NOTE | 2021-04-12 18:24 | NUR ---
Problems reprioritized. Patient report given, questions answered & plan of care reviewed with ROBERTO Cerws. Pt sleeping comfortably at change of shift, no signs of distress noted. All pt needs met at this time.
--- NOTE | 2021-04-12 18:29 | NUR ---
Patient in room PCU 3028. I have received report from kimberly harrell and had the opportunity to ask questions and assume patient care.
--- NOTE | 2021-04-12 19:13 | NUR ---
pt is currently off restraints
[2021-04-12] MEDS: lactulose 20gm/30ml cup RC SCH (20:00)
[2021-04-12] MEDS: lactulose 20gm/30ml cup PO SCH (20:57)
[2021-04-12] MEDS: docusate sodium 100mg/10ml UD cup PO SCH (20:57)
[2021-04-12] MEDS: insulin glargine (Lantus) pen - multi-dose SQ SCH (21:00)
--- NOTE | 2021-04-12 21:03 | NUR ---
pt currently off feed and not diabetic, lantus not given. pt also no eating
[2021-04-12] MEDS: oxyCODONE IR 5mg (immed. release) tablet PO PRN (22:37)
--- NOTE | 2021-04-12 23:38 | NUR ---
ghosh indicated that pt only produced about 100ml's of urine. ghosh was irrigated multiple times and tiny sediments were seen. bladder scan indicated that pt had over 300 ml's of urine in her, hence why the irrigating was done. Not much urine was coming out so ghosh catheter was replaced and david and mady Garcia.
--- NOTE | 2021-04-12 23:46 | NUR ---
attempted to notify dr pelayo 3x, beeps are only heard when number is called
--- NOTE | 2021-04-13 00:08 | NUR ---
dr lee said to d/c the dextrose 5% water and to bolus pt with 1 liter of lactated ringers. and to see if patient had any improvement in urine ouput
[2021-04-13] MEDS ORDERED: ringers solution, lacted 1,000 ML IV ONE (00:10)
[2021-04-13 02:00] VITALS: BP 107/65
[2021-04-13] MEDS: lactulose 20gm/30ml cup RC SCH ×4 (02:00→20:48)
--- NOTE | 2021-04-13 03:07 | NUR ---
notified dr pelayo about pt having abdominal discomfort. pt had been bladder scanned and it indicated 375ml and only producing 75 ml of urine after the bolus of 1000 ml of lactated ringers. brought this concern up to md and was curious if somehow it was showing the ascites. when auscultating pt did not sound wet and abdomen seemed to be a little more distended than before. dr pelayo ordered to administer lactated ringers at 150 ml/hr and to order a ct of the abdomen and pelvis without contrast
[2021-04-13] MEDS ORDERED: ringers solution, lactated 500ml IV solution IV ONE (03:15)
--- NOTE | 2021-04-13 04:12 | NUR ---
brought pt down to ct with ROBERTO carolina pt back in room. Awaiting imaging results
--- NOTE | 2021-04-13 06:08 | NUR ---
Problems reprioritized. Patient report given, questions answered & plan of care reviewed with anastasia harrell.
[2021-04-13 06:53] VITALS: BP 100/60
[2021-04-13] MEDS: furosemide 20 MG/2 ML vial IV SCH ×2 (07:25→20:48)
[2021-04-13] MEDS: lactobacillus rhamnosus 10,000 MMU CELLS/CAPSULE PO SCH ×2 (07:25→20:48)
[2021-04-13] MEDS: metoprolol succinate 25mg (24-HOUR) SR. Tablet PO SCH ×2 (07:26→07:29)
[2021-04-13] MEDS: cholecalciferol (vitamin D3) 1,000 unit (25mcg) tablet NG SCH (07:26)
[2021-04-13] MEDS: docusate sodium 100mg/10ml UD cup PO SCH ×2 (07:26→20:48)
[2021-04-13] MEDS: thiamine 100mg tablet NG SCH (07:26)
[2021-04-13] MEDS: folic acid 1mg tablet PO SCH (07:26)
[2021-04-13] MEDS: cetirizine 10mg tablet PO SCH (07:26)
[2021-04-13] MEDS: lactulose 20gm/30ml cup PO SCH ×2 (07:27→20:48)
[2021-04-13] MEDS: MULTIVIT-MIN/FERROUS GLUCONATE 9 MG/15 ML LIQUID PO SCH (07:29)
[2021-04-13] MEDS: PARoxetine 20mg tablet PO SCH (07:29)
[2021-04-13] MEDS: mineral oil/petrolatum, white cream 113gm jar TP SCH ×2 (07:37→20:49)
[2021-04-13 07:57] LABS: BASOPHILS % (AUTO) 0.3 % (0-1); EOSINOPHILS # (AUTO) 0.1 X10'3 (0-0.9); HEMOGLOBIN 9.5 g/dl (12.0-16.0); LYMPHOCYTES # (AUTO) 1.3 X10'3 (1.1-4.8); LYMPHOCYTES % (AUTO) 14.2 % (21-51); MEAN CORPUSCULAR HEMOGLOBIN 27.1 PG (27.0-31.0); MEAN CORPUSCULAR HGB CONC 31.6 g/dL (33.0-36.5); MEAN CORPUSCULAR VOLUME 85.7 FL (78-98); MEAN PLATELET VOLUME 10.4 FL (7.4-10.4); MONOCYTES # (AUTO) 0.9 X10'3 (0-0.9); MONOCYTES % (AUTO) 9.8 % (2-12); NEUTROPHILS % (AUTO) 74.7 % (42-75); PLATELET COUNT 106 X10'3 (140-440); RED CELL DISTRIBUTION WIDTH 19.3 % (11.5-14.5); WHITE BLOOD COUNT 9.4 X10'3 (4.5-11.0)
[2021-04-13 08:16] LABS: ALANINE AMINOTRANSFERASE 104 U/L (12-78); ALBUMIN 2.7 G/DL (3.4-5.0); ALBUMIN/GLOBULIN RATIO 0.7 (1.1-1.5); ALKALINE PHOSPHATASE 67 IU/L (46-116); ANION GAP 13 (8-16); ASPARTATE AMINO TRANSFERASE 56 U/L (10-37); BLOOD UREA NITROGEN 53 MG/DL (7-18); BUN/CREATININE RATIO 30.1 (6.6-38.0); CALCIUM 7.7 MG/DL (8.5-10.1); CHLORIDE 98 MMOL/L (99-107); CREATININE 1.76 MG/DL (0.40-0.90); GLUCOSE 87 MG/DL (70-104); POTASSIUM 4.2 MMOL/L (3.5-5.1); SODIUM 136 MMOL/L (135-145); TOTAL CARBON DIOXIDE 25.4 MMOL/L (24-32); TOTAL PROTEIN 6.7 G/DL (6.4-8.2); eGFR 29 ML/MIN
[2021-04-13 08:31] LABS: PLATELET ESTIMATE DECREASED
[2021-04-13 08:32] LABS: ANISOCYTOSIS 2+; BURR CELLS 1+; ELLIPTOCYTES 1+; HYPOCHROMASIA 1+; POLYCHROMASIA 1+; ROULEAUX 1+; TARGET CELLS 1+
[2021-04-13 11:38] VITALS: BP 92/54
--- NOTE | 2021-04-13 13:32 | NUR ---
Wound care POC. Arrived at bedside with ROBERTO Germain for assessment of possible pressure injury. Explained procedure to pt and pt gave informed verbal consent. Pt is alert and reports no pain at this time. Right foot cold to the touch with significant maroon discoloration to the toes, scattered small areas of stable eschar present on foot and quinones. Pedal pulse weak. Heel with reddened discoloration, irregular and splotchy. Noted to be a vascular etiology and not pressure. Left foot warm with similar discoloration as the right foot. Heel with the same splotchy reddened areas noted to also be a vascular etiology. Reviewed with Marcellus wound care nurse for education and encouraged nursing to continue to float the heels as the patient is highly susceptible to pressure injury due to the noted perfusion insufficiency. Addendum: 04/13/21 at 1358 by Keyana Lal RN Amended: Links added.
--- NOTE | 2021-04-13 15:19 | NUR ---
PAGER ID: [phone] MESSAGE: PATIENT DC JACKSON IN ROOM 3028-A PATIENT HAS A VERY BAD SWELLING IN THE LEFT ARM CAN WE GET A DOPPLER OF THE LEFT ARM.
[2021-04-13 16:19] VITALS: BP 108/76
[2021-04-13] MEDS: oxyCODONE IR 5mg (immed. release) tablet PO PRN (17:22)
[2021-04-13 18:00] VITALS: BP 112/75
[2021-04-13] MEDS: insulin glargine (Lantus) pen - multi-dose SQ SCH (21:00)
[2021-04-13 22:00] VITALS: BP 102/61
[2021-04-14 02:00] VITALS: BP 99/70
[2021-04-14] MEDS: lactulose 20gm/30ml cup RC SCH (02:44)
[2021-04-14 04:50] LABS: BASOPHILS # (AUTO) 0.1 X10'3 (0-0.2); BASOPHILS % (AUTO) 0.7 % (0-1); EOSINOPHILS # (AUTO) 0.3 X10'3 (0-0.9); EOSINOPHILS % (AUTO) 2.5 % (0-6); HEMOGLOBIN 8.9 g/dl (12.0-16.0); LYMPHOCYTES # (AUTO) 1.5 X10'3 (1.1-4.8); LYMPHOCYTES % (AUTO) 14.2 % (21-51); MEAN CORPUSCULAR HEMOGLOBIN 27.3 PG (27.0-31.0); MEAN CORPUSCULAR HGB CONC 31.7 g/dL (33.0-36.5); MEAN PLATELET VOLUME 10.9 FL (7.4-10.4); MONOCYTES # (AUTO) 1.2 X10'3 (0-0.9); MONOCYTES % (AUTO) 10.7 % (2-12); NEUTROPHILS # (AUTO) 7.8 X10'3 (1.8-7.7); NEUTROPHILS % (AUTO) 71.9 % (42-75); PLATELET COUNT 144 X10'3 (140-440); RED BLOOD COUNT 3.25 X10'6 (4.20-5.60); RED CELL DISTRIBUTION WIDTH 19.5 % (11.5-14.5); WHITE BLOOD COUNT 10.9 X10'3 (4.5-11.0)
--- NOTE | 2021-04-14 06:26 | NUR ---
Patient in room PCU 3028. I have received report from ROBERTO Coffey and had the opportunity to ask questions and assume patient care.
[2021-04-14] MEDS: ondansetron/PF 4mg/2ml inj IV PRN ×2 (06:43→14:48)
[2021-04-14 06:50] LABS: ALANINE AMINOTRANSFERASE 84 U/L (12-78); ALBUMIN 2.7 G/DL (3.4-5.0); ALBUMIN/GLOBULIN RATIO 0.7 (1.1-1.5); ALKALINE PHOSPHATASE 67 IU/L (46-116); ANION GAP 10 (8-16); ASPARTATE AMINO TRANSFERASE 45 U/L (10-37); BILIRUBIN,TOTAL 1.7 MG/DL (0.1-1.0); BLOOD UREA NITROGEN 59 MG/DL (7-18); BUN/CREATININE RATIO 28.2 (6.6-38.0); CALCIUM 7.5 MG/DL (8.5-10.1); CHLORIDE 99 MMOL/L (99-107); CREATININE 2.09 MG/DL (0.40-0.90); GLUCOSE 93 MG/DL (70-104); POTASSIUM 3.5 MMOL/L (3.5-5.1); SODIUM 136 MMOL/L (135-145); TOTAL PROTEIN 6.7 G/DL (6.4-8.2); eGFR 24 ML/MIN
[2021-04-14 07:00] VITALS: BP 115/67
--- NOTE | 2021-04-14 07:24 | NUR ---
Paged Dr Ahn: PAGER ID: [phone] MESSAGE: Paige Rodriguez [id number] pt has 2 lactulose orders overlapping. 1: 20gm BID, 2: 30 gm Q6H. Would you like to modify or continue this schedule? Evette [phone]
[2021-04-14] MEDS: thiamine 100mg tablet NG SCH (08:00)
[2021-04-14] MEDS: cholecalciferol (vitamin D3) 1,000 unit (25mcg) tablet NG SCH (08:00)
[2021-04-14] MEDS: folic acid 1mg tablet PO SCH (08:00)
[2021-04-14] MEDS: mineral oil/petrolatum, white cream 113gm jar TP SCH ×2 (08:00→19:37)
[2021-04-14] MEDS: cetirizine 10mg tablet PO SCH (08:00)
[2021-04-14] MEDS: MULTIVIT-MIN/FERROUS GLUCONATE 9 MG/15 ML LIQUID PO SCH (08:44)
[2021-04-14] MEDS: docusate sodium 100mg/10ml UD cup PO SCH (08:44)
[2021-04-14] MEDS: lactulose 20gm/30ml cup PO SCH ×2 (08:45→19:36)
[2021-04-14] MEDS: metoprolol succinate 25mg (24-HOUR) SR. Tablet PO SCH (08:47)
[2021-04-14] MEDS: lactobacillus rhamnosus 10,000 MMU CELLS/CAPSULE PO SCH ×2 (08:47→19:37)
[2021-04-14] MEDS: PARoxetine 20mg tablet PO SCH (08:47)
[2021-04-14] MEDS: furosemide 20 MG/2 ML vial IV SCH ×3 (08:53→22:14)
[2021-04-14] MEDS: LORazepam 2 mg/ml vial IV PRN (08:53)
[2021-04-14 11:00] VITALS: BP 108/66
[2021-04-14 15:00] VITALS: BP 95/59
--- NOTE | 2021-04-14 16:28 | NUR ---
PAGER ID: [phone] MESSAGE: [id number] [facility] LUE= SUPERFICIAL THOMBUS IN THE L CEPH VEIN IN BICEP. RENAE TURNER
[2021-04-14 18:00] VITALS: BP 92/60
[2021-04-14] MEDS: POTASSIUM BICARB 20meq eff tab 20 MEQ TABLET.EFF NG PRN (19:36)
[2021-04-14] MEDS: Melatonin 3mg tablet PO PRN (19:37)
[2021-04-14] MEDS: insulin glargine (Lantus) pen - multi-dose SQ SCH (21:00)
[2021-04-14 22:00] VITALS: BP 102/56
[2021-04-15 02:00] VITALS: BP 112/75
[2021-04-15] MEDS: oxyCODONE IR 5mg (immed. release) tablet PO PRN (03:48)
--- NOTE | 2021-04-15 06:29 | NUR ---
Patient in room U 3028. I have received report from Erlinda MEJIA and had the opportunity to ask questions and assume patient care.. Patient is sleeping in bed and is in no acute distress.
[2021-04-15 06:35] LABS: BASOPHILS # (AUTO) 0.1 X10'3 (0-0.2); BASOPHILS % (AUTO) 0.7 % (0-1); EOSINOPHILS # (AUTO) 0.2 X10'3 (0-0.9); HEMATOCRIT 28.1 % (35.0-45.0); HEMOGLOBIN 8.9 g/dl (12.0-16.0); LYMPHOCYTES # (AUTO) 1.2 X10'3 (1.1-4.8); LYMPHOCYTES % (AUTO) 12.5 % (21-51); MEAN CORPUSCULAR HEMOGLOBIN 27.5 PG (27.0-31.0); MEAN CORPUSCULAR HGB CONC 31.8 g/dL (33.0-36.5); MEAN CORPUSCULAR VOLUME 86.6 FL (78-98); MEAN PLATELET VOLUME 10.5 FL (7.4-10.4); MONOCYTES # (AUTO) 1.2 X10'3 (0-0.9); MONOCYTES % (AUTO) 12.9 % (2-12); NEUTROPHILS % (AUTO) 71.9 % (42-75); PLATELET COUNT 154 X10'3 (140-440); RED BLOOD COUNT 3.24 X10'6 (4.20-5.60); RED CELL DISTRIBUTION WIDTH 19.8 % (11.5-14.5); WHITE BLOOD COUNT 9.7 X10'3 (4.5-11.0)
[2021-04-15 07:00] VITALS: BP 109/66
[2021-04-15 07:08] LABS: ALANINE AMINOTRANSFERASE 81 U/L (12-78); ALBUMIN 2.8 G/DL (3.4-5.0); ALBUMIN/GLOBULIN RATIO 0.7 (1.1-1.5); ALKALINE PHOSPHATASE 70 IU/L (46-116); ANION GAP 11 (8-16); ASPARTATE AMINO TRANSFERASE 41 U/L (10-37); BILIRUBIN,TOTAL 1.7 MG/DL (0.1-1.0); BLOOD UREA NITROGEN 60 MG/DL (7-18); BUN/CREATININE RATIO 28.2 (6.6-38.0); CALCIUM 7.9 MG/DL (8.5-10.1); CHLORIDE 101 MMOL/L (99-107); CREATININE 2.13 MG/DL (0.40-0.90); GLUCOSE 98 MG/DL (70-104); POTASSIUM 3.4 MMOL/L (3.5-5.1); SODIUM 140 MMOL/L (135-145); TOTAL CARBON DIOXIDE 28.3 MMOL/L (24-32); TOTAL PROTEIN 6.9 G/DL (6.4-8.2); eGFR 24 ML/MIN
[2021-04-15 07:36] LABS: ANISOCYTOSIS 2+; HYPOCHROMASIA 1+; LARGE PLATELETS FEW; PLATELET ESTIMATE NORMAL; POLYCHROMASIA 1+
[2021-04-15 07:37] LABS: ELLIPTOCYTES FEW; ROULEAUX 1+; TARGET CELLS FEW
[2021-04-15] MEDS: cholecalciferol (vitamin D3) 1,000 unit (25mcg) tablet NG SCH (08:49)
[2021-04-15] MEDS: metoprolol succinate 25mg (24-HOUR) SR. Tablet PO SCH (08:49)
[2021-04-15] MEDS: folic acid 1mg tablet PO SCH (08:50)
[2021-04-15] MEDS: thiamine 100mg tablet NG SCH (08:50)
[2021-04-15] MEDS: lactobacillus rhamnosus 10,000 MMU CELLS/CAPSULE PO SCH ×2 (08:50→21:10)
[2021-04-15] MEDS: cetirizine 10mg tablet PO SCH (08:50)
[2021-04-15] MEDS: furosemide 20 MG/2 ML vial IV SCH (08:50)
[2021-04-15] MEDS: PARoxetine 20mg tablet PO SCH (08:50)
[2021-04-15] MEDS: mineral oil/petrolatum, white cream 113gm jar TP SCH ×2 (08:51→20:00)
[2021-04-15] MEDS: lactulose 20gm/30ml cup PO SCH ×2 (08:51→21:10)
[2021-04-15] MEDS: MULTIVIT-MIN/FERROUS GLUCONATE 9 MG/15 ML LIQUID PO SCH (08:51)
[2021-04-15] MEDS: POTASSIUM BICARB 20meq eff tab 20 MEQ TABLET.EFF NG PRN ×3 (08:52→21:10)
[2021-04-15 11:00] VITALS: BP 113/75
--- NOTE | 2021-04-15 14:47 | NUR ---
F/u 04/15: Pt PO continues to fluctuate w/ ALOC refusing half of meals past 6 days; when does eat PO ~50-75% avg meals. Noted pt slowly improving per MD note, AOx2 now per EMR, and ate 4 out of past 6 meals which is improving. Dextrose has been stopped; receiving shakes BIDLD for additional kcals. Rectal tube in place -300ml output continues to receive routine lactulose BID. Receiving electrolyte replacement per protocol. IF PO acceptance continues to improve may benefit from ONS to optimize protein/kcal intake. IF PO regresses then may benefit from supplemental NG feeds to optimize nutrition status while in restraints w/ sitter/feeder. Given inadequate PO meals past 5 days, severe weakness, and BLE 2+ edema pt meets minimum severe malnutrition criteria; MD notified. Will continue to monitor. Recommendations: 1) Continue pureed diet with thin liquids per ST recs; assist with meals and encourage PO 2) IF PO remains below 50-65% avg meals; Continuous TF using Jevity 1.2 with goal rate of 75 mL/hr via NG 3) Milkshake BIDLD 4) Monitor for ONS needs 5) Lactulose BID per MD 6) Weekly wts Addendum: 04/15/21 at [address] Amended: Links added.
[2021-04-15 15:00] VITALS: BP 107/62
[2021-04-15] MEDS: LORazepam 1 MG tablet PO PRN (16:18)
--- NOTE | 2021-04-15 17:07 | NUR ---
Page Sent promotional table spacer PAGER ID: [phone] MESSAGE: [phone] [place]. Patient c/o pain in feet. She is allergic to acetaminophen so I didn't put in the order for Tylenol for pain. She is also allergic to Spiro, morphine ,and tramadol. Is there anything else I can give her? Karla [phone]
[2021-04-15 18:00] VITALS: BP 120/85
--- NOTE | 2021-04-15 18:25 | NUR ---
Problems reprioritized. Patient report given, questions answered & plan of care reviewed with Kevin RN . Patient resting in bed in no acute distress.
[2021-04-15] MEDS: insulin glargine (Lantus) pen - multi-dose SQ SCH (21:00)
[2021-04-15] MEDS: celeCOXIB 100mg capsule PO PRN (21:25)
[2021-04-15 22:00] VITALS: BP 105/70
[2021-04-16] VITALS (9 sets, daily range): BP systolic 88–127; BP diastolic 53–71
--- NOTE | 2021-04-16 00:45 | NUR ---
PT RESTING COMFORTABLY IN BED WITH CALL LIGHT WITHIN REACH AND BED LOCKED IN LOWEST POSITION. PT CLEANED Q1 HOUR AND REPOSITIONED Q30 MIN. PT IN NO SIGNS OF DISTRESS AT THIS TIME.
[2021-04-16] MEDS ORDERED: furosemide 20MG tablet PO SCH (08:00)
[2021-04-16 09:08] LABS: BASOPHILS # (AUTO) 0.1 X10'3 (0-0.2); BASOPHILS % (AUTO) 0.7 % (0-1); EOSINOPHILS # (AUTO) 0.1 X10'3 (0-0.9); HEMATOCRIT 28.9 % (35.0-45.0); HEMOGLOBIN 9.2 g/dl (12.0-16.0); LYMPHOCYTES # (AUTO) 1.1 X10'3 (1.1-4.8); LYMPHOCYTES % (AUTO) 12.9 % (21-51); MEAN CORPUSCULAR HEMOGLOBIN 27.9 PG (27.0-31.0); MEAN CORPUSCULAR HGB CONC 31.7 g/dL (33.0-36.5); MONOCYTES # (AUTO) 1.3 X10'3 (0-0.9); NEUTROPHILS % (AUTO) 70.4 % (42-75); PLATELET COUNT 171 X10'3 (140-440); RED BLOOD COUNT 3.28 X10'6 (4.20-5.60); RED CELL DISTRIBUTION WIDTH 19.9 % (11.5-14.5); WHITE BLOOD COUNT 8.6 X10'3 (4.5-11.0)
[2021-04-16 09:21] LABS: ALANINE AMINOTRANSFERASE 66 U/L (12-78); ALBUMIN 2.8 G/DL (3.4-5.0); ALBUMIN/GLOBULIN RATIO 0.7 (1.1-1.5); ALKALINE PHOSPHATASE 69 IU/L (46-116); ANION GAP 12 (8-16); ASPARTATE AMINO TRANSFERASE 36 U/L (10-37); BLOOD UREA NITROGEN 64 MG/DL (7-18); BUN/CREATININE RATIO 28.4 (6.6-38.0); CHLORIDE 100 MMOL/L (99-107); CREATININE 2.25 MG/DL (0.40-0.90); GLUCOSE 96 MG/DL (70-104); POTASSIUM 4.6 MMOL/L (3.5-5.1); SODIUM 140 MMOL/L (135-145); TOTAL PROTEIN 6.9 G/DL (6.4-8.2); eGFR 22 ML/MIN
[2021-04-16] MEDS: cholecalciferol (vitamin D3) 1,000 unit (25mcg) tablet NG SCH (09:29)
[2021-04-16] MEDS: PARoxetine 20mg tablet PO SCH (09:29)
[2021-04-16] MEDS: folic acid 1mg tablet PO SCH (09:29)
[2021-04-16] MEDS: metoprolol succinate 25mg (24-HOUR) SR. Tablet PO SCH (09:30)
[2021-04-16] MEDS: lactobacillus rhamnosus 10,000 MMU CELLS/CAPSULE PO SCH ×3 (09:30→20:17)
[2021-04-16] MEDS: thiamine 100mg tablet NG SCH (09:30)
[2021-04-16] MEDS: MULTIVIT-MIN/FERROUS GLUCONATE 9 MG/15 ML LIQUID PO SCH (09:30)
[2021-04-16] MEDS: cetirizine 10mg tablet PO SCH (09:30)
[2021-04-16] MEDS: mineral oil/petrolatum, white cream 113gm jar TP SCH ×2 (09:31→20:17)
[2021-04-16] MEDS: lactulose 20gm/30ml cup PO SCH ×3 (09:31→20:16)
[2021-04-16] MEDS: LORazepam 2 mg/ml vial IV PRN (09:38)
[2021-04-16] MEDS: normal saline 1000ml 1,000 ML IV SCH ×2 (10:40→20:11)
[2021-04-16 12:20] LABS: ANISOCYTOSIS 2+; HYPOCHROMASIA 1+; PLATELET ESTIMATE NORMAL
[2021-04-16 12:21] LABS: ELLIPTOCYTES 1+; POLYCHROMASIA FEW; SCHISTOCYTES FEW
[2021-04-16 12:22] LABS: BURR CELLS FEW]
[2021-04-16 12:23] LABS: LARGE PLATELETS FEW
--- NOTE | 2021-04-16 18:08 | NUR ---
Problems reprioritized. Patient report given, questions answered & plan of care reviewed with Ammon MEJIA. RT unable to draw ABG and will try again tonight. Patient resting in bed in no acute distress.
[2021-04-16] MEDS: rifaximin 550mg tablet PO SCH ×2 (20:00→20:17)
[2021-04-16 20:23] LABS: ABG BASE EXCESS -1.8 mmol/L (-2.0-2.0); ABG OXYGEN SATURATION 98.7 % (94-97); ABG PCO2 (T) 39.4 mmHg (32.0-45.0); ABG PO2 (T) 136.4 mmHg (75.0-100.0); ALLEN'S TEST Modified; FCOHb 0.2 % (0.0-3.9); FLOW 4 L/min; FMetHb 0.4 % (0.0-1.5); FO2Hb 98.1 % (94-97); PATIENT TEMPERATURE 37.1; TOTAL HEMOGLOBIN 9.6 G/dl (12.0-16.0)
[2021-04-16] MEDS: insulin glargine (Lantus) pen - multi-dose SQ SCH (21:00)
--- NOTE | 2021-04-17 01:15 | NUR ---
WILL PASS ON TO DAYSHIFT RN TO GET INTER-DRY FROM MATERIALS OR WOUND CARE. NONE AVAILABLE NOW
[2021-04-17 02:00] VITALS: BP 119/66
[2021-04-17 06:00] VITALS: BP 104/78
[2021-04-17 06:03] LABS: BASOPHILS % (AUTO) 0.3 % (0-1); EOSINOPHILS % (AUTO) 0.3 % (0-6); HEMATOCRIT 28.5 % (35.0-45.0); HEMOGLOBIN 9.1 g/dl (12.0-16.0); LYMPHOCYTES # (AUTO) 0.6 X10'3 (1.1-4.8); LYMPHOCYTES % (AUTO) 7.1 % (21-51); MEAN CORPUSCULAR HEMOGLOBIN 27.8 PG (27.0-31.0); MEAN CORPUSCULAR HGB CONC 31.8 g/dL (33.0-36.5); MEAN CORPUSCULAR VOLUME 87.2 FL (78-98); MEAN PLATELET VOLUME 9.8 FL (7.4-10.4); MONOCYTES # (AUTO) 0.8 X10'3 (0-0.9); MONOCYTES % (AUTO) 8.5 % (2-12); NEUTROPHILS # (AUTO) 7.6 X10'3 (1.8-7.7); NEUTROPHILS % (AUTO) 83.8 % (42-75); PLATELET COUNT 178 X10'3 (140-440); RED BLOOD COUNT 3.27 X10'6 (4.20-5.60); RED CELL DISTRIBUTION WIDTH 19.7 % (11.5-14.5)
[2021-04-17] MEDS: normal saline 1000ml 1,000 ML IV SCH (06:15)
--- NOTE | 2021-04-17 06:34 | NUR ---
Patient in room PCU 3028. I have received report from ROBERTO Verde and had the opportunity to ask questions and assume patient care.
--- NOTE | 2021-04-17 06:36 | NUR ---
Patient in room PCU 3028. I have received report from Ammon MEJIA and had the opportunity to ask questions and assume patient care. Patient in no distress in a position of comfort, sitter at bedside, whiteboard updated.
--- NOTE | 2021-04-17 06:37 | NUR ---
Problems reprioritized. Patient report given, questions answered & plan of care reviewed with ANASTASIYA MEJIA. Addendum: 04/17/21 at 0638 by Corona Fournier RN Amended: Links added.
[2021-04-17 07:21] LABS: ALANINE AMINOTRANSFERASE 70 U/L (12-78); ALBUMIN 2.7 G/DL (3.4-5.0); ALBUMIN/GLOBULIN RATIO 0.7 (1.1-1.5); ALKALINE PHOSPHATASE 65 IU/L (46-116); ANION GAP 16 (8-16); ASPARTATE AMINO TRANSFERASE 33 U/L (10-37); BILIRUBIN,TOTAL 2.4 MG/DL (0.1-1.0); BLOOD UREA NITROGEN 69 MG/DL (7-18); BUN/CREATININE RATIO 25.8 (6.6-38.0); CALCIUM 7.8 MG/DL (8.5-10.1); CHLORIDE 103 MMOL/L (99-107); CREATININE 2.67 MG/DL (0.40-0.90); GLUCOSE 82 MG/DL (70-104); POTASSIUM 4.6 MMOL/L (3.5-5.1); SODIUM 140 MMOL/L (135-145); TOTAL CARBON DIOXIDE 21.2 MMOL/L (24-32); TOTAL PROTEIN 6.6 G/DL (6.4-8.2); eGFR 18 ML/MIN
[2021-04-17] MEDS: mineral oil/petrolatum, white cream 113gm jar TP SCH ×2 (08:00→19:02)
[2021-04-17] MEDS: lactobacillus rhamnosus 10,000 MMU CELLS/CAPSULE PO SCH ×2 (08:00→18:59)
[2021-04-17] MEDS: PARoxetine 20mg tablet PO SCH (08:00)
[2021-04-17] MEDS: cetirizine 10mg tablet PO SCH (08:00)
[2021-04-17] MEDS: cholecalciferol (vitamin D3) 1,000 unit (25mcg) tablet NG SCH (08:00)
[2021-04-17] MEDS: folic acid 1mg tablet PO SCH (08:00)
[2021-04-17] MEDS: lactulose 20gm/30ml cup PO SCH ×2 (08:00→18:59)
[2021-04-17] MEDS: thiamine 100mg tablet NG SCH (08:00)
[2021-04-17] MEDS: rifaximin 550mg tablet PO SCH ×2 (08:00→18:59)
[2021-04-17] MEDS: MULTIVIT-MIN/FERROUS GLUCONATE 9 MG/15 ML LIQUID PO SCH (08:00)
[2021-04-17] MEDS: furosemide 40mg/4ml inj IV SCH ×2 (08:40→18:59)
[2021-04-17 10:51] LABS: CLARITY,URINE CLOUDY (Clear); COLOR,URINE YELLOW (Yellow); GLUCOSE, URINE NEGATIVE (Neg); KETONES,URINE NEGATIVE (Neg); LEUKOCYTE ESTERASE ,URINE TRACE (Neg); NITRITES, URINE NEGATIVE (Neg); OCCULT BLOOD,URINE SMALL (Neg); PH,URINE 5.5 (4.8-8.0); PROTEIN,URINE 100 mg/dl (Neg)
[2021-04-17 10:58] LABS: HYALINE CASTS >30 /LPF (NEGATIVE); UA COLLECTION TYPE FOLEY CATH
[2021-04-17 10:59] LABS: BACTERIA,URINE 2+ /HPF (Neg); SQUAMOUS EPITHELIAL CELL,UR FEW /LPF (FEW); WBC CLUMPS,URINE MODERATE /HPF (NEGATIVE)
[2021-04-17 11:00] VITALS: BP 110/56
[2021-04-17 11:00] LABS: MUCUS STRANDS FEW /LPF (Neg); TRANSITIONAL EPI CELLS,URINE FEW /HPF
[2021-04-17 15:00] VITALS: BP 102/67
--- NOTE | 2021-04-17 18:05 | NUR ---
Problems reprioritized. Patient report given, questions answered & plan of care reviewed with Jarrod MEJIA.
--- NOTE | 2021-04-17 18:08 | NUR ---
[place] documentation: I have reviewed and agree with all interventions, assessments performed and documented by ROBERTO Obrien.
--- NOTE | 2021-04-17 18:08 | NUR ---
[place] Medication Administration: For this medication-pass time frame, all medication were reviewed, dispensed, administered and documented per hospital policy by ROBERTO Obrien.
--- NOTE | 2021-04-17 18:17 | NUR ---
Problems reprioritized. Patient report given, questions answered & plan of care reviewed with ROBERTO Garay. Pt sleeping comfortably at change of shift. No signs of distress noted.
[2021-04-17] MEDS: Melatonin 3mg tablet PO PRN (18:59)
[2021-04-17 19:00] VITALS: BP 100/55
[2021-04-17] MEDS: apixaban 5mg tablet PO SCH (19:01)
[2021-04-17] MEDS: insulin glargine (Lantus) pen - multi-dose SQ SCH (21:00)
[2021-04-18] MEDS: LORazepam 2 mg/ml vial IV PRN ×2 (02:59→10:07)
[2021-04-18 06:36] LABS: BASOPHILS # (AUTO) 0.1 X10'3 (0-0.2); BASOPHILS % (AUTO) 0.6 % (0-1); EOSINOPHILS # (AUTO) 0.1 X10'3 (0-0.9); EOSINOPHILS % (AUTO) 0.8 % (0-6); HEMATOCRIT 30.4 % (35.0-45.0); HEMOGLOBIN 9.6 g/dl (12.0-16.0); LYMPHOCYTES # (AUTO) 0.9 X10'3 (1.1-4.8); LYMPHOCYTES % (AUTO) 9.1 % (21-51); MEAN CORPUSCULAR HEMOGLOBIN 27.5 PG (27.0-31.0); MEAN CORPUSCULAR HGB CONC 31.6 g/dL (33.0-36.5); MEAN PLATELET VOLUME 9.4 FL (7.4-10.4); MONOCYTES # (AUTO) 1.1 X10'3 (0-0.9); MONOCYTES % (AUTO) 10.9 % (2-12); NEUTROPHILS # (AUTO) 7.8 X10'3 (1.8-7.7); NEUTROPHILS % (AUTO) 78.6 % (42-75); PLATELET COUNT 199 X10'3 (140-440); RED CELL DISTRIBUTION WIDTH 21.3 % (11.5-14.5); WHITE BLOOD COUNT 9.9 X10'3 (4.5-11.0)
[2021-04-18 06:50] LABS: ALANINE AMINOTRANSFERASE 78 U/L (12-78); ALBUMIN/GLOBULIN RATIO 0.7 (1.1-1.5); ALKALINE PHOSPHATASE 75 IU/L (46-116); ANION GAP 17 (8-16); ASPARTATE AMINO TRANSFERASE 45 U/L (10-37); BLOOD UREA NITROGEN 71 MG/DL (7-18); BUN/CREATININE RATIO 23.7 (6.6-38.0); CHLORIDE 103 MMOL/L (99-107); CREATININE 2.99 MG/DL (0.40-0.90); GLUCOSE 125 MG/DL (70-104); POTASSIUM 4.3 MMOL/L (3.5-5.1); SODIUM 142 MMOL/L (135-145); TOTAL CARBON DIOXIDE 22.5 MMOL/L (24-32); TOTAL PROTEIN 7.4 G/DL (6.4-8.2); eGFR 16 ML/MIN
[2021-04-18 07:00] VITALS: BP 96/58
[2021-04-18] MEDS: PARoxetine 20mg tablet PO SCH (07:53)
[2021-04-18] MEDS: thiamine 100mg tablet NG SCH (07:53)
[2021-04-18] MEDS: rifaximin 550mg tablet PO SCH ×2 (07:53→20:24)
[2021-04-18] MEDS: cholecalciferol (vitamin D3) 1,000 unit (25mcg) tablet NG SCH (07:54)
[2021-04-18] MEDS: apixaban 5mg tablet PO SCH ×2 (07:54→20:24)
[2021-04-18] MEDS: lactobacillus rhamnosus 10,000 MMU CELLS/CAPSULE PO SCH ×2 (07:54→20:24)
[2021-04-18] MEDS: lactulose 20gm/30ml cup PO SCH ×3 (07:54→20:25)
[2021-04-18] MEDS: folic acid 1mg tablet PO SCH (07:54)
[2021-04-18] MEDS: cetirizine 10mg tablet PO SCH (07:54)
[2021-04-18] MEDS: albumin (human) 25% 100ml IV 100 ML IV SCH ×2 (07:55→20:28)
[2021-04-18] MEDS: mineral oil/petrolatum, white cream 113gm jar TP SCH ×2 (07:56→20:25)
[2021-04-18] MEDS: MULTIVIT-MIN/FERROUS GLUCONATE 9 MG/15 ML LIQUID PO SCH ×2 (07:56→08:00)
[2021-04-18 09:59] LABS: ANISOCYTOSIS 3+; PLATELET ESTIMATE NORMAL
[2021-04-18 10:00] LABS: BURR CELLS FEW; ELLIPTOCYTES 1+; POLYCHROMASIA FEW; SCHISTOCYTES FEW
[2021-04-18 10:01] LABS: HYPOCHROMASIA 1+
[2021-04-18 11:00] VITALS: BP 104/56
[2021-04-18 15:00] VITALS: BP 114/78
--- NOTE | 2021-04-18 15:12 | NUR ---
F/u 04/18: Pt advanced to MM5/thin diet per DESKTOP ANALYST recs though continues refusing meals today and overall PO mostly 0% vs refusal w/ one time 25% past 4 days. PO remains poor since corpak removal not meeting needs. PATITO paged regarding corpak needs for supplemental nutrition at this time as likely only way to meet nutrition needs. LBM 04/16. Will continue to monitor for nutrition support needs and PO acceptance. Recommendations: 1) Continue MM5/thin liquids per ST recs; assist with meals and encourage PO 2) IF PO remains below 50-65% avg meals; Continuous TF using Jevity 1.2 with goal rate of 75 mL/hr via NG 3) Milkshake BIDLD 4) Lactulose BID per MD 5) Weekly wts Addendum: 04/18/21 at [address] Amended: Links added.
[2021-04-18 18:00] VITALS: BP 103/89
[2021-04-18] MEDS: Melatonin 3mg tablet PO PRN (20:24)
[2021-04-18] MEDS: LORazepam 1 MG tablet PO PRN (20:24)
[2021-04-18] MEDS: insulin glargine (Lantus) pen - multi-dose SQ SCH (20:30)
[2021-04-19 06:00] VITALS: BP 117/75
[2021-04-19 06:16] LABS: BASOPHILS # (AUTO) 0.1 X10'3 (0-0.2); BASOPHILS % (AUTO) 0.8 % (0-1); EOSINOPHILS # (AUTO) 0.1 X10'3 (0-0.9); EOSINOPHILS % (AUTO) 1.4 % (0-6); HEMATOCRIT 25.5 % (35.0-45.0); HEMOGLOBIN 8.1 g/dl (12.0-16.0); LYMPHOCYTES # (AUTO) 0.9 X10'3 (1.1-4.8); MEAN CORPUSCULAR HEMOGLOBIN 27.8 PG (27.0-31.0); MEAN CORPUSCULAR HGB CONC 31.8 g/dL (33.0-36.5); MEAN CORPUSCULAR VOLUME 87.4 FL (78-98); MEAN PLATELET VOLUME 8.9 FL (7.4-10.4); MONOCYTES # (AUTO) 0.7 X10'3 (0-0.9); MONOCYTES % (AUTO) 9.6 % (2-12); NEUTROPHILS # (AUTO) 5.2 X10'3 (1.8-7.7); NEUTROPHILS % (AUTO) 75.2 % (42-75); PLATELET COUNT 117 X10'3 (140-440); RED BLOOD COUNT 2.91 X10'6 (4.20-5.60); RED CELL DISTRIBUTION WIDTH 20.7 % (11.5-14.5); WHITE BLOOD COUNT 6.9 X10'3 (4.5-11.0)
[2021-04-19 06:38] LABS: ALANINE AMINOTRANSFERASE 55 U/L (12-78); ALBUMIN 3.4 G/DL (3.4-5.0); ALKALINE PHOSPHATASE 60 IU/L (46-116); ANION GAP 12 (8-16); ASPARTATE AMINO TRANSFERASE 35 U/L (10-37); BILIRUBIN,TOTAL 2.3 MG/DL (0.1-1.0); BLOOD UREA NITROGEN 71 MG/DL (7-18); BUN/CREATININE RATIO 27.3 (6.6-38.0); CALCIUM 8.2 MG/DL (8.5-10.1); CHLORIDE 106 MMOL/L (99-107); GLUCOSE 90 MG/DL (70-104); POTASSIUM 3.8 MMOL/L (3.5-5.1); PREALBUMIN 13.1 MG/DL (19-36); SODIUM 143 MMOL/L (135-145); TOTAL CARBON DIOXIDE 25.5 MMOL/L (24-32); TOTAL PROTEIN 6.9 G/DL (6.4-8.2); eGFR 19 ML/MIN
[2021-04-19 07:46] LABS: ANISOCYTOSIS 3+; BURR CELLS FEW; ELLIPTOCYTES FEW; PLATELET ESTIMATE DECREASED; TEAR DROP CELLS FEW
[2021-04-19] MEDS: PARoxetine 20mg tablet PO SCH (08:28)
[2021-04-19] MEDS: cetirizine 10mg tablet PO SCH (08:28)
[2021-04-19] MEDS: apixaban 5mg tablet PO SCH ×2 (08:28→19:34)
[2021-04-19] MEDS: lactobacillus rhamnosus 10,000 MMU CELLS/CAPSULE PO SCH ×2 (08:28→19:34)
[2021-04-19] MEDS: albumin (human) 25% 100ml IV 100 ML IV SCH ×2 (08:28→19:35)
[2021-04-19] MEDS: folic acid 1mg tablet PO SCH (08:28)
[2021-04-19] MEDS: MULTIVIT-MIN/FERROUS GLUCONATE 9 MG/15 ML LIQUID PO SCH (08:29)
[2021-04-19] MEDS: thiamine 100mg tablet NG SCH (08:29)
[2021-04-19] MEDS: rifaximin 550mg tablet PO SCH ×2 (08:29→19:34)
[2021-04-19] MEDS: cholecalciferol (vitamin D3) 1,000 unit (25mcg) tablet NG SCH (08:29)
[2021-04-19] MEDS: lactulose 20gm/30ml cup PO SCH ×2 (08:29→19:34)
[2021-04-19] MEDS: mineral oil/petrolatum, white cream 113gm jar TP SCH ×2 (08:36→19:36)
[2021-04-19 11:00] VITALS: BP 118/86
[2021-04-19 15:00] VITALS: BP 129/72
[2021-04-19] MEDS: LORazepam 2 mg/ml vial IV PRN (15:08)
[2021-04-19 18:00] VITALS: BP 112/74
[2021-04-19] MEDS: insulin glargine (Lantus) pen - multi-dose SQ SCH (19:36)
[2021-04-19] MEDS: celeCOXIB 100mg capsule PO PRN (19:51)
[2021-04-19 22:00] VITALS: BP 115/75
--- NOTE | 2021-04-20 01:57 | NUR ---
PT RESTING COMFORTABLY IN BED WITH CALL LIGHT WITHIN REACH AND BED LOCKED IN LOWEST POSITION. PT CLEANED, NEW GOWN PLACED, NEW BEDDING PLACED AT THIS TIME.
[2021-04-20 02:00] VITALS: BP 115/67
[2021-04-20 06:00] VITALS: BP 143/70
[2021-04-20 07:08] LABS: BASOPHILS # (AUTO) 0.1 X10'3 (0-0.2); BASOPHILS % (AUTO) 1.2 % (0-1); EOSINOPHILS # (AUTO) 0.1 X10'3 (0-0.9); EOSINOPHILS % (AUTO) 1.9 % (0-6); HEMATOCRIT 26.2 % (35.0-45.0); HEMOGLOBIN 8.2 g/dl (12.0-16.0); LYMPHOCYTES # (AUTO) 0.9 X10'3 (1.1-4.8); LYMPHOCYTES % (AUTO) 12.3 % (21-51); MEAN CORPUSCULAR HEMOGLOBIN 27.8 PG (27.0-31.0); MEAN CORPUSCULAR HGB CONC 31.3 g/dL (33.0-36.5); MEAN CORPUSCULAR VOLUME 88.8 FL (78-98); MEAN PLATELET VOLUME 9.2 FL (7.4-10.4); MONOCYTES # (AUTO) 0.8 X10'3 (0-0.9); MONOCYTES % (AUTO) 11.5 % (2-12); NEUTROPHILS # (AUTO) 5.2 X10'3 (1.8-7.7); NEUTROPHILS % (AUTO) 73.1 % (42-75); PLATELET COUNT 103 X10'3 (140-440); RED BLOOD COUNT 2.95 X10'6 (4.20-5.60); RED CELL DISTRIBUTION WIDTH 21.4 % (11.5-14.5); WHITE BLOOD COUNT 7.2 X10'3 (4.5-11.0)
[2021-04-20 07:51] LABS: ANISOCYTOSIS 3+; ELLIPTOCYTES 1+; HYPOCHROMASIA 1+; PLATELET ESTIMATE DECREASED; POIKILOCYTOSIS FEW; POLYCHROMASIA FEW; SCHISTOCYTES FEW
[2021-04-20 07:56] LABS: ALANINE AMINOTRANSFERASE 54 U/L (12-78); ALBUMIN 3.5 G/DL (3.4-5.0); ALKALINE PHOSPHATASE 67 IU/L (46-116); ANION GAP 14 (8-16); ASPARTATE AMINO TRANSFERASE 35 U/L (10-37); BLOOD UREA NITROGEN 62 MG/DL (7-18); BUN/CREATININE RATIO 29.8 (6.6-38.0); CALCIUM 8.3 MG/DL (8.5-10.1); CHLORIDE 105 MMOL/L (99-107); CREATININE 2.08 MG/DL (0.40-0.90); GLUCOSE 95 MG/DL (70-104); POTASSIUM 3.4 MMOL/L (3.5-5.1); SODIUM 144 MMOL/L (135-145); TOTAL CARBON DIOXIDE 24.6 MMOL/L (24-32); TOTAL PROTEIN 7.1 G/DL (6.4-8.2); eGFR 24 ML/MIN
[2021-04-20] MEDS: lactulose 20gm/30ml cup PO SCH ×2 (07:56→20:00)
[2021-04-20] MEDS: rifaximin 550mg tablet PO SCH ×2 (07:56→19:59)
[2021-04-20] MEDS: albumin (human) 25% 100ml IV 100 ML IV SCH ×2 (07:56→19:51)
[2021-04-20] MEDS: cholecalciferol (vitamin D3) 1,000 unit (25mcg) tablet NG SCH (07:56)
[2021-04-20] MEDS: apixaban 5mg tablet PO SCH ×2 (07:56→19:56)
[2021-04-20] MEDS: lactobacillus rhamnosus 10,000 MMU CELLS/CAPSULE PO SCH ×2 (07:56→19:56)
[2021-04-20] MEDS: folic acid 1mg tablet PO SCH (07:56)
[2021-04-20] MEDS: MULTIVIT-MIN/FERROUS GLUCONATE 9 MG/15 ML LIQUID PO SCH (07:56)
[2021-04-20] MEDS: thiamine 100mg tablet NG SCH (07:56)
[2021-04-20] MEDS: mineral oil/petrolatum, white cream 113gm jar TP SCH ×2 (07:57→19:59)
[2021-04-20] MEDS: cetirizine 10mg tablet PO SCH (07:57)
[2021-04-20] MEDS: PARoxetine 20mg tablet PO SCH (07:57)
[2021-04-20] MEDS: POTASSIUM BICARB 20meq eff tab 20 MEQ TABLET.EFF PO PRN ×3 (10:32→19:56)
--- NOTE | 2021-04-20 11:07 | NUR ---
report given to mecca harrell. pt transferred to 348B. all pt belongings and medications sent with pt. pt notified of transferred and verbalized understanding.
[2021-04-20 12:07] VITALS: BP 113/77
--- NOTE | 2021-04-20 12:21 | NUR ---
PAGER ID: [phone] MESSAGE: DC RENETTA 348 TRANSFER FROM TELE. C/O 10/03 LOWER ABD PAIN. LIQUID STOOLS. AMMONIA<10. dc LACTULOSE? PAIN MEDS? PLEASE SEE ALLERGIES. ROSE [id number]
--- NOTE | 2021-04-20 17:30 | NUR ---
PRIMARY RN CAME BACK FROM BREAK. SAW EVERYONE RACING TOWARDS PT. ROOM. CALL LIGHT WAS ON. PT LEANING ON HER BED WITH KNEES ON FLOOR, STOOLING INCONTINENTLY. NO APPARENT INJURIES. CALLED. PT REPOSITIONED TO SIT ON HER BOTTOM. ATTEMPTED TO CLEAN STOOL MUCH POSSIBLE. 3 STAFF MEMBERS GOT PT. INTO LIZZETH LIFT. PT. MOVED INTO A SEPARATE BED WITH WORKING BED ALARM. CHARGE MOVED PT. TO ROOM 359. PT. ASSESSED FOR ANY FURTHER INJURIES. NONE NOTED. VSS. NO NEW ORDERS FROM HOSPITALIST. FALL BAND PLACED ON PT. AND CARE PLAN UPDATE.
[2021-04-20 17:45] VITALS: BP 118/82
--- NOTE | 2021-04-20 18:25 | NUR ---
Problems reprioritized. Patient report given, questions answered & plan of care reviewed with AUNDREA MEJIA.
--- NOTE | 2021-04-20 18:25 | NUR ---
Patient in room ANGELINE 359. I have received report from Virginia MEJIA and had the opportunity to ask questions and assume patient care..
[2021-04-20 19:00] VITALS: BP 113/90
[2021-04-20] MEDS: insulin glargine (Lantus) pen - multi-dose SQ SCH (19:40)
[2021-04-20] MEDS: celeCOXIB 100mg capsule PO PRN (19:59)
[2021-04-20] MEDS: LORazepam 1 MG tablet PO PRN (21:21)
[2021-04-21 00:08] VITALS: BP 117/69
--- NOTE | 2021-04-21 06:30 | NUR ---
Problems reprioritized. Patient report given, questions answered & plan of care reviewed with Roman MEJIA. Addendum: 04/21/21 at 1823 by Yonatan Isbell RN Pat RN Addendum: 04/21/21 at 1838 by Yonatan Isbell RN disreguard previous notes and amendments, Problems reprioritized. Patient report given, questions answered & plan of care reviewed with Etta MEJIA.
[2021-04-21 06:47] LABS: ALANINE AMINOTRANSFERASE 46 U/L (12-78); ALBUMIN 3.9 G/DL (3.4-5.0); ALBUMIN/GLOBULIN RATIO 1.2 (1.1-1.5); ALKALINE PHOSPHATASE 63 IU/L (46-116); ANION GAP 11 (8-16); ASPARTATE AMINO TRANSFERASE 29 U/L (10-37); BILIRUBIN,TOTAL 2.4 MG/DL (0.1-1.0); BLOOD UREA NITROGEN 53 MG/DL (7-18); BUN/CREATININE RATIO 30.8 (6.6-38.0); CALCIUM 8.6 MG/DL (8.5-10.1); CHLORIDE 108 MMOL/L (99-107); CREATININE 1.72 MG/DL (0.40-0.90); GLUCOSE 91 MG/DL (70-104); POTASSIUM 3.7 MMOL/L (3.5-5.1); SODIUM 146 MMOL/L (135-145); TOTAL CARBON DIOXIDE 27.3 MMOL/L (24-32); TOTAL PROTEIN 7.1 G/DL (6.4-8.2); eGFR 30 ML/MIN
[2021-04-21 06:54] LABS: BASOPHILS % (AUTO) 0.6 % (0-1); EOSINOPHILS # (AUTO) 0.1 X10'3 (0-0.9); EOSINOPHILS % (AUTO) 2.4 % (0-6); HEMATOCRIT 26.7 % (35.0-45.0); HEMOGLOBIN 8.5 g/dl (12.0-16.0); LYMPHOCYTES # (AUTO) 0.5 X10'3 (1.1-4.8); LYMPHOCYTES % (AUTO) 8.8 % (21-51); MEAN CORPUSCULAR VOLUME 87.2 FL (78-98); MEAN PLATELET VOLUME 8.7 FL (7.4-10.4); MONOCYTES # (AUTO) 0.6 X10'3 (0-0.9); MONOCYTES % (AUTO) 10.3 % (2-12); NEUTROPHILS # (AUTO) 4.7 X10'3 (1.8-7.7); NEUTROPHILS % (AUTO) 77.9 % (42-75); PLATELET COUNT 81 X10'3 (140-440); RED BLOOD COUNT 3.06 X10'6 (4.20-5.60); RED CELL DISTRIBUTION WIDTH 21.1 % (11.5-14.5)
[2021-04-21 07:32] VITALS: BP 125/76
[2021-04-21 07:33] LABS: HYPOCHROMASIA 1+; PLATELET ESTIMATE DECREASED; POLYCHROMASIA 1+
[2021-04-21 07:34] LABS: ANISOCYTOSIS 3+; BURR CELLS FEW; ELLIPTOCYTES 1+; TARGET CELLS FEW; TEAR DROP CELLS 1+
[2021-04-21] MEDS: cetirizine 10mg tablet PO SCH (08:16)
[2021-04-21] MEDS: apixaban 5mg tablet PO SCH ×2 (08:16→21:38)
[2021-04-21] MEDS: folic acid 1mg tablet PO SCH (08:16)
[2021-04-21] MEDS: thiamine 100mg tablet PO SCH (08:17)
[2021-04-21] MEDS: lactobacillus rhamnosus 10,000 MMU CELLS/CAPSULE PO SCH ×2 (08:17→21:38)
[2021-04-21] MEDS: PARoxetine 20mg tablet PO SCH (08:18)
[2021-04-21] MEDS: cholecalciferol (vitamin D3) 1,000 unit (25mcg) tablet NG SCH (08:18)
[2021-04-21] MEDS: rifaximin 550mg tablet PO SCH ×2 (08:18→21:38)
[2021-04-21] MEDS: MULTIVIT-MIN/FERROUS GLUCONATE 9 MG/15 ML LIQUID PO SCH (08:19)
[2021-04-21] MEDS: mineral oil/petrolatum, white cream 113gm jar TP SCH ×2 (08:19→19:47)
[2021-04-21] MEDS: lactulose 20gm/30ml cup PO SCH ×2 (08:19→21:39)
[2021-04-21] MEDS: celeCOXIB 100mg capsule PO PRN (09:55)
--- NOTE | 2021-04-21 10:26 | NUR ---
Reassessment: Pt A/O x 2, confused, and resistive to care per physical assessment. Patient's PO intake appears to be slowly improving, averaging 25-50% PO intake since last RD assessment 04/18, though still not meeting estimated nutrient needs. Additional recommended nutrition interventions were d/w dietary, see below. Pt documented to be receiving max assistance with meals though independent at lunch 04/20. Recommend continuing with assistance wt meals in view of ALOC. Pt would likely benefit from supplemental nutrition to assist with meeting estimated nutrient needs in view of prolonged poor PO intake, ALOC, and resistiveness to care. LBM 04/20, pt continues receiving routine Lactulose BID. Will continue to follow closely and monitor need for further nutrition intervention. Recommendations: 1) Continue MM5/thin liquids per ST recs; assist with meals and encourage PO intake 2) IF PO remains below 50-65% avg meals; Continuous TF using Jevity 1.2 with goal rate of 75 mL/hr via NG 3) Yogurt WB, cottage cheese WL, milkshake BIDLD 4) Bowel care per rx 5) Weekly scaled wts Addendum: 04/21/21 at [address] Amended: Links added.
[2021-04-21 13:49] LABS: CLARITY,URINE CLOUDY (Clear); COLOR,URINE YELLOW (Yellow); GLUCOSE, URINE NEGATIVE (Neg); KETONES,URINE NEGATIVE (Neg); LEUKOCYTE ESTERASE ,URINE TRACE (Neg); NITRITES, URINE NEGATIVE (Neg); OCCULT BLOOD,URINE LARGE (Neg); PROTEIN,URINE 100 mg/dl (Neg)
[2021-04-21 13:56] LABS: SQUAMOUS EPITHELIAL CELL,UR FEW /LPF (FEW); WBC,URINE 30-50 /HPF (0-4)
[2021-04-21 13:57] LABS: RBC,URINE TNTC /HPF (0-2)
[2021-04-21 14:00] LABS: BACTERIA,URINE FEW /HPF (Neg)
[2021-04-21 14:01] LABS: UA COLLECTION TYPE OTHER
--- NOTE | 2021-04-21 18:30 | NUR ---
Patient in room ANGELINE 359. I have received report from Roman MEJIA and had the opportunity to ask questions and assume patient care.
[2021-04-21 19:00] VITALS: BP 102/67
[2021-04-21] MEDS: insulin glargine (Lantus) pen - multi-dose SQ SCH (21:00)
[2021-04-21] MEDS: Melatonin 3mg tablet PO PRN (23:33)
[2021-04-22 00:50] VITALS: BP 110/70
--- NOTE | 2021-04-22 06:43 | NUR ---
Problems reprioritized. Patient report given, questions answered & plan of care reviewed with Jannet MEJIA.
--- NOTE | 2021-04-22 06:49 | NUR ---
Patient in room ANGELINE 359. I have received report from renetta MEJIA and had the opportunity to ask questions and assume patient care.
[2021-04-22 07:00] VITALS: BP 99/69
[2021-04-22] MEDS: thiamine 100mg tablet PO SCH (08:00)
[2021-04-22] MEDS: lactulose 20gm/30ml cup PO SCH ×2 (08:00→19:47)
[2021-04-22] MEDS: mineral oil/petrolatum, white cream 113gm jar TP SCH ×2 (08:00→19:48)
[2021-04-22] MEDS: lactobacillus rhamnosus 10,000 MMU CELLS/CAPSULE PO SCH ×2 (08:01→19:47)
[2021-04-22] MEDS: rifaximin 550mg tablet PO SCH ×2 (08:01→19:48)
[2021-04-22] MEDS: MULTIVIT-MIN/FERROUS GLUCONATE 9 MG/15 ML LIQUID PO SCH (08:01)
[2021-04-22] MEDS: apixaban 5mg tablet PO SCH ×2 (08:01→19:48)
[2021-04-22] MEDS: cholecalciferol (vitamin D3) 1,000 unit (25mcg) tablet NG SCH (08:01)
[2021-04-22] MEDS: cetirizine 10mg tablet PO SCH (08:01)
[2021-04-22] MEDS: folic acid 1mg tablet PO SCH (08:01)
[2021-04-22] MEDS: PARoxetine 20mg tablet PO SCH (08:02)
[2021-04-22 11:00] VITALS: BP 108/74
[2021-04-22] MEDS: celeCOXIB 100mg capsule PO PRN (17:55)
--- NOTE | 2021-04-22 17:57 | NUR ---
patient had 3 loose stools. c./o pain in stomach Ok by Dr Avendano to have morphine with zofran prior to administration as patient stated she can throw up with morphine. Patient requesting celebrex initially. confused at times, but able to re-orientate to self.
--- NOTE | 2021-04-22 18:33 | NUR ---
Problems reprioritized. Patient report given, questions answered & plan of care reviewed with fadumo MEJIA.
--- NOTE | 2021-04-22 18:35 | NUR ---
I have received report from Jannet MEJIA and had the opportunity to ask questions and assume patient care.
[2021-04-22 19:00] VITALS: BP 116/71
[2021-04-22] MEDS: insulin glargine (Lantus) pen - multi-dose SQ SCH (19:51)
[2021-04-22] MEDS: Melatonin 3mg tablet PO PRN (22:08)
[2021-04-23] VITALS: BP 113/78
--- NOTE | 2021-04-23 06:09 | NUR ---
Problems reprioritized. Patient report given, questions answered & plan of care reviewed with Monika MEJIA.
--- NOTE | 2021-04-23 06:30 | NUR ---
Patient in room ANGELINE 359. I have received report from Allyson MEJIA and had the opportunity to ask questions and assume patient care.
[2021-04-23 07:00] VITALS: BP 119/84
[2021-04-23] MEDS: thiamine 100mg tablet PO SCH (07:42)
[2021-04-23] MEDS: lactulose 20gm/30ml cup PO SCH ×2 (07:42→20:27)
[2021-04-23] MEDS: folic acid 1mg tablet PO SCH (07:42)
[2021-04-23] MEDS: MULTIVIT-MIN/FERROUS GLUCONATE 9 MG/15 ML LIQUID PO SCH (07:42)
[2021-04-23] MEDS: cholecalciferol (vitamin D3) 1,000 unit (25mcg) tablet NG SCH (07:43)
[2021-04-23] MEDS: apixaban 5mg tablet PO SCH ×2 (07:43→20:18)
[2021-04-23] MEDS: cetirizine 10mg tablet PO SCH (07:43)
[2021-04-23] MEDS: PARoxetine 20mg tablet PO SCH (07:43)
[2021-04-23] MEDS: lactobacillus rhamnosus 10,000 MMU CELLS/CAPSULE PO SCH ×2 (07:43→20:18)
[2021-04-23] MEDS: mineral oil/petrolatum, white cream 113gm jar TP SCH ×2 (07:43→20:19)
[2021-04-23] MEDS: rifaximin 550mg tablet PO SCH ×2 (07:43→20:19)
[2021-04-23] MEDS: celeCOXIB 100mg capsule PO PRN (08:48)
[2021-04-23] MEDS: morphine 2 MG/ML inj. syringe IV PRN ×3 (09:31→22:23)
[2021-04-23 11:00] VITALS: BP 124/73
--- NOTE | 2021-04-23 17:59 | NUR ---
Problems reprioritized. Patient report given, questions answered & plan of care reviewed with Allyson MEJIA.
--- NOTE | 2021-04-23 18:00 | NUR ---
Per Doctor Rusu if the patient has more then 7 BM's the nurse may hold lactulose one time 04/23/21 at 2000.
--- NOTE | 2021-04-23 18:30 | NUR ---
I have received report from Monika MEJIA and had the opportunity to ask questions and assume patient care.
[2021-04-23 19:00] VITALS: BP 128/82
[2021-04-23] MEDS: insulin glargine (Lantus) pen - multi-dose SQ SCH (20:19)
[2021-04-23] MEDS: Melatonin 3mg tablet PO PRN (22:23)
[2021-04-24] VITALS: BP 138/88
[2021-04-24] MEDS: morphine 2 MG/ML inj. syringe IV PRN (05:11)
--- NOTE | 2021-04-24 06:01 | NUR ---
Problems reprioritized. Patient report given, questions answered & plan of care reviewed with Monika MEJIA.
[2021-04-24 07:00] VITALS: BP 125/79
[2021-04-24 07:11] LABS: BASOPHILS # (AUTO) 0.1 X10'3 (0-0.2); BASOPHILS % (AUTO) 0.8 % (0-1); EOSINOPHILS # (AUTO) 0.2 X10'3 (0-0.9); EOSINOPHILS % (AUTO) 2.6 % (0-6); HEMATOCRIT 29.7 % (35.0-45.0); HEMOGLOBIN 9.2 g/dl (12.0-16.0); LYMPHOCYTES # (AUTO) 0.6 X10'3 (1.1-4.8); LYMPHOCYTES % (AUTO) 8.9 % (21-51); MEAN CORPUSCULAR HEMOGLOBIN 26.8 PG (27.0-31.0); MEAN CORPUSCULAR HGB CONC 30.8 g/dL (33.0-36.5); MEAN PLATELET VOLUME 8.9 FL (7.4-10.4); MONOCYTES # (AUTO) 0.7 X10'3 (0-0.9); MONOCYTES % (AUTO) 10.1 % (2-12); NEUTROPHILS # (AUTO) 5.1 X10'3 (1.8-7.7); NEUTROPHILS % (AUTO) 77.6 % (42-75); PLATELET COUNT 86 X10'3 (140-440); RED BLOOD COUNT 3.42 X10'6 (4.20-5.60); RED CELL DISTRIBUTION WIDTH 20.7 % (11.5-14.5); WHITE BLOOD COUNT 6.5 X10'3 (4.5-11.0)
[2021-04-24] MEDS: cetirizine 10mg tablet PO SCH (07:22)
[2021-04-24] MEDS: rifaximin 550mg tablet PO SCH ×2 (07:22→20:56)
[2021-04-24] MEDS: folic acid 1mg tablet PO SCH (07:22)
[2021-04-24] MEDS: lactulose 20gm/30ml cup PO SCH ×2 (07:23→20:00)
[2021-04-24] MEDS: thiamine 100mg tablet PO SCH (07:23)
[2021-04-24] MEDS: MULTIVIT-MIN/FERROUS GLUCONATE 9 MG/15 ML LIQUID PO SCH ×2 (07:23→08:00)
[2021-04-24] MEDS: PARoxetine 20mg tablet PO SCH (07:23)
[2021-04-24] MEDS: cholecalciferol (vitamin D3) 1,000 unit (25mcg) tablet NG SCH (07:23)
[2021-04-24] MEDS: lactobacillus rhamnosus 10,000 MMU CELLS/CAPSULE PO SCH ×2 (07:23→20:56)
[2021-04-24] MEDS: apixaban 5mg tablet PO SCH ×2 (07:23→20:56)
[2021-04-24] MEDS: mineral oil/petrolatum, white cream 113gm jar TP SCH ×2 (07:24→20:56)
[2021-04-24 07:36] LABS: PLATELET ESTIMATE DECREASED
[2021-04-24 07:37] LABS: ANISOCYTOSIS 2+
[2021-04-24 07:38] LABS: ACANTHOCYTES FEW; ELLIPTOCYTES 1+
[2021-04-24 07:45] LABS: ALANINE AMINOTRANSFERASE 43 U/L (12-78); ALBUMIN 3.5 G/DL (3.4-5.0); ALBUMIN/GLOBULIN RATIO 0.9 (1.1-1.5); ALKALINE PHOSPHATASE 72 IU/L (46-116); ANION GAP 12 (8-16); ASPARTATE AMINO TRANSFERASE 33 U/L (10-37); BILIRUBIN,TOTAL 2.2 MG/DL (0.1-1.0); BLOOD UREA NITROGEN 29 MG/DL (7-18); BUN/CREATININE RATIO 23.4 (6.6-38.0); CALCIUM 8.6 MG/DL (8.5-10.1); CHLORIDE 109 MMOL/L (99-107); CREATININE 1.24 MG/DL (0.40-0.90); GLUCOSE 89 MG/DL (70-104); POTASSIUM 3.5 MMOL/L (3.5-5.1); SODIUM 148 MMOL/L (135-145); TOTAL CARBON DIOXIDE 26.7 MMOL/L (24-32); TOTAL PROTEIN 7.2 G/DL (6.4-8.2); eGFR 44 ML/MIN
[2021-04-24 12:00] VITALS: BP 126/75
--- NOTE | 2021-04-24 14:01 | NUR ---
Reassessment: Pt A/O x 1 and confused and continues with poor PO intake of meals, documented with average 25% PO intake with meal refusals and one meal up to 50% PO intake since last RD assessment 04/21. Pt documented to be receiving moderate assistance with meals. D/w RN recommendation for pt to receive TF with MD approval in order to meet estimated nutrient needs as pt with poor PO intake since PO diet was advanced 04/09 and pt with poor PO intake prior to TF 04/03-04/05. Pt clearly unable to meet estimated nutrient needs with PO intake alone and would greatly benefit from nutrition support. TF recommendations below. LBM 04/24. Will continue to follow closely. Recommendations: 1) Continue MM5/thin liquids per ST recs; assist with meals and encourage PO intake 2) Given prolonged poor PO intake, continuous TF using Jevity 1.2 with goal rate of 75 mL/hr via NG with MD approval 3) Yogurt WB, cottage cheese WL, milkshake BIDLD 4) Bowel care per rx 5) Weekly scaled wts Addendum: 04/24/21 at [address] Amended: Links added.
[2021-04-24] MEDS: LORazepam 2 mg/ml vial IV PRN (16:46)
--- NOTE | 2021-04-24 18:39 | NUR ---
Problems reprioritized. Patient report given, questions answered & plan of care reviewed with
--- NOTE | 2021-04-24 18:53 | NUR ---
Patient in room [facility]GELINE 359. I have received report from Monika MEJIA and had the opportunity to ask questions and assume patient care.
[2021-04-24 20:00] VITALS: BP 122/85
[2021-04-24] MEDS: insulin glargine (Lantus) pen - multi-dose SQ SCH (21:00)
[2021-04-25] VITALS (13 sets, daily range): BP systolic 92–167; BP diastolic 51–92
[2021-04-25] MEDS: LORazepam 2 mg/ml vial IV PRN (04:43)
--- NOTE | 2021-04-25 06:03 | NUR ---
Problems reprioritized. Patient report given, questions answered & plan of care reviewed with Janel MEJIA.
--- NOTE | 2021-04-25 07:20 | NUR ---
Patient in room [facility] 359. I have received report from Sheree MEJIA and had the opportunity to ask questions and assume patient care.
[2021-04-25] MEDS: lactobacillus rhamnosus 10,000 MMU CELLS/CAPSULE PO SCH ×2 (08:29→20:21)
[2021-04-25] MEDS: MULTIVIT-MIN/FERROUS GLUCONATE 9 MG/15 ML LIQUID PO SCH (08:29)
[2021-04-25] MEDS: cetirizine 10mg tablet PO SCH (08:29)
[2021-04-25] MEDS: folic acid 1mg tablet PO SCH (08:29)
[2021-04-25] MEDS: apixaban 5mg tablet PO SCH ×2 (08:29→20:21)
[2021-04-25] MEDS: cholecalciferol (vitamin D3) 1,000 unit (25mcg) tablet NG SCH (08:29)
[2021-04-25] MEDS: thiamine 100mg tablet PO SCH (08:29)
[2021-04-25] MEDS: lactulose 20gm/30ml cup PO SCH ×2 (08:29→20:21)
[2021-04-25] MEDS: rifaximin 550mg tablet PO SCH (08:30)
[2021-04-25] MEDS: PARoxetine 20mg tablet PO SCH (08:31)
[2021-04-25] MEDS: mineral oil/petrolatum, white cream 113gm jar TP SCH ×2 (08:44→22:10)
--- NOTE | 2021-04-25 10:26 | NUR ---
PAGER ID: [phone] MESSAGE: Janel-Surg [phone] Re: Morgan 359Q complaining of Chest pain BP 137/92 HR 132 please call would you like EKG? Addendum: 04/25/21 at 1057 by Janel Goldstein RN EKG read by Dr Ahn received orders for Ativan 0.5mg IV QID
--- NOTE | 2021-04-25 10:59 | NUR ---
PAGER ID: [phone] MESSAGE: Janel-Surg [phone] Re: Jennifer Ativan order is actually 1mg IV prn can I do that QID?
[2021-04-25] MEDS ORDERED: LORazepam 2 mg/ml vial IV PRN (11:20)
[2021-04-25] MEDS: morphine 2 MG/ML inj. syringe IV PRN (12:20)
--- NOTE | 2021-04-25 14:15 | NUR ---
PAGER ID: [phone] MESSAGE: Janel-Surg [phone] Re: 359B Jennifer was wondering if patient should be on Tele monitor due to heart rate and RR rate
--- NOTE | 2021-04-25 14:30 | NUR ---
Was in patients room with respiratory therapy and sitter trying to draw ABG's on patient, During the draw patient had a few apnic periods and had to sternal rub patient to get her to breath again. Rapid response was called on patient Vitals at this time 161/84 HR 134 SPO2 93 % RA Rechecked vitals at the time of rapid response 167/83 HR 127 96% on 15L non rebreather, Dr Ahn paged and he showed up to the floor along with the Rapid response team.
--- NOTE | 2021-04-25 15:07 | NUR ---
PAGER ID: [phone] MESSAGE: Janel-Surg [phone] Re: [id number] [place] was wondering if patient should be on Tele monitor due to heart rate and RR rate Addendum: 04/25/21 at 1507 by Janel Goldstein RN Dr Ahn called back spoke to review nurse Nicole received orders for a chest xray and ABG's
[2021-04-25 15:43] LABS: ABG BASE EXCESS -10.9 mmol/L (-2.0-2.0); ABG HCO3 13.5 mmol/L (22.0-26.0); ABG OXYGEN SATURATION 77.6 % (94-97); ABG PCO2 (T) 26.1 mmHg (32.0-45.0); ABG PO2 (T) 47.2 mmHg (75.0-100.0); ALLEN'S TEST POSITIVE; FCOHb 1.1 % (0.0-3.9); FLOW 0 L/min; FMetHb 0.4 % (0.0-1.5); FO2Hb 76.4 % (94-97); TOTAL HEMOGLOBIN 10.1 G/dl (12.0-16.0)
--- NOTE | 2021-04-25 15:45 | NUR ---
PAGER ID: [phone] MESSAGE: Janel- Surg [phone] Called rapid on 359B patient having apnic periods
[2021-04-25] MEDS ORDERED: furosemide 40mg/4ml inj IV ONE (15:55)
[2021-04-25 16:15] LABS: BASOPHILS # (AUTO) 0.1 X10'3 (0-0.2); BASOPHILS % (AUTO) 0.7 % (0-1); EOSINOPHILS % (AUTO) 0.4 % (0-6); HEMATOCRIT 31.5 % (35.0-45.0); HEMOGLOBIN 9.6 g/dl (12.0-16.0); LYMPHOCYTES # (AUTO) 0.8 X10'3 (1.1-4.8); LYMPHOCYTES % (AUTO) 8.2 % (21-51); MEAN CORPUSCULAR HGB CONC 30.4 g/dL (33.0-36.5); MEAN CORPUSCULAR VOLUME 88.6 FL (78-98); MONOCYTES # (AUTO) 1.4 X10'3 (0-0.9); MONOCYTES % (AUTO) 14.8 % (2-12); NEUTROPHILS # (AUTO) 7.2 X10'3 (1.8-7.7); NEUTROPHILS % (AUTO) 75.9 % (42-75); PLATELET COUNT 170 X10'3 (140-440); RED BLOOD COUNT 3.56 X10'6 (4.20-5.60); RED CELL DISTRIBUTION WIDTH 21.7 % (11.5-14.5); WHITE BLOOD COUNT 9.5 X10'3 (4.5-11.0)
--- NOTE | 2021-04-25 16:15 | NUR ---
pt received from surgical floor post rapid response to room 2037. st 130's, rr 40's with sat 100%. pt moans- coarse breath sounds- not responsive to commands. dr mason here- ct head ordered- bleeding from mouth. blood in ghosh- just received lasix
--- NOTE | 2021-04-25 16:25 | NUR ---
Patient transferred via hospital bed to 2037 ICU and bedside report given to Shu MEJIA after assisting with transfer to ICU bed
[2021-04-25 16:29] LABS: ALANINE AMINOTRANSFERASE 55 U/L (12-78); ALBUMIN/GLOBULIN RATIO 0.9 (1.1-1.5); ALKALINE PHOSPHATASE 77 IU/L (46-116); ANION GAP 20 (8-16); ASPARTATE AMINO TRANSFERASE 61 U/L (10-37); BILIRUBIN,TOTAL 3.8 MG/DL (0.1-1.0); BLOOD UREA NITROGEN 27 MG/DL (7-18); BUN/CREATININE RATIO 17.3 (6.6-38.0); CALCIUM 8.9 MG/DL (8.5-10.1); CHLORIDE 109 MMOL/L (99-107); CREATININE 1.56 MG/DL (0.40-0.90); POTASSIUM 4.3 MMOL/L (3.5-5.1); SODIUM 148 MMOL/L (135-145); TOTAL PROTEIN 8.3 G/DL (6.4-8.2); TROPONIN I 0.16 NG/ML (0.0-0.05); eGFR 34 ML/MIN
[2021-04-25 16:30] LABS: GLUCOSE 21 MG/DL (70-104)
[2021-04-25] MEDS ORDERED: dextrose 50%-water 50ml dispensing syringe IV ONE (16:31)
[2021-04-25] MEDS ORDERED: midazolam 1 mg/ML 2ml injection ONE ×2 (16:49→16:56)
--- NOTE | 2021-04-25 16:50 | NUR ---
dr mason aware of labs, la of 8.7. - pts status unchanged- abgs on floor on ra with po2 of 40's- acidotic- glucose by lab on floor- 21- dextrose 50 given with resultant bs of 194 pt intubated and placed on 100%. po2 in the 40's- peep to 10. to ct by bed
[2021-04-25 16:56] LABS: ANISOCYTOSIS 3+; ELLIPTOCYTES 1+; PLATELET ESTIMATE NORMAL
[2021-04-25 16:57] LABS: BURR CELLS 1+; HYPOCHROMASIA 1+; LARGE PLATELETS FEW; SCHISTOCYTES 1+
[2021-04-25] MEDS ORDERED: fentaNYL/PF 50MCG/1 ML 2ML syringe IV PRN (17:00)
[2021-04-25] MEDS ORDERED: ipratropium/albuterol 3ml nebule NEB PRN (17:00)
[2021-04-25] MEDS ORDERED: midazolam 1 mg/ML 2ml injection IV ONE (17:00)
--- NOTE | 2021-04-25 17:30 | NUR ---
sats by monitor 21- 70's- aware- rt bagging pt briefly- sats not correct per dr mason.sbp decreasing- cl placed rt sc.
[2021-04-25 17:41] LABS: ABG BASE EXCESS -11.5 mmol/L (-2.0-2.0); ABG HCO3 15.5 mmol/L (22.0-26.0); ABG OXYGEN SATURATION 65.1 % (94-97); ABG PCO2 (T) 39.6 mmHg (32.0-45.0); ABG PO2 (T) 44.1 mmHg (75.0-100.0); FCOHb 0.7 % (0.0-3.9); FMetHb 0.5 % (0.0-1.5); FO2Hb 64.3 % (94-97); PEEP 5 cm H2O; RESPIRATORY RATE 24 b/min; TIDAL VOLUME 393 mL; TOTAL HEMOGLOBIN 8.3 G/dl (12.0-16.0)
[2021-04-25] MEDS ORDERED: vancomycin/NS 1 GM ADD-VANTAGE 250 ML IV ONE (17:45)
--- NOTE | 2021-04-25 18:30 | NUR ---
RT here to do abg on peep of 10- much improved- sats on monitor inacurate- wnl by abg on 100%
--- NOTE | 2021-04-25 18:30 | NUR ---
Patient in room ICU 2037. I have received report from ROBERTO Ireland and had the opportunity to ask questions and assume patient care.
[2021-04-25 18:34] LABS: ABG BASE EXCESS -5.6 mmol/L (-2.0-2.0); ABG HCO3 17.7 mmol/L (22.0-26.0); ABG OXYGEN SATURATION 99.9 % (94-97); ABG PCO2 (T) 26.8 mmHg (32.0-45.0); ABG PO2 (T) 292.5 mmHg (75.0-100.0); ALLEN'S TEST POSITIVE; FCOHb 0.8 % (0.0-3.9); FMetHb 0.3 % (0.0-1.5); FO2Hb 98.8 % (94-97); PATIENT TEMPERATURE 37.2; PEEP 10 cm H2O; RESPIRATORY RATE 24 b/min; TIDAL VOLUME 350 mL; TOTAL HEMOGLOBIN 8.5 G/dl (12.0-16.0)
[2021-04-25] MEDS: FENTANYL-0.9 % NACL/PF 100 ML IV PRN (18:51)
[2021-04-25] MEDS: midazolam 100mg in NS 100ml 100 ML IV PRN (18:51)
[2021-04-25] MEDS: ipratropium/albuterol 3ml nebule NEB SCH ×2 (18:56→23:20)
[2021-04-25] MEDS: piperacillin/tazo 3.375gm/50ml 50 ML IV SCH (19:42)
[2021-04-25 20:03] LABS: CLARITY,URINE CLEAR (Clear); COLOR,URINE YELLOW (Yellow); GLUCOSE, URINE NEGATIVE (Neg); KETONES,URINE NEGATIVE (Neg); LEUKOCYTE ESTERASE ,URINE TRACE (Neg); NITRITES, URINE NEGATIVE (Neg); OCCULT BLOOD,URINE MODERATE (Neg); PROTEIN,URINE 100 mg/dl (Neg); UROBILINOGEN,URINE 0.2 E.U/dL (0.2-1.0)
[2021-04-25 20:05] LABS: UA COLLECTION TYPE FOLEY CATH
[2021-04-25 20:22] LABS: BACTERIA,URINE FEW /HPF (Neg); MUCUS STRANDS FEW /LPF (Neg); RBC,URINE 20-50 /HPF (0-2); SQUAMOUS EPITHELIAL CELL,UR NONE SEEN /LPF (FEW); TRANSITIONAL EPI CELLS,URINE FEW /HPF
[2021-04-25 20:23] LABS: WBC CLUMPS,URINE FEW /HPF (NEGATIVE)
[2021-04-25] MEDS: insulin glargine (Lantus) pen - multi-dose SQ SCH (20:32)
[2021-04-26] VITALS (24 sets, daily range): BP systolic 81–117; BP diastolic 45–77
[2021-04-26] MEDS: piperacillin/tazo 3.375gm/50ml 50 ML IV SCH ×3 (00:13→15:20)
[2021-04-26 02:25] LABS: BASOPHILS % (AUTO) 0.6 % (0-1); EOSINOPHILS % (AUTO) 0.3 % (0-6); HEMATOCRIT 24.6 % (35.0-45.0); HEMOGLOBIN 7.7 g/dl (12.0-16.0); LYMPHOCYTES # (AUTO) 0.8 X10'3 (1.1-4.8); LYMPHOCYTES % (AUTO) 10.4 % (21-51); MEAN CORPUSCULAR HEMOGLOBIN 26.7 PG (27.0-31.0); MEAN CORPUSCULAR HGB CONC 31.1 g/dL (33.0-36.5); MEAN PLATELET VOLUME 8.7 FL (7.4-10.4); MONOCYTES # (AUTO) 0.6 X10'3 (0-0.9); MONOCYTES % (AUTO) 7.9 % (2-12); NEUTROPHILS # (AUTO) 6.3 X10'3 (1.8-7.7); NEUTROPHILS % (AUTO) 80.8 % (42-75); PLATELET COUNT 92 X10'3 (140-440); RED BLOOD COUNT 2.86 X10'6 (4.20-5.60); RED CELL DISTRIBUTION WIDTH 20.9 % (11.5-14.5); WHITE BLOOD COUNT 7.8 X10'3 (4.5-11.0)
[2021-04-26 02:35] LABS: PARTIAL THROMBOPLASTIN TIME 50 SECONDS (22-32)
[2021-04-26 02:37] LABS: ALANINE AMINOTRANSFERASE 91 U/L (12-78); ALBUMIN 2.8 G/DL (3.4-5.0); ALBUMIN/GLOBULIN RATIO 0.9 (1.1-1.5); ALKALINE PHOSPHATASE 58 IU/L (46-116); ANION GAP 12 (8-16); ASPARTATE AMINO TRANSFERASE 170 U/L (10-37); BILIRUBIN,TOTAL 3.3 MG/DL (0.1-1.0); BLOOD UREA NITROGEN 29 MG/DL (7-18); BUN/CREATININE RATIO 18.2 (6.6-38.0); CALCIUM 8.1 MG/DL (8.5-10.1); CHLORIDE 112 MMOL/L (99-107); CREATININE 1.59 MG/DL (0.40-0.90); GLUCOSE 90 MG/DL (70-104); PHOSPHORUS 4.1 MG/DL (2.3-4.5); POTASSIUM 3.3 MMOL/L (3.5-5.1); SODIUM 149 MMOL/L (135-145); TOTAL CARBON DIOXIDE 25.3 MMOL/L (24-32); TOTAL PROTEIN 5.8 G/DL (6.4-8.2); eGFR 33 ML/MIN
[2021-04-26] MEDS ORDERED: dexmedetomidine/D5W 100mL 100 ML IV SCH (02:50)
[2021-04-26] MEDS ORDERED: NORepinephrine 8mg/ 250ml NS 250 ML IV ONE (02:53)
[2021-04-26] MEDS: ipratropium/albuterol 3ml nebule NEB SCH ×6 (02:58→23:41)
[2021-04-26] MEDS: NORepinephrine 8mg/ 250ml NS 250 ML IV PRN (03:01)
--- NOTE | 2021-04-26 03:20 | NUR ---
BP has been soft all night and now as low as 72/39; MD Moon notified, MD ordered replacing versed and fentanyl with precedex with a PRN order for fentanyl IV push and levo until versed clears.
[2021-04-26 03:21] LABS: ABG BASE EXCESS -2.7 mmol/L (-2.0-2.0); ABG HCO3 19.3 mmol/L (22.0-26.0); ABG OXYGEN SATURATION 95.9 % (94-97); ABG PCO2 (T) 23.6 mmHg (32.0-45.0); ABG PO2 (T) 78.3 mmHg (75.0-100.0); ALLEN'S TEST POSITIVE; FCOHb 0.8 % (0.0-3.9); FMetHb 0.6 % (0.0-1.5); FO2Hb 94.6 % (94-97); PEEP 10 cm H2O; RESPIRATORY RATE 24 b/min; TIDAL VOLUME 350 mL; TOTAL HEMOGLOBIN 7.9 G/dl (12.0-16.0)
[2021-04-26] MEDS: POTASSIUM BICARB 20meq eff tab 20 MEQ TABLET.EFF PO PRN ×3 (03:37→15:21)
[2021-04-26] MEDS ORDERED: albumin (Human) 5% 250ml 250 ML IV ONE (04:30)
[2021-04-26 05:58] LABS: PLATELET ESTIMATE DECREASED
[2021-04-26 05:59] LABS: ANISOCYTOSIS 3+; ELLIPTOCYTES 1+
[2021-04-26 06:01] LABS: SCHISTOCYTES FEW
--- NOTE | 2021-04-26 06:18 | NUR ---
Problems reprioritized. Patient report given, questions answered & plan of care reviewed with ROBERTO Ireland.
--- NOTE | 2021-04-26 06:30 | NUR ---
Patient in room ICU 2037. I have received report from triston and had the opportunity to ask questions and assume patient care.
[2021-04-26] MEDS ORDERED: furosemide 40mg/4ml inj IV SCH (08:00)
[2021-04-26] MEDS: lactulose 20gm/30ml cup PO SCH ×2 (08:50→20:26)
[2021-04-26] MEDS: folic acid 1mg tablet PO SCH (08:50)
[2021-04-26] MEDS: apixaban 5mg tablet PO SCH ×2 (08:50→20:26)
[2021-04-26] MEDS: thiamine 100mg tablet PO SCH (08:50)
[2021-04-26] MEDS: MULTIVIT-MIN/FERROUS GLUCONATE 9 MG/15 ML LIQUID PO SCH (08:50)
[2021-04-26] MEDS: lactobacillus rhamnosus 10,000 MMU CELLS/CAPSULE PO SCH ×2 (08:50→20:26)
[2021-04-26] MEDS: cholecalciferol (vitamin D3) 1,000 unit (25mcg) tablet NG SCH (08:50)
[2021-04-26] MEDS: vitamin A & D ointment-NF 1 APPLIC TUBE TP PRN (08:52)
[2021-04-26] MEDS: mineral oil/petrolatum, white cream 113gm jar TP SCH ×2 (08:53→20:27)
--- NOTE | 2021-04-26 10:00 | NUR ---
update to md- vbg and abg drawn by RT. fio2 to 40% with peep still at 10. remains on levophed. precedex dcd and fent/versed resumed as per orders. pt doesnt open eyes to speech or pain, but grimaces with oral care. body spasms or stiffens with turns. eyes deviate at times- md aware.
[2021-04-26 10:04] LABS: OXYGEN SATURATION (MIXED VEN) 69.2 % (60-80); PO2 MIXED VENOUS (TEMP COR) 36.1 mmHg (35-46)
[2021-04-26 10:08] LABS: ABG BASE EXCESS -3.9 mmol/L (-2.0-2.0); ABG HCO3 19.6 mmol/L (22.0-26.0); ABG OXYGEN SATURATION 98.5 % (94-97); ABG PCO2 (T) 30.1 mmHg (32.0-45.0); ALLEN'S TEST POSITIVE; FCOHb 0.5 % (0.0-3.9); FMetHb 0.6 % (0.0-1.5); FO2Hb 97.4 % (94-97); PEEP 10 cm H2O; RESPIRATORY RATE 18 b/min; TIDAL VOLUME 350 mL; TOTAL HEMOGLOBIN 9.3 G/dl (12.0-16.0)
[2021-04-26 11:00] LABS: CLARITY,URINE CLOUDY (Clear); COLOR,URINE YELLOW (Yellow); GLUCOSE, URINE NEGATIVE (Neg); KETONES,URINE NEGATIVE (Neg); LEUKOCYTE ESTERASE ,URINE SMALL (Neg); NITRITES, URINE NEGATIVE (Neg); OCCULT BLOOD,URINE TRACE-INTACT (Neg); PROTEIN,URINE 30 mg/dl (Neg); UROBILINOGEN,URINE 0.2 E.U/dL (0.2-1.0)
[2021-04-26 11:03] LABS: UA COLLECTION TYPE FOLEY CATH
[2021-04-26 11:06] LABS: MUCUS STRANDS FEW /LPF (Neg); SQUAMOUS EPITHELIAL CELL,UR MODERATE /LPF (FEW)
[2021-04-26 11:07] LABS: RBC,URINE 0-2 /HPF (0-2)
[2021-04-26 11:08] LABS: TRANSITIONAL EPI CELLS,URINE MANY /HPF
[2021-04-26 11:09] LABS: BACTERIA,URINE 2+ /HPF (Neg); COARSE GRANULAR CAST 0-3 /LPF (NEGATIVE); FINE GRANULAR CAST 0-3 /LPF (NEGATIVE)
--- NOTE | 2021-04-26 11:31 | NUR ---
TF consult: Pt s/p rapid response and transferred to ICU. Pt intubated at this time, with an OG tube in place. Pt to begin TF, see recommendations below. Will monitor for signs of refeeding syndrome in view of prolonged poor nutrition status. LBM 6/2, documented as diarrhea likely r/t routine Lactulose. Pt now with a rectal tube in place. Will continue to follow closely and make recommendations as appropriate. Recommendations: 1) Continuous TF via OG tube using Vital AF with goal rate of 70 mL/hr to provide: 1680 mL total volume/day, 2016 kcal, 126 g protein, and 1362 mL water 2) Additional 200 mL water flush Q4H 3) Prealbumin q Friday/ 4) Daily weights 5) Bowel care per rx 6) Monitor for refeeding syndrome in view of prolonged poor nutrition status Addendum: 04/26/21 at [address] Amended: Links added.
[2021-04-26 11:44] LABS: UA EOSINOPHILS RARE EOS /HPF
[2021-04-26 12:01] LABS: TOTAL PROTEIN,URINE RANDOM 55.4 MG/DL
[2021-04-26] MEDS: famotidine/PF 10 mg/ml inj IV SCH ×2 (15:34→20:26)
[2021-04-26 18:19] LABS: MAGNESIUM 1.8 MG/DL (1.5-2.4); PHOSPHORUS 3.7 MG/DL (2.3-4.5); POTASSIUM 3.7 MMOL/L (3.5-5.1)
--- NOTE | 2021-04-26 18:26 | NUR ---
increased uo- lyes checked.
--- NOTE | 2021-04-26 19:26 | NUR ---
Patient in room ICU 2037. I have received report from Shu MEJIA and had the opportunity to ask questions and assume patient care. Addendum: 04/26/21 at 7 by Susanna Rivera RN Amended: Links added.
[2021-04-26] MEDS: mineral oil/petrolatum ophthal oint EACHEYE SCH (20:00)
[2021-04-26] MEDS: insulin glargine (Lantus) pen - multi-dose SQ SCH (21:00)
[2021-04-27] VITALS (23 sets, daily range): BP systolic 88–131; BP diastolic 49–89
[2021-04-27] MEDS: piperacillin/tazo 3.375gm/50ml 50 ML IV SCH ×3 (00:59→15:38)
[2021-04-27] MEDS: FENTANYL-0.9 % NACL/PF 100 ML IV PRN (02:41)
[2021-04-27] MEDS: mineral oil/petrolatum ophthal oint EACHEYE SCH ×4 (02:41→19:44)
[2021-04-27] MEDS: ipratropium/albuterol 3ml nebule NEB SCH ×6 (03:14→23:25)
[2021-04-27 03:20] LABS: BASOPHILS # (AUTO) 0.1 X10'3 (0-0.2); BASOPHILS % (AUTO) 1.1 % (0-1); EOSINOPHILS # (AUTO) 0.4 X10'3 (0-0.9); EOSINOPHILS % (AUTO) 3.7 % (0-6); HEMOGLOBIN 9.1 g/dl (12.0-16.0); LYMPHOCYTES # (AUTO) 1.1 X10'3 (1.1-4.8); LYMPHOCYTES % (AUTO) 11.5 % (21-51); MEAN CORPUSCULAR HEMOGLOBIN 26.6 PG (27.0-31.0); MEAN CORPUSCULAR HGB CONC 31.3 g/dL (33.0-36.5); MEAN CORPUSCULAR VOLUME 85.2 FL (78-98); MEAN PLATELET VOLUME 7.8 FL (7.4-10.4); MONOCYTES # (AUTO) 0.8 X10'3 (0-0.9); MONOCYTES % (AUTO) 7.9 % (2-12); NEUTROPHILS # (AUTO) 7.4 X10'3 (1.8-7.7); NEUTROPHILS % (AUTO) 75.8 % (42-75); PLATELET COUNT 153 X10'3 (140-440); RED CELL DISTRIBUTION WIDTH 21.9 % (11.5-14.5); WHITE BLOOD COUNT 9.8 X10'3 (4.5-11.0)
[2021-04-27 03:31] LABS: ABG BASE EXCESS 4.7 mmol/L (-2.0-2.0); ABG HCO3 27.8 mmol/L (22.0-26.0); ABG OXYGEN SATURATION 97.6 % (94-97); ABG PCO2 (T) 35.5 mmHg (32.0-45.0); ABG PO2 (T) 107.8 mmHg (75.0-100.0); ALLEN'S TEST POSITIVE; FCOHb 1.3 % (0.0-3.9); FMetHb 0.3 % (0.0-1.5); PEEP 10 cm H2O; RESPIRATORY RATE 18 b/min; TIDAL VOLUME 350 mL; TOTAL HEMOGLOBIN 10.3 G/dl (12.0-16.0)
[2021-04-27 03:32] LABS: ALANINE AMINOTRANSFERASE 107 U/L (12-78); ALBUMIN 2.7 G/DL (3.4-5.0); ALBUMIN/GLOBULIN RATIO 0.8 (1.1-1.5); ALKALINE PHOSPHATASE 61 IU/L (46-116); ANION GAP 11 (8-16); ASPARTATE AMINO TRANSFERASE 144 U/L (10-37); BLOOD UREA NITROGEN 26 MG/DL (7-18); BUN/CREATININE RATIO 14.9 (6.6-38.0); CALCIUM 7.7 MG/DL (8.5-10.1); CHLORIDE 111 MMOL/L (99-107); CREATININE 1.75 MG/DL (0.40-0.90); GLUCOSE 107 MG/DL (70-104); MAGNESIUM 1.7 MG/DL (1.5-2.4); PHOSPHORUS 3.2 MG/DL (2.3-4.5); POTASSIUM 3.2 MMOL/L (3.5-5.1); PREALBUMIN 8.4 MG/DL (19-36); SODIUM 150 MMOL/L (135-145); TOTAL CARBON DIOXIDE 27.9 MMOL/L (24-32); eGFR 30 ML/MIN
[2021-04-27] MEDS: midazolam 100mg in NS 100ml 100 ML IV PRN (04:34)
--- NOTE | 2021-04-27 04:44 | NUR ---
Dr. Nunez updated on patient's current condition. No new orders at this time.
[2021-04-27] MEDS: POTASSIUM BICARB 20meq eff tab 20 MEQ TABLET.EFF PO PRN ×3 (05:43→12:07)
[2021-04-27 06:14] LABS: ANISOCYTOSIS 3+; ELLIPTOCYTES 1+; MICROCYTOSIS 1+; PLATELET ESTIMATE NORMAL; POIKILOCYTOSIS 1+
--- NOTE | 2021-04-27 06:17 | NUR ---
Problems reprioritized. Patient report given, questions answered & plan of care reviewed with Shu MEJIA.
--- NOTE | 2021-04-27 06:30 | NUR ---
Patient in room ICU 2037. I have received report from hira and had the opportunity to ask questions and assume patient care.
[2021-04-27] MEDS: famotidine/PF 10 mg/ml inj IV SCH ×2 (07:20→19:43)
[2021-04-27] MEDS: lactulose 20gm/30ml cup PO SCH ×2 (07:20→19:43)
[2021-04-27] MEDS: MULTIVIT-MIN/FERROUS GLUCONATE 9 MG/15 ML LIQUID PO SCH (07:20)
[2021-04-27] MEDS: cholecalciferol (vitamin D3) 1,000 unit (25mcg) tablet NG SCH (07:21)
[2021-04-27] MEDS: lactobacillus rhamnosus 10,000 MMU CELLS/CAPSULE PO SCH ×2 (07:21→19:44)
[2021-04-27] MEDS: apixaban 5mg tablet PO SCH ×2 (07:21→19:44)
[2021-04-27] MEDS: thiamine 100mg tablet PO SCH (07:21)
[2021-04-27] MEDS: folic acid 1mg tablet PO SCH (07:21)
[2021-04-27] MEDS: mineral oil/petrolatum, white cream 113gm jar TP SCH ×2 (07:23→19:44)
[2021-04-27] MEDS: vitamin A & D ointment-NF 1 APPLIC TUBE TP PRN (07:23)
--- NOTE | 2021-04-27 09:00 | NUR ---
pt slightly more responsive to pain- grimaces with oral care and changing toe dressings. will not follow commands or open eyes.
--- NOTE | 2021-04-27 10:15 | NUR ---
pt hr to 107, sbp stable- monitor changes with st elevation- ekg ordered, strips printed. dr mason notified.
--- NOTE | 2021-04-27 10:30 | NUR ---
ekg noted by dr mason. troponin ordered and drawn. asa given. norbert li notified- dr vasquez is out of town. pt returned quickly to sr- with noted st elevation in v3.
[2021-04-27] MEDS ORDERED: aspirin 81mg tab.chew PO ONE (11:00)
--- NOTE | 2021-04-27 11:15 | NUR ---
norbert li here- updated. reported to Hugo.
[2021-04-27] MEDS: NORepinephrine 8mg/ 250ml NS 250 ML IV PRN (15:16)
--- NOTE | 2021-04-27 18:18 | NUR ---
Problems reprioritized. Patient report given, questions answered & plan of care reviewed with Declan MEJIA.
[2021-04-27] MEDS: insulin glargine (Lantus) pen - multi-dose SQ SCH (21:00)
[2021-04-28] VITALS (24 sets, daily range): BP systolic 97–140; BP diastolic 56–93
[2021-04-28] MEDS: piperacillin/tazo 3.375gm/50ml 50 ML IV SCH ×3 (00:07→15:07)
[2021-04-28] MEDS: mineral oil/petrolatum ophthal oint EACHEYE SCH ×4 (02:00→21:04)
[2021-04-28 03:21] LABS: BASOPHILS # (AUTO) 0.1 X10'3 (0-0.2); BASOPHILS % (AUTO) 1.1 % (0-1); EOSINOPHILS # (AUTO) 0.3 X10'3 (0-0.9); HEMOGLOBIN 8.5 g/dl (12.0-16.0); LYMPHOCYTES # (AUTO) 1.3 X10'3 (1.1-4.8); LYMPHOCYTES % (AUTO) 14.9 % (21-51); MEAN CORPUSCULAR HEMOGLOBIN 26.7 PG (27.0-31.0); MEAN CORPUSCULAR HGB CONC 31.5 g/dL (33.0-36.5); MEAN CORPUSCULAR VOLUME 84.7 FL (78-98); MEAN PLATELET VOLUME 7.7 FL (7.4-10.4); MONOCYTES # (AUTO) 0.7 X10'3 (0-0.9); NEUTROPHILS # (AUTO) 6.2 X10'3 (1.8-7.7); PLATELET COUNT 135 X10'3 (140-440); RED BLOOD COUNT 3.19 X10'6 (4.20-5.60); RED CELL DISTRIBUTION WIDTH 22.6 % (11.5-14.5); WHITE BLOOD COUNT 8.6 X10'3 (4.5-11.0)
[2021-04-28 03:41] LABS: ABG BASE EXCESS 3.7 mmol/L (-2.0-2.0); ABG HCO3 27.2 mmol/L (22.0-26.0); ABG OXYGEN SATURATION 92.8 % (94-97); ABG PCO2 (T) 35.9 mmHg (32.0-45.0); ABG PO2 (T) 62.5 mmHg (75.0-100.0); ALLEN'S TEST POSITIVE; FCOHb 0.8 % (0.0-3.9); FMetHb 0.2 % (0.0-1.5); FO2Hb 91.9 % (94-97); PATIENT TEMPERATURE 36.8; PEEP 5 cm H2O; RESPIRATORY RATE 16 b/min; TIDAL VOLUME 350 mL
[2021-04-28 03:43] LABS: ALANINE AMINOTRANSFERASE 110 U/L (12-78); ALBUMIN 2.4 G/DL (3.4-5.0); ALBUMIN/GLOBULIN RATIO 0.7 (1.1-1.5); ALKALINE PHOSPHATASE 59 IU/L (46-116); ANION GAP 10 (8-16); ASPARTATE AMINO TRANSFERASE 127 U/L (10-37); BLOOD UREA NITROGEN 23 MG/DL (7-18); BUN/CREATININE RATIO 13.2 (6.6-38.0); CALCIUM 7.3 MG/DL (8.5-10.1); CHLORIDE 111 MMOL/L (99-107); CREATININE 1.74 MG/DL (0.40-0.90); GLUCOSE 106 MG/DL (70-104); MAGNESIUM 1.7 MG/DL (1.5-2.4); POTASSIUM 3.6 MMOL/L (3.5-5.1); SODIUM 150 MMOL/L (135-145); TOTAL CARBON DIOXIDE 28.7 MMOL/L (24-32); eGFR 30 ML/MIN
[2021-04-28] MEDS: ipratropium/albuterol 3ml nebule NEB SCH ×6 (03:48→23:06)
[2021-04-28] MEDS: midazolam 100mg in NS 100ml 100 ML IV PRN ×3 (04:21→23:14)
[2021-04-28] MEDS: FENTANYL-0.9 % NACL/PF 100 ML IV PRN ×3 (04:21→21:08)
[2021-04-28 04:45] LABS: ANISOCYTOSIS 3+; BURR CELLS FEW; MICROCYTOSIS 1+; PLATELET ESTIMATE NORMAL; POIKILOCYTOSIS 1+
[2021-04-28 04:46] LABS: ELLIPTOCYTES 1+; POLYCHROMASIA FEW
--- NOTE | 2021-04-28 06:00 | NUR ---
Patient in room ICU 2037. I have received report from Declan MEJIA and had the opportunity to ask questions and assume patient care.
[2021-04-28] MEDS: famotidine/PF 10 mg/ml inj IV SCH ×2 (07:29→21:04)
[2021-04-28] MEDS: lactulose 20gm/30ml cup PO SCH ×2 (07:29→21:04)
[2021-04-28] MEDS: folic acid 1mg tablet PO SCH (07:29)
[2021-04-28] MEDS: cholecalciferol (vitamin D3) 1,000 unit (25mcg) tablet NG SCH (07:29)
[2021-04-28] MEDS: MULTIVIT-MIN/FERROUS GLUCONATE 9 MG/15 ML LIQUID PO SCH (07:29)
[2021-04-28] MEDS: thiamine 100mg tablet PO SCH (07:29)
[2021-04-28] MEDS: lactobacillus rhamnosus 10,000 MMU CELLS/CAPSULE PO SCH ×2 (07:29→21:04)
[2021-04-28] MEDS: apixaban 5mg tablet PO SCH ×2 (07:29→21:05)
--- NOTE | 2021-04-28 07:30 | NUR ---
Tried to reach out to daughter Neetu over the phone, Dr. Wheeler's request to talk about pt's declining status. Unable to get ahold of anyone. Will try again later.
[2021-04-28] MEDS: mineral oil/petrolatum, white cream 113gm jar TP SCH ×2 (07:45→21:05)
[2021-04-28 10:28] LABS: ABG BASE EXCESS -2.1 mmol/L (-2.0-2.0); ABG HCO3 26.5 mmol/L (22.0-26.0); ABG OXYGEN SATURATION 92.5 % (94-97); ABG PCO2 (T) 68.5 mmHg (32.0-45.0); ABG PO2 (T) 83.7 mmHg (75.0-100.0); ALLEN'S TEST POSITIVE; FCOHb 0.5 % (0.0-3.9); FMetHb 0.4 % (0.0-1.5); FO2Hb 91.7 % (94-97); PEEP 5 cm H2O; RESPIRATORY RATE 16 b/min; TOTAL HEMOGLOBIN 9.8 G/dl (12.0-16.0)
--- NOTE | 2021-04-28 11:00 | NUR ---
Dr. Wheeler called regarding pt expiratory volume low, minute ventilation low, using accessory muscles to breath, FiO2 increased to 100%. MD ordered nimbex and stat chest xray. Respiratory at bedside adjusting vent.
[2021-04-28] MEDS ORDERED: CISatracurium besylate inj. 100 MG in normal saline 100ml IV soln 90 ML IV PRN (11:30)
--- NOTE | 2021-04-28 13:00 | NUR ---
Another attempted call to daughter Galindo was made but no answer.
[2021-04-28 15:56] LABS: ABG BASE EXCESS 2.3 mmol/L (-2.0-2.0); ABG HCO3 25.3 mmol/L (22.0-26.0); ABG OXYGEN SATURATION 99.5 % (94-97); ABG PCO2 (T) 32.9 mmHg (32.0-45.0); ALLEN'S TEST POSITIVE; FCOHb 0.3 % (0.0-3.9); FMetHb 0.5 % (0.0-1.5); FO2Hb 98.7 % (94-97); PATIENT TEMPERATURE 37.1; PEEP 5 cm H2O; RESPIRATORY RATE 16 b/min; TIDAL VOLUME 400 mL; TOTAL HEMOGLOBIN 9.1 G/dl (12.0-16.0)
[2021-04-28] MEDS: NORepinephrine 8mg/ 250ml NS 250 ML IV PRN (16:01)
--- NOTE | 2021-04-28 18:30 | NUR ---
Patient in room ICU 2037. I have received report from Oralia MEJIA and had the opportunity to ask questions and assume patient care. Addendum: 04/28/21 at 1853 by Susanna Rivera RN Amended: Links added.
[2021-04-28] MEDS: insulin glargine (Lantus) pen - multi-dose SQ SCH (21:00)
[2021-04-28 22:18] LABS: ABG BASE EXCESS 0.5 mmol/L (-2.0-2.0); ABG HCO3 25.8 mmol/L (22.0-26.0); ABG OXYGEN SATURATION 98.9 % (94-97); ABG PCO2 (T) 44.8 mmHg (32.0-45.0); ABG PO2 (T) 155.9 mmHg (75.0-100.0); ALLEN'S TEST POSITIVE; FCOHb 0.2 % (0.0-3.9); FMetHb 0.5 % (0.0-1.5); FO2Hb 98.2 % (94-97); PEEP 5 cm H2O; RESPIRATORY RATE 14 b/min; TIDAL VOLUME 400 mL; TOTAL HEMOGLOBIN 9.9 G/dl (12.0-16.0)
--- NOTE | 2021-04-28 22:44 | NUR ---
Patient desatted during linen change. Peak pressuring on ventilator, not getting volumes. Bagged briefly, sats recovered. ABG obtained. Dr. Alba notified, orders received. Changed to PRVC. Sats maintained on 80% FiO2 at this time. Will continue to monitor.
[2021-04-29] VITALS (24 sets, daily range): BP systolic 95–108; BP diastolic 53–65
[2021-04-29] MEDS: piperacillin/tazo 3.375gm/50ml 50 ML IV SCH ×3 (00:47→16:57)
[2021-04-29] MEDS: FENTANYL-0.9 % NACL/PF 100 ML IV PRN ×4 (01:06→16:56)
[2021-04-29] MEDS: mineral oil/petrolatum ophthal oint EACHEYE SCH ×4 (02:18→21:20)
[2021-04-29 02:45] LABS: BASOPHILS # (AUTO) 0.1 X10'3 (0-0.2); BASOPHILS % (AUTO) 0.6 % (0-1); EOSINOPHILS # (AUTO) 0.3 X10'3 (0-0.9); EOSINOPHILS % (AUTO) 3.8 % (0-6); HEMATOCRIT 26.3 % (35.0-45.0); HEMOGLOBIN 8.4 g/dl (12.0-16.0); LYMPHOCYTES # (AUTO) 0.9 X10'3 (1.1-4.8); LYMPHOCYTES % (AUTO) 9.8 % (21-51); MEAN CORPUSCULAR HGB CONC 31.8 g/dL (33.0-36.5); MEAN CORPUSCULAR VOLUME 84.9 FL (78-98); MEAN PLATELET VOLUME 7.5 FL (7.4-10.4); MONOCYTES # (AUTO) 0.7 X10'3 (0-0.9); NEUTROPHILS # (AUTO) 6.9 X10'3 (1.8-7.7); NEUTROPHILS % (AUTO) 77.8 % (42-75); PLATELET COUNT 101 X10'3 (140-440); RED CELL DISTRIBUTION WIDTH 22.3 % (11.5-14.5); WHITE BLOOD COUNT 8.9 X10'3 (4.5-11.0)
[2021-04-29 03:15] LABS: ALANINE AMINOTRANSFERASE 102 U/L (12-78); ALBUMIN 2.1 G/DL (3.4-5.0); ALBUMIN/GLOBULIN RATIO 0.6 (1.1-1.5); ALKALINE PHOSPHATASE 54 IU/L (46-116); ANION GAP 8 (8-16); ASPARTATE AMINO TRANSFERASE 115 U/L (10-37); BILIRUBIN,TOTAL 1.5 MG/DL (0.1-1.0); BLOOD UREA NITROGEN 18 MG/DL (7-18); BUN/CREATININE RATIO 12.8 (6.6-38.0); CALCIUM 7.1 MG/DL (8.5-10.1); CHLORIDE 113 MMOL/L (99-107); CREATININE 1.41 MG/DL (0.40-0.90); GLUCOSE 125 MG/DL (70-104); MAGNESIUM 1.6 MG/DL (1.5-2.4); PHOSPHORUS 2.7 MG/DL (2.3-4.5); POTASSIUM 3.4 MMOL/L (3.5-5.1); SODIUM 149 MMOL/L (135-145); TOTAL CARBON DIOXIDE 27.6 MMOL/L (24-32); TOTAL PROTEIN 5.8 G/DL (6.4-8.2); eGFR 38 ML/MIN
[2021-04-29] MEDS: ipratropium/albuterol 3ml nebule NEB SCH ×6 (03:23→23:19)
[2021-04-29 03:44] LABS: ABG BASE EXCESS 4.1 mmol/L (-2.0-2.0); ABG HCO3 28.4 mmol/L (22.0-26.0); ABG OXYGEN SATURATION 96.2 % (94-97); ABG PCO2 (T) 41.3 mmHg (32.0-45.0); ABG PO2 (T) 80.7 mmHg (75.0-100.0); ALLEN'S TEST POSITIVE; FCOHb 0.6 % (0.0-3.9); FMetHb 0.4 % (0.0-1.5); FO2Hb 95.2 % (94-97); PATIENT TEMPERATURE 36.8; PEEP 5 cm H2O; RESPIRATORY RATE 14 b/min; TIDAL VOLUME 400 mL; TOTAL HEMOGLOBIN 9.1 G/dl (12.0-16.0)
[2021-04-29] MEDS: POTASSIUM BICARB 20meq eff tab 20 MEQ TABLET.EFF PO PRN (04:04)
[2021-04-29] MEDS: midazolam 100mg in NS 100ml 100 ML IV PRN ×3 (04:05→16:57)
--- NOTE | 2021-04-29 04:47 | NUR ---
Dr. Garcia updated on patient's current status. No new orders at this time other than restraint renewal.
--- NOTE | 2021-04-29 06:18 | NUR ---
Problems reprioritized. Patient report given, questions answered & plan of care reviewed with Antonio MEJIA.
[2021-04-29] MEDS: lactulose 20gm/30ml cup PO SCH ×2 (07:58→21:19)
[2021-04-29] MEDS: MULTIVIT-MIN/FERROUS GLUCONATE 9 MG/15 ML LIQUID PO SCH (07:58)
[2021-04-29] MEDS: thiamine 100mg tablet PO SCH (07:59)
[2021-04-29] MEDS: cholecalciferol (vitamin D3) 1,000 unit (25mcg) tablet NG SCH (07:59)
[2021-04-29] MEDS: lactobacillus rhamnosus 10,000 MMU CELLS/CAPSULE PO SCH ×2 (07:59→21:20)
[2021-04-29] MEDS: famotidine/PF 10 mg/ml inj IV SCH ×2 (07:59→21:19)
[2021-04-29] MEDS: folic acid 1mg tablet PO SCH (07:59)
[2021-04-29] MEDS: apixaban 5mg tablet PO SCH ×2 (07:59→21:20)
[2021-04-29] MEDS: mineral oil/petrolatum, white cream 113gm jar TP SCH ×2 (08:00→21:20)
--- NOTE | 2021-04-29 10:47 | NUR ---
Reassessment: Pt remains intubated and tolerating TF at goal rate with GRV WNL. No signs of refeeding at this time. Serum Na elevated at 149 MMOL/L, pt receiving 200 mL water flushes Q4H. LBM 6/4 per I&O. Receiving routine Lactulose with additional PRN bowel care available. No changes to nutrition intervention recommendations at this time. Will continue to follow closely. Recommendations: 1) Continuous TF via OG tube using Vital AF with goal rate of 70 mL/hr to provide: 1680 mL total volume/day, 2016 kcal, 126 g protein, and 1362 mL water 2) Additional 200 mL water flush Q4H 3) Prealbumin q Friday/ 4) Daily weights 5) Bowel care per rx 6) Monitor for refeeding syndrome in view of prolonged poor nutrition status Addendum: 04/29/21 at [address] Amended: Links added.
--- NOTE | 2021-04-29 18:24 | NUR ---
Problems reprioritized. Patient report given, questions answered & plan of care reviewed with ROBERTO Mullins.
--- NOTE | 2021-04-29 18:30 | NUR ---
Patient in room ICU 2037. I have received report from Antonio MEJIA and had the opportunity to ask questions and assume patient care. Addendum: 04/29/21 at 2218 by Susanna Rivera RN Amended: Links added.
[2021-04-29] MEDS: insulin glargine (Lantus) pen - multi-dose SQ SCH (21:00)
[2021-04-30] VITALS (24 sets, daily range): BP systolic 93–110; BP diastolic 47–65
[2021-04-30] MEDS: FENTANYL-0.9 % NACL/PF 100 ML IV PRN (01:21)
[2021-04-30] MEDS: piperacillin/tazo 3.375gm/50ml 50 ML IV SCH ×3 (01:30→16:32)
[2021-04-30] MEDS: mineral oil/petrolatum ophthal oint EACHEYE SCH ×4 (02:00→19:57)
[2021-04-30 02:21] LABS: BASOPHILS # (AUTO) 0.1 X10'3 (0-0.2); BASOPHILS % (AUTO) 0.7 % (0-1); EOSINOPHILS # (AUTO) 0.2 X10'3 (0-0.9); EOSINOPHILS % (AUTO) 2.9 % (0-6); HEMATOCRIT 27.4 % (35.0-45.0); HEMOGLOBIN 8.4 g/dl (12.0-16.0); LYMPHOCYTES % (AUTO) 12.5 % (21-51); MEAN CORPUSCULAR HEMOGLOBIN 26.4 PG (27.0-31.0); MEAN CORPUSCULAR HGB CONC 30.5 g/dL (33.0-36.5); MEAN CORPUSCULAR VOLUME 86.6 FL (78-98); MEAN PLATELET VOLUME 7.7 FL (7.4-10.4); MONOCYTES # (AUTO) 0.8 X10'3 (0-0.9); NEUTROPHILS # (AUTO) 5.8 X10'3 (1.8-7.7); NEUTROPHILS % (AUTO) 73.9 % (42-75); PLATELET COUNT 87 X10'3 (140-440); RED BLOOD COUNT 3.17 X10'6 (4.20-5.60); RED CELL DISTRIBUTION WIDTH 23.5 % (11.5-14.5); WHITE BLOOD COUNT 7.9 X10'3 (4.5-11.0)
[2021-04-30 02:49] LABS: ALANINE AMINOTRANSFERASE 76 U/L (12-78); ALBUMIN/GLOBULIN RATIO 0.5 (1.1-1.5); ALKALINE PHOSPHATASE 56 IU/L (46-116); ANION GAP 8 (8-16); ASPARTATE AMINO TRANSFERASE 72 U/L (10-37); BILIRUBIN,TOTAL 1.2 MG/DL (0.1-1.0); BLOOD UREA NITROGEN 15 MG/DL (7-18); BUN/CREATININE RATIO 12.5 (6.6-38.0); CALCIUM 7.3 MG/DL (8.5-10.1); CHLORIDE 113 MMOL/L (99-107); GLUCOSE 106 MG/DL (70-104); MAGNESIUM 1.6 MG/DL (1.5-2.4); PHOSPHORUS 2.7 MG/DL (2.3-4.5); POTASSIUM 3.7 MMOL/L (3.5-5.1); SODIUM 148 MMOL/L (135-145); TOTAL CARBON DIOXIDE 26.9 MMOL/L (24-32); TOTAL PROTEIN 5.8 G/DL (6.4-8.2); eGFR 46 ML/MIN
[2021-04-30] MEDS: ipratropium/albuterol 3ml nebule NEB SCH ×6 (03:18→23:12)
[2021-04-30 03:29] LABS: ABG BASE EXCESS 1.3 mmol/L (-2.0-2.0); ABG HCO3 25.9 mmol/L (22.0-26.0); ABG OXYGEN SATURATION 95.8 % (94-97); ABG PCO2 (T) 40.7 mmHg (32.0-45.0); ABG PO2 (T) 78.5 mmHg (75.0-100.0); ALLEN'S TEST POSITIVE; FCOHb 0.7 % (0.0-3.9); FMetHb 0.4 % (0.0-1.5); FO2Hb 94.7 % (94-97); PATIENT TEMPERATURE 36.9; PEEP 5 cm H2O; RESPIRATORY RATE 14 b/min; TIDAL VOLUME 400 mL; TOTAL HEMOGLOBIN 8.9 G/dl (12.0-16.0)
[2021-04-30] MEDS: midazolam 100mg in NS 100ml 100 ML IV PRN (03:40)
--- NOTE | 2021-04-30 03:53 | NUR ---
Titrating Levophed per MD order. Will continue to monitor closely
[2021-04-30] MEDS: NORepinephrine 8mg/ 250ml NS 250 ML IV PRN (05:28)
--- NOTE | 2021-04-30 06:22 | NUR ---
Problems reprioritized. Patient report given, questions answered & plan of care reviewed with Antonio MEJIA.
[2021-04-30] MEDS: cholecalciferol (vitamin D3) 1,000 unit (25mcg) tablet NG SCH (08:26)
[2021-04-30] MEDS: lactobacillus rhamnosus 10,000 MMU CELLS/CAPSULE PO SCH ×2 (08:27→19:56)
[2021-04-30] MEDS: thiamine 100mg tablet PO SCH (08:27)
[2021-04-30] MEDS: famotidine/PF 10 mg/ml inj IV SCH ×2 (08:27→19:56)
[2021-04-30] MEDS: MULTIVIT-MIN/FERROUS GLUCONATE 9 MG/15 ML LIQUID PO SCH (08:27)
[2021-04-30] MEDS: lactulose 20gm/30ml cup PO SCH (08:27)
[2021-04-30] MEDS: apixaban 5mg tablet PO SCH ×2 (08:27→19:56)
[2021-04-30] MEDS: folic acid 1mg tablet PO SCH (08:27)
[2021-04-30] MEDS: mineral oil/petrolatum, white cream 113gm jar TP SCH ×2 (16:32→19:57)
--- NOTE | 2021-04-30 18:28 | NUR ---
Problems reprioritized. Patient report given, questions answered & plan of care reviewed with ROBERTO Campbell.
--- NOTE | 2021-04-30 18:30 | NUR ---
Patient in room ICU 2037. I have received report from ROBERTO Chong and had the opportunity to ask questions and assume patient care.
--- NOTE | 2021-04-30 19:42 | NUR ---
Sister updated on plan of care.
[2021-04-30] MEDS: insulin glargine (Lantus) pen - multi-dose SQ SCH (20:00)
[2021-05-01] VITALS (24 sets, daily range): BP systolic 81–120; BP diastolic 49–70
[2021-05-01] MEDS: piperacillin/tazo 3.375gm/50ml 50 ML IV SCH ×4 (01:43→23:14)
[2021-05-01] MEDS: mineral oil/petrolatum ophthal oint EACHEYE SCH ×4 (01:43→19:57)
[2021-05-01 03:04] LABS: BASOPHILS % (AUTO) 0.5 % (0-1); EOSINOPHILS # (AUTO) 0.2 X10'3 (0-0.9); EOSINOPHILS % (AUTO) 2.8 % (0-6); HEMATOCRIT 27.8 % (35.0-45.0); HEMOGLOBIN 8.6 g/dl (12.0-16.0); LYMPHOCYTES # (AUTO) 0.7 X10'3 (1.1-4.8); MEAN CORPUSCULAR HEMOGLOBIN 26.6 PG (27.0-31.0); MEAN CORPUSCULAR HGB CONC 30.9 g/dL (33.0-36.5); MEAN CORPUSCULAR VOLUME 86.1 FL (78-98); MEAN PLATELET VOLUME 7.7 FL (7.4-10.4); MONOCYTES # (AUTO) 0.7 X10'3 (0-0.9); MONOCYTES % (AUTO) 8.4 % (2-12); NEUTROPHILS # (AUTO) 6.5 X10'3 (1.8-7.7); NEUTROPHILS % (AUTO) 79.3 % (42-75); PLATELET COUNT 82 X10'3 (140-440); RED BLOOD COUNT 3.23 X10'6 (4.20-5.60); RED CELL DISTRIBUTION WIDTH 23.1 % (11.5-14.5); WHITE BLOOD COUNT 8.2 X10'3 (4.5-11.0)
[2021-05-01 03:08] LABS: ALANINE AMINOTRANSFERASE 57 U/L (12-78); ALBUMIN 1.9 G/DL (3.4-5.0); ALBUMIN/GLOBULIN RATIO 0.5 (1.1-1.5); ALKALINE PHOSPHATASE 61 IU/L (46-116); ANION GAP 5 (8-16); ASPARTATE AMINO TRANSFERASE 48 U/L (10-37); BILIRUBIN,TOTAL 1.1 MG/DL (0.1-1.0); BLOOD UREA NITROGEN 12 MG/DL (7-18); BUN/CREATININE RATIO 12.4 (6.6-38.0); CALCIUM 7.3 MG/DL (8.5-10.1); CHLORIDE 114 MMOL/L (99-107); CREATININE 0.97 MG/DL (0.40-0.90); GLUCOSE 104 MG/DL (70-104); MAGNESIUM 1.7 MG/DL (1.5-2.4); PHOSPHORUS 2.6 MG/DL (2.3-4.5); POTASSIUM 3.9 MMOL/L (3.5-5.1); SODIUM 147 MMOL/L (135-145); TOTAL CARBON DIOXIDE 27.8 MMOL/L (24-32); TOTAL PROTEIN 5.9 G/DL (6.4-8.2); eGFR 58 ML/MIN
[2021-05-01] MEDS: ipratropium/albuterol 3ml nebule NEB SCH ×6 (03:10→23:12)
[2021-05-01 03:28] LABS: ABG BASE EXCESS 1.8 mmol/L (-2.0-2.0); ABG HCO3 26.9 mmol/L (22.0-26.0); ABG OXYGEN SATURATION 96.5 % (94-97); ABG PCO2 (T) 45.5 mmHg (32.0-45.0); ABG PO2 (T) 88.3 mmHg (75.0-100.0); ALLEN'S TEST POSITIVE; FCOHb 0.7 % (0.0-3.9); FMetHb 0.3 % (0.0-1.5); FO2Hb 95.5 % (94-97); PATIENT TEMPERATURE 37.2; PEEP 5 cm H2O; RESPIRATORY RATE 14 b/min; TIDAL VOLUME 400 mL; TOTAL HEMOGLOBIN 9.2 G/dl (12.0-16.0)
[2021-05-01 04:08] LABS: ANISOCYTOSIS 3+; PLATELET ESTIMATE DECREASED
[2021-05-01 04:09] LABS: ELLIPTOCYTES FEW
--- NOTE | 2021-05-01 06:17 | NUR ---
Problems reprioritized. Patient report given, questions answered & plan of care reviewed with ROBERTO Chong.
[2021-05-01] MEDS: MULTIVIT-MIN/FERROUS GLUCONATE 9 MG/15 ML LIQUID PO SCH (08:12)
[2021-05-01] MEDS: mineral oil/petrolatum, white cream 113gm jar TP SCH ×2 (08:12→19:57)
[2021-05-01] MEDS: famotidine/PF 10 mg/ml inj IV SCH ×2 (08:12→19:57)
[2021-05-01] MEDS: thiamine 100mg tablet PO SCH (08:13)
[2021-05-01] MEDS: folic acid 1mg tablet PO SCH (08:13)
[2021-05-01] MEDS: cholecalciferol (vitamin D3) 1,000 unit (25mcg) tablet NG SCH (08:13)
[2021-05-01] MEDS: apixaban 5mg tablet PO SCH ×2 (08:13→19:57)
[2021-05-01] MEDS: lactobacillus rhamnosus 10,000 MMU CELLS/CAPSULE PO SCH ×2 (08:14→19:57)
--- NOTE | 2021-05-01 17:56 | NUR ---
Pt scheduled for surgery in AM. Dr. Adam stated that he will discuss with pt's daughter Franny. Spoke with Franny and told her to anticipate a call from Dr. Adam this evening. Pt expressed her wish for Franny to be her medical decision maker if she is unable. Addendum: 05/01/21 at 1825 by Castillo Morse RN Note placed in wrong pt chart.
--- NOTE | 2021-05-01 18:24 | NUR ---
Problems reprioritized. Patient report given, questions answered & plan of care reviewed with ROBERTO Campbell.
--- NOTE | 2021-05-01 18:30 | NUR ---
Patient in room ICU 2037. I have received report from ROBERTO Chong and had the opportunity to ask questions and assume patient care.
[2021-05-01] MEDS: insulin glargine (Lantus) pen - multi-dose SQ SCH (20:08)
[2021-05-02] VITALS (24 sets, daily range): BP systolic 92–142; BP diastolic 54–87
[2021-05-02] MEDS: mineral oil/petrolatum ophthal oint EACHEYE SCH ×4 (02:56→20:00)
[2021-05-02] MEDS: ipratropium/albuterol 3ml nebule NEB SCH ×6 (03:01→23:15)
[2021-05-02 03:17] LABS: BASOPHILS % (AUTO) 0.3 % (0-1); EOSINOPHILS # (AUTO) 0.1 X10'3 (0-0.9); EOSINOPHILS % (AUTO) 1.5 % (0-6); HEMATOCRIT 26.7 % (35.0-45.0); HEMOGLOBIN 8.3 g/dl (12.0-16.0); LYMPHOCYTES # (AUTO) 0.8 X10'3 (1.1-4.8); LYMPHOCYTES % (AUTO) 10.9 % (21-51); MEAN CORPUSCULAR HEMOGLOBIN 26.8 PG (27.0-31.0); MEAN CORPUSCULAR HGB CONC 31.2 g/dL (33.0-36.5); MEAN CORPUSCULAR VOLUME 85.7 FL (78-98); MONOCYTES # (AUTO) 0.7 X10'3 (0-0.9); MONOCYTES % (AUTO) 9.1 % (2-12); NEUTROPHILS # (AUTO) 6.1 X10'3 (1.8-7.7); NEUTROPHILS % (AUTO) 78.2 % (42-75); PLATELET COUNT 74 X10'3 (140-440); RED BLOOD COUNT 3.11 X10'6 (4.20-5.60); WHITE BLOOD COUNT 7.7 X10'3 (4.5-11.0)
[2021-05-02 03:19] LABS: ABG BASE EXCESS 1.7 mmol/L (-2.0-2.0); ABG HCO3 25.9 mmol/L (22.0-26.0); ABG PCO2 (T) 38.8 mmHg (32.0-45.0); ABG PO2 (T) 68.2 mmHg (75.0-100.0); ALLEN'S TEST POSITIVE; FCOHb 0.7 % (0.0-3.9); FMetHb 0.2 % (0.0-1.5); FO2Hb 93.2 % (94-97); PATIENT TEMPERATURE 37.2; PEEP 5 cm H2O; RESPIRATORY RATE 14 b/min; TIDAL VOLUME 400 mL; TOTAL HEMOGLOBIN 9.4 G/dl (12.0-16.0)
[2021-05-02 03:35] LABS: ALANINE AMINOTRANSFERASE 45 U/L (12-78); ALBUMIN 2.1 G/DL (3.4-5.0); ALBUMIN/GLOBULIN RATIO 0.5 (1.1-1.5); ALKALINE PHOSPHATASE 60 IU/L (46-116); ANION GAP 7 (8-16); ASPARTATE AMINO TRANSFERASE 39 U/L (10-37); BILIRUBIN,TOTAL 1.1 MG/DL (0.1-1.0); BLOOD UREA NITROGEN 15 MG/DL (7-18); BUN/CREATININE RATIO 15.5 (6.6-38.0); CALCIUM 7.8 MG/DL (8.5-10.1); CHLORIDE 110 MMOL/L (99-107); CREATININE 0.97 MG/DL (0.40-0.90); GLUCOSE 100 MG/DL (70-104); MAGNESIUM 1.8 MG/DL (1.5-2.4); PHOSPHORUS 2.6 MG/DL (2.3-4.5); POTASSIUM 4.1 MMOL/L (3.5-5.1); SODIUM 146 MMOL/L (135-145); TOTAL PROTEIN 6.3 G/DL (6.4-8.2); eGFR 58 ML/MIN
[2021-05-02 05:02] LABS: ANISOCYTOSIS 3+; ELLIPTOCYTES FEW; PLATELET ESTIMATE DECREASED; SCHISTOCYTES FEW
--- NOTE | 2021-05-02 06:48 | NUR ---
Problems reprioritized. Patient report given, questions answered & plan of care reviewed with ROBERTO King.
[2021-05-02] MEDS: MULTIVIT-MIN/FERROUS GLUCONATE 9 MG/15 ML LIQUID PO SCH (07:43)
[2021-05-02] MEDS: piperacillin/tazo 3.375gm/50ml 50 ML IV SCH ×3 (07:43→23:51)
[2021-05-02] MEDS: famotidine/PF 10 mg/ml inj IV SCH ×2 (07:43→20:00)
[2021-05-02] MEDS: cholecalciferol (vitamin D3) 1,000 unit (25mcg) tablet NG SCH (07:44)
[2021-05-02] MEDS: lactobacillus rhamnosus 10,000 MMU CELLS/CAPSULE PO SCH ×2 (07:45→20:00)
[2021-05-02] MEDS: folic acid 1mg tablet PO SCH (07:45)
[2021-05-02] MEDS: thiamine 100mg tablet PO SCH (07:45)
[2021-05-02] MEDS: apixaban 5mg tablet PO SCH ×2 (07:46→20:00)
[2021-05-02] MEDS: mineral oil/petrolatum, white cream 113gm jar TP SCH ×2 (07:50→20:00)
--- NOTE | 2021-05-02 11:09 | NUR ---
F/u 05/02: Pt TF held briefly yesterday for GRV 475 however restarted and tolerating at goal this AM w/ GRV WNL. Rectal tube -100ml output past 24 hours following 750ml previously though no longer receiving lactulose. Serum Na down to 146 from 149 prior w/ 200ml Q4H water flush addition. Pending family meeting at this time per RN at critical care rounds. Will continue to monitor. Recommendations: 1) Continuous TF via OG tube using Vital AF with goal rate of 70 mL/hr to provide: 1680 mL total volume/day, 2016 kcal, 126 g protein, and 1362 mL water 2) Additional 200 mL water flush Q4H 3) Prealbumin q Friday/; Daily weights 4) Bowel care per rx Addendum: 05/02/21 at [address] Amended: Links added.
[2021-05-02] MEDS: normal saline 1000ml 1,000 ML IV SCH (16:36)
--- NOTE | 2021-05-02 18:30 | NUR ---
Problems reprioritized. Patient report given, questions answered & plan of care reviewed with ROBERTO King.
[2021-05-02] MEDS: insulin glargine (Lantus) pen - multi-dose SQ SCH (21:00)
[2021-05-02] MEDS: dexmedetomidine/D5W 100mL 100 ML IV SCH (23:52)
[2021-05-03] VITALS (22 sets, daily range): BP systolic 82–130; BP diastolic 44–86
--- NOTE | 2021-05-03 01:00 | NUR ---
Skin tears found on skin early in the shift after patient's first bowel movement. two on sacrum with purple discoloration throughout; one skin tear on right posterior thigh. Pictures taken at this time and placed in chart.
[2021-05-03] MEDS: mineral oil/petrolatum ophthal oint EACHEYE SCH ×4 (02:44→21:10)
[2021-05-03] MEDS: ipratropium/albuterol 3ml nebule NEB SCH ×6 (02:59→23:18)
[2021-05-03 03:17] LABS: BASOPHILS % (AUTO) 0.5 % (0-1); EOSINOPHILS # (AUTO) 0.1 X10'3 (0-0.9); EOSINOPHILS % (AUTO) 1.2 % (0-6); HEMATOCRIT 24.4 % (35.0-45.0); HEMOGLOBIN 7.7 g/dl (12.0-16.0); LYMPHOCYTES # (AUTO) 0.7 X10'3 (1.1-4.8); LYMPHOCYTES % (AUTO) 8.5 % (21-51); MEAN CORPUSCULAR HEMOGLOBIN 27.1 PG (27.0-31.0); MEAN CORPUSCULAR HGB CONC 31.5 g/dL (33.0-36.5); MEAN CORPUSCULAR VOLUME 86.2 FL (78-98); MEAN PLATELET VOLUME 8.4 FL (7.4-10.4); MONOCYTES # (AUTO) 0.8 X10'3 (0-0.9); MONOCYTES % (AUTO) 9.6 % (2-12); NEUTROPHILS # (AUTO) 6.4 X10'3 (1.8-7.7); NEUTROPHILS % (AUTO) 80.2 % (42-75); PLATELET COUNT 75 X10'3 (140-440); RED BLOOD COUNT 2.83 X10'6 (4.20-5.60); RED CELL DISTRIBUTION WIDTH 23.4 % (11.5-14.5)
[2021-05-03 03:27] LABS: ALANINE AMINOTRANSFERASE 45 U/L (12-78); ALBUMIN 2.2 G/DL (3.4-5.0); ALBUMIN/GLOBULIN RATIO 0.5 (1.1-1.5); ALKALINE PHOSPHATASE 68 IU/L (46-116); ANION GAP 6 (8-16); ASPARTATE AMINO TRANSFERASE 37 U/L (10-37); BILIRUBIN,TOTAL 1.3 MG/DL (0.1-1.0); BLOOD UREA NITROGEN 16 MG/DL (7-18); CALCIUM 7.6 MG/DL (8.5-10.1); CHLORIDE 108 MMOL/L (99-107); CREATININE 0.89 MG/DL (0.40-0.90); GLUCOSE 97 MG/DL (70-104); SODIUM 143 MMOL/L (135-145); TOTAL CARBON DIOXIDE 28.7 MMOL/L (24-32); TOTAL PROTEIN 6.3 G/DL (6.4-8.2); eGFR 64 ML/MIN
[2021-05-03 03:44] LABS: ABG HCO3 24.7 mmol/L (22.0-26.0); ABG OXYGEN SATURATION 97.8 % (94-97); ABG PCO2 (T) 31.2 mmHg (32.0-45.0); ABG PO2 (T) 93.5 mmHg (75.0-100.0); FCOHb 0.6 % (0.0-3.9); FMetHb 0.3 % (0.0-1.5); FO2Hb 96.9 % (94-97); PEEP 5 cm H2O; RESPIRATORY RATE 14 b/min; TIDAL VOLUME 400 mL
[2021-05-03] MEDS: POTASSIUM BICARB 20meq eff tab 20 MEQ TABLET.EFF PO PRN ×2 (04:13→17:22)
--- NOTE | 2021-05-03 06:13 | NUR ---
Problems reprioritized. Patient report given, questions answered & plan of care reviewed with ROBERTO King.
[2021-05-03] MEDS: thiamine 100mg tablet PO SCH (07:46)
[2021-05-03] MEDS: cholecalciferol (vitamin D3) 1,000 unit (25mcg) tablet NG SCH (07:47)
[2021-05-03] MEDS: folic acid 1mg tablet PO SCH (07:47)
[2021-05-03] MEDS: lactobacillus rhamnosus 10,000 MMU CELLS/CAPSULE PO SCH ×2 (07:47→21:13)
[2021-05-03] MEDS: apixaban 5mg tablet PO SCH ×2 (07:48→21:13)
[2021-05-03] MEDS: famotidine/PF 10 mg/ml inj IV SCH ×2 (07:48→21:13)
[2021-05-03] MEDS: piperacillin/tazo 3.375gm/50ml 50 ML IV SCH ×3 (07:48→23:51)
[2021-05-03] MEDS: MULTIVIT-MIN/FERROUS GLUCONATE 9 MG/15 ML LIQUID PO SCH (07:48)
[2021-05-03] MEDS: dexmedetomidine/D5W 100mL 100 ML IV SCH ×4 (07:49→20:53)
[2021-05-03] MEDS: mineral oil/petrolatum, white cream 113gm jar TP SCH ×2 (08:00→21:10)
[2021-05-03] MEDS ORDERED: sod chloride 0.9% 10ml flush syringe IV ONE (08:00)
[2021-05-03] MEDS ORDERED: etomidate 2mg/ml inj. ONE (08:00)
--- NOTE | 2021-05-03 11:29 | NUR ---
informed dr Mccarthy re: urine output 10cc per hour, no new orders
[2021-05-03] MEDS: fentaNYL/PF 50MCG/1 ML 2ML syringe IV PRN ×2 (12:53→22:10)
[2021-05-03] MEDS ORDERED: midazolam 1 mg/ML 2ml injection IV ONE ×2 (13:00→20:00)
[2021-05-03] MEDS ORDERED: midazolam 1 mg/ML 2ml injection ONE (13:13)
[2021-05-03] MEDS: normal saline 1000ml 1,000 ML IV SCH (14:59)
[2021-05-03] MEDS ORDERED: furosemide 20 MG/2 ML vial IV ONE (20:00)
[2021-05-03] MEDS ORDERED: furosemide 40mg/4ml inj ONE (20:01)
[2021-05-03] MEDS: insulin glargine (Lantus) pen - multi-dose SQ SCH (21:00)
[2021-05-04] VITALS (31 sets, daily range): BP systolic 78–138; BP diastolic 48–78
[2021-05-04] MEDS: fentaNYL/PF 50MCG/1 ML 2ML syringe IV PRN ×5 (01:56→23:06)
[2021-05-04] MEDS: mineral oil/petrolatum ophthal oint EACHEYE SCH ×4 (01:57→18:52)
[2021-05-04] MEDS: dexmedetomidine/D5W 100mL 100 ML IV SCH ×6 (01:57→22:25)
[2021-05-04] MEDS ORDERED: midazolam 1 mg/ML 2ml injection IV ONE (02:10)
[2021-05-04 03:13] LABS: BASOPHILS % (AUTO) 0.5 % (0-1); EOSINOPHILS # (AUTO) 0.1 X10'3 (0-0.9); EOSINOPHILS % (AUTO) 1.6 % (0-6); LYMPHOCYTES # (AUTO) 0.8 X10'3 (1.1-4.8); LYMPHOCYTES % (AUTO) 10.9 % (21-51); MEAN CORPUSCULAR HEMOGLOBIN 27.4 PG (27.0-31.0); MEAN CORPUSCULAR HGB CONC 31.6 g/dL (33.0-36.5); MEAN CORPUSCULAR VOLUME 86.5 FL (78-98); MEAN PLATELET VOLUME 8.5 FL (7.4-10.4); MONOCYTES # (AUTO) 0.6 X10'3 (0-0.9); MONOCYTES % (AUTO) 8.9 % (2-12); NEUTROPHILS # (AUTO) 5.5 X10'3 (1.8-7.7); NEUTROPHILS % (AUTO) 78.1 % (42-75); PLATELET COUNT 79 X10'3 (140-440); RED BLOOD COUNT 2.41 X10'6 (4.20-5.60); RED CELL DISTRIBUTION WIDTH 23.8 % (11.5-14.5); WHITE BLOOD COUNT 7.1 X10'3 (4.5-11.0)
[2021-05-04 03:17] LABS: ALANINE AMINOTRANSFERASE 36 U/L (12-78); ALBUMIN 2.1 G/DL (3.4-5.0); ALBUMIN/GLOBULIN RATIO 0.5 (1.1-1.5); ALKALINE PHOSPHATASE 64 IU/L (46-116); ANION GAP 7 (8-16); ASPARTATE AMINO TRANSFERASE 41 U/L (10-37); BLOOD UREA NITROGEN 17 MG/DL (7-18); BUN/CREATININE RATIO 18.3 (6.6-38.0); CALCIUM 7.6 MG/DL (8.5-10.1); CHLORIDE 108 MMOL/L (99-107); CREATININE 0.93 MG/DL (0.40-0.90); GLUCOSE 126 MG/DL (70-104); POTASSIUM 3.5 MMOL/L (3.5-5.1); SODIUM 142 MMOL/L (135-145); TOTAL CARBON DIOXIDE 26.9 MMOL/L (24-32); TOTAL PROTEIN 6.1 G/DL (6.4-8.2); eGFR 61 ML/MIN
[2021-05-04 03:19] LABS: HEMATOCRIT 20.9 % (35.0-45.0); HEMOGLOBIN 6.6 g/dl (12.0-16.0)
[2021-05-04] MEDS: ipratropium/albuterol 3ml nebule NEB SCH ×6 (03:23→23:42)
[2021-05-04 04:11] LABS: ABG BASE EXCESS 1.4 mmol/L (-2.0-2.0); ABG HCO3 25.6 mmol/L (22.0-26.0); ABG OXYGEN SATURATION 97.9 % (94-97); ABG PCO2 (T) 37.7 mmHg (32.0-45.0); ABG PO2 (T) 100.2 mmHg (75.0-100.0); ALLEN'S TEST POSITIVE; FCOHb 0.4 % (0.0-3.9); FMetHb 0.4 % (0.0-1.5); FO2Hb 97.1 % (94-97); PATIENT TEMPERATURE 36.7; PEEP 5 cm H2O; RESPIRATORY RATE 14 b/min; TIDAL VOLUME 400 mL; TOTAL HEMOGLOBIN 7.3 G/dl (12.0-16.0)
[2021-05-04 04:30] LABS: MEAN CORPUSCULAR HEMOGLOBIN 27.3 PG (27.0-31.0); MEAN CORPUSCULAR HGB CONC 31.7 g/dL (33.0-36.5); MEAN CORPUSCULAR VOLUME 86.3 FL (78-98); MEAN PLATELET VOLUME 8.7 FL (7.4-10.4); PLATELET COUNT 79 X10'3 (140-440); RED BLOOD COUNT 2.42 X10'6 (4.20-5.60); RED CELL DISTRIBUTION WIDTH 23.9 % (11.5-14.5)
[2021-05-04 04:34] LABS: HEMATOCRIT 20.9 % (35.0-45.0); HEMOGLOBIN 6.6 g/dl (12.0-16.0)
[2021-05-04 04:40] LABS: ANISOCYTOSIS 3+; ELLIPTOCYTES 1+; PLATELET ESTIMATE DECREASED
[2021-05-04] MEDS: normal saline 1000ml 1,000 ML IV SCH (07:16)
[2021-05-04] MEDS: QUEtiapine 25mg tablet PO SCH ×2 (08:09→18:52)
[2021-05-04] MEDS: folic acid 1mg tablet PO SCH (08:09)
[2021-05-04] MEDS: apixaban 5mg tablet PO SCH ×2 (08:09→18:53)
[2021-05-04] MEDS: MULTIVIT-MIN/FERROUS GLUCONATE 9 MG/15 ML LIQUID PO SCH (08:09)
[2021-05-04] MEDS: cholecalciferol (vitamin D3) 1,000 unit (25mcg) tablet NG SCH (08:09)
[2021-05-04] MEDS: lactobacillus rhamnosus 10,000 MMU CELLS/CAPSULE PO SCH ×2 (08:09→18:52)
[2021-05-04] MEDS: piperacillin/tazo 3.375gm/50ml 50 ML IV SCH ×3 (08:09→23:06)
[2021-05-04] MEDS: thiamine 100mg tablet PO SCH (08:09)
[2021-05-04] MEDS: mineral oil/petrolatum, white cream 113gm jar TP SCH ×2 (08:10→18:52)
[2021-05-04] MEDS: famotidine/PF 10 mg/ml inj IV SCH ×2 (08:12→18:52)
[2021-05-04] MEDS ORDERED: furosemide 40mg/4ml inj IV ONE (10:20)
[2021-05-04] MEDS: insulin glargine (Lantus) pen - multi-dose SQ SCH (21:00)
[2021-05-04] MEDS: proCHLORperazine 10 MG/2 ml inj IV PRN (22:28)
[2021-05-05] VITALS (24 sets, daily range): BP systolic 87–146; BP diastolic 48–96
[2021-05-05] MEDS: fentaNYL/PF 50MCG/1 ML 2ML syringe IV PRN ×5 (01:08→19:14)
[2021-05-05] MEDS: mineral oil/petrolatum ophthal oint EACHEYE SCH ×4 (01:08→20:50)
[2021-05-05] MEDS: dexmedetomidine/D5W 100mL 100 ML IV SCH ×5 (02:15→21:07)
[2021-05-05] MEDS: ipratropium/albuterol 3ml nebule NEB SCH ×6 (02:42→23:12)
--- NOTE | 2021-05-05 02:57 | NUR ---
Pt continues to be agitated and restless all night despite fentanyl prns and Seroquel. Minimal response to medications. Pt constantly moving in bed, hanging feet off bed, fighting the ventilator pt vent dyssynchrony. Periodic episodes of desaturation down to the 70's, pt responds to hyperoxygenation.
[2021-05-05 02:58] LABS: ABG OXYGEN SATURATION 97.9 % (94-97); ABG PO2 (T) 107.8 mmHg (75.0-100.0); ALLEN'S TEST POSITIVE; FCOHb 0.5 % (0.0-3.9); FMetHb 0.2 % (0.0-1.5); FO2Hb 97.2 % (94-97); PATIENT TEMPERATURE 37.5; PEEP 5 cm H2O; TIDAL VOLUME 400 mL; TOTAL HEMOGLOBIN 8.6 G/dl (12.0-16.0)
[2021-05-05 03:20] LABS: BASOPHILS % (AUTO) 0.4 % (0-1); EOSINOPHILS # (AUTO) 0.1 X10'3 (0-0.9); EOSINOPHILS % (AUTO) 1.3 % (0-6); LYMPHOCYTES % (AUTO) 10.2 % (21-51); MEAN CORPUSCULAR HEMOGLOBIN 27.5 PG (27.0-31.0); MEAN CORPUSCULAR HGB CONC 31.8 g/dL (33.0-36.5); MEAN CORPUSCULAR VOLUME 86.3 FL (78-98); MEAN PLATELET VOLUME 9.2 FL (7.4-10.4); MONOCYTES % (AUTO) 9.8 % (2-12); NEUTROPHILS # (AUTO) 7.7 X10'3 (1.8-7.7); NEUTROPHILS % (AUTO) 78.3 % (42-75); PLATELET COUNT 113 X10'3 (140-440); RED CELL DISTRIBUTION WIDTH 21.5 % (11.5-14.5); WHITE BLOOD COUNT 9.8 X10'3 (4.5-11.0)
[2021-05-05 03:37] LABS: ALANINE AMINOTRANSFERASE 38 U/L (12-78); ALBUMIN 2.2 G/DL (3.4-5.0); ALBUMIN/GLOBULIN RATIO 0.5 (1.1-1.5); ALKALINE PHOSPHATASE 73 IU/L (46-116); ANION GAP 9 (8-16); ASPARTATE AMINO TRANSFERASE 38 U/L (10-37); BILIRUBIN,TOTAL 1.2 MG/DL (0.1-1.0); BLOOD UREA NITROGEN 20 MG/DL (7-18); BUN/CREATININE RATIO 22.7 (6.6-38.0); CALCIUM 7.8 MG/DL (8.5-10.1); CHLORIDE 106 MMOL/L (99-107); CREATININE 0.88 MG/DL (0.40-0.90); GLUCOSE 127 MG/DL (70-104); POTASSIUM 3.1 MMOL/L (3.5-5.1); SODIUM 141 MMOL/L (135-145); TOTAL CARBON DIOXIDE 26.4 MMOL/L (24-32); TOTAL PROTEIN 6.4 G/DL (6.4-8.2); eGFR 65 ML/MIN
[2021-05-05] MEDS: cholecalciferol (vitamin D3) 1,000 unit (25mcg) tablet NG SCH (07:11)
[2021-05-05] MEDS: MULTIVIT-MIN/FERROUS GLUCONATE 9 MG/15 ML LIQUID PO SCH (07:11)
[2021-05-05] MEDS: piperacillin/tazo 3.375gm/50ml 50 ML IV SCH ×2 (07:11→15:32)
[2021-05-05] MEDS: thiamine 100mg tablet PO SCH (07:11)
[2021-05-05] MEDS: famotidine/PF 10 mg/ml inj IV SCH ×2 (07:11→20:50)
[2021-05-05] MEDS: mineral oil/petrolatum, white cream 113gm jar TP SCH ×2 (07:12→20:00)
[2021-05-05] MEDS: QUEtiapine 25mg tablet PO SCH (07:12)
[2021-05-05] MEDS: lactobacillus rhamnosus 10,000 MMU CELLS/CAPSULE PO SCH ×2 (07:12→20:50)
[2021-05-05] MEDS: apixaban 5mg tablet PO SCH ×2 (07:12→20:50)
[2021-05-05] MEDS: folic acid 1mg tablet PO SCH (07:12)
[2021-05-05] MEDS: potassium Cl 40MEQ/250ML bag 270 ML IV PRN (07:21)
[2021-05-05] MEDS: K and/or MAG REPLACEMENT MC SCH (07:30)
--- NOTE | 2021-05-05 11:53 | NUR ---
Reassessment: Pt remains intubated and receiving TF at goal rate. Overall pt tolerating TF however noted GRV up to 475 mL at 0810 this morning, down to 300 mL at 1005. Recommend continuing TF at goal rate. LBM 05/03 with PRN bowel care available. No changes to nutrition intervention recommendations at this time. Will continue to follow closely. Recommendations: 1) Continuous TF via OG tube using Vital AF with goal rate of 70 mL/hr to provide: 1680 mL total volume/day, 2016 kcal, 126 g protein, and 1362 mL water 2) Additional 200 mL water flush Q4H 3) Prealbumin q Friday/; Daily weights 4) Bowel care per rx Addendum: 05/05/21 at [address] Amended: Links added.
[2021-05-05 14:59] LABS: POTASSIUM 3.6 MMOL/L (3.5-5.1); eGFR 64 ML/MIN
[2021-05-05] MEDS: furosemide 10 MG/1 ML 10ml inj IV SCH (15:30)
[2021-05-05] MEDS: metoclopramide 5 mg/ml inj IV SCH (15:31)
[2021-05-05] MEDS: spironolactone 25 MG tablet PO SCH (15:36)
--- NOTE | 2021-05-05 18:17 | NUR ---
Problems reprioritized. Patient report given, questions answered & plan of care reviewed with Becky.
[2021-05-05] MEDS: proCHLORperazine 10 MG/2 ml inj IV PRN (19:14)
[2021-05-05] MEDS: quetiapine 100mg tablet PO SCH (20:50)
[2021-05-05] MEDS: vitamin A & D ointment-NF 1 APPLIC TUBE TP PRN (20:51)
[2021-05-05] MEDS: insulin glargine (Lantus) pen - multi-dose SQ SCH (20:52)
[2021-05-06] VITALS (24 sets, daily range): BP systolic 86–126; BP diastolic 36–83
[2021-05-06] MEDS: metoclopramide 5 mg/ml inj IV SCH ×3 (00:03→16:07)
[2021-05-06] MEDS: furosemide 10 MG/1 ML 10ml inj IV SCH ×3 (00:03→16:00)
[2021-05-06] MEDS: spironolactone 25 MG tablet PO SCH ×3 (00:04→16:00)
[2021-05-06] MEDS: piperacillin/tazo 3.375gm/50ml 50 ML IV SCH ×3 (00:04→16:06)
[2021-05-06] MEDS: fentaNYL/PF 50MCG/1 ML 2ML syringe IV PRN (00:05)
[2021-05-06] MEDS: dexmedetomidine/D5W 100mL 100 ML IV SCH ×6 (00:54→20:11)
[2021-05-06] MEDS: mineral oil/petrolatum ophthal oint EACHEYE SCH ×4 (02:25→20:03)
[2021-05-06 03:09] LABS: ABG BASE EXCESS 2.8 mmol/L (-2.0-2.0); ABG HCO3 26.3 mmol/L (22.0-26.0); ABG OXYGEN SATURATION 97.1 % (94-97); ABG PCO2 (T) 35.7 mmHg (32.0-45.0); ABG PO2 (T) 89.3 mmHg (75.0-100.0); ALLEN'S TEST POSITIVE; FCOHb 0.7 % (0.0-3.9); FMetHb 0.4 % (0.0-1.5); PATIENT TEMPERATURE 36.9; PEEP 5 cm H2O; RESPIRATORY RATE 14 b/min; TIDAL VOLUME 400 mL; TOTAL HEMOGLOBIN 8.6 G/dl (12.0-16.0)
[2021-05-06 03:36] LABS: BASOPHILS % (AUTO) 0.2 % (0-1); EOSINOPHILS # (AUTO) 0.1 X10'3 (0-0.9); EOSINOPHILS % (AUTO) 1.4 % (0-6); HEMATOCRIT 23.6 % (35.0-45.0); HEMOGLOBIN 7.6 g/dl (12.0-16.0); LYMPHOCYTES # (AUTO) 0.9 X10'3 (1.1-4.8); LYMPHOCYTES % (AUTO) 10.4 % (21-51); MEAN CORPUSCULAR HEMOGLOBIN 27.8 PG (27.0-31.0); MEAN CORPUSCULAR HGB CONC 32.3 g/dL (33.0-36.5); MEAN PLATELET VOLUME 8.9 FL (7.4-10.4); MONOCYTES # (AUTO) 0.8 X10'3 (0-0.9); MONOCYTES % (AUTO) 9.3 % (2-12); NEUTROPHILS # (AUTO) 6.7 X10'3 (1.8-7.7); NEUTROPHILS % (AUTO) 78.7 % (42-75); PLATELET COUNT 154 X10'3 (140-440); RED BLOOD COUNT 2.75 X10'6 (4.20-5.60); RED CELL DISTRIBUTION WIDTH 22.1 % (11.5-14.5); WHITE BLOOD COUNT 8.5 X10'3 (4.5-11.0)
[2021-05-06] MEDS: proCHLORperazine 10 MG/2 ml inj IV PRN (03:48)
[2021-05-06 03:50] LABS: ANION GAP 8 (8-16); BLOOD UREA NITROGEN 21 MG/DL (7-18); BUN/CREATININE RATIO 21.2 (6.6-38.0); CALCIUM 7.8 MG/DL (8.5-10.1); CHLORIDE 107 MMOL/L (99-107); CREATININE 0.99 MG/DL (0.40-0.90); GLUCOSE 119 MG/DL (70-104); MAGNESIUM 1.7 MG/DL (1.5-2.4); SODIUM 142 MMOL/L (135-145); TOTAL CARBON DIOXIDE 27.4 MMOL/L (24-32); eGFR 57 ML/MIN
[2021-05-06] MEDS: ipratropium/albuterol 3ml nebule NEB SCH ×6 (03:52→22:57)
[2021-05-06 03:55] LABS: POTASSIUM 2.9 MMOL/L (3.5-5.1)
[2021-05-06] MEDS: potassium Cl 40MEQ/250ML bag 270 ML IV PRN (04:41)
[2021-05-06] MEDS: K and/or MAG REPLACEMENT MC SCH (07:00)
[2021-05-06] MEDS: famotidine/PF 10 mg/ml inj IV SCH ×2 (07:09→20:04)
[2021-05-06] MEDS: cholecalciferol (vitamin D3) 1,000 unit (25mcg) tablet NG SCH (07:13)
[2021-05-06] MEDS: apixaban 5mg tablet PO SCH ×2 (07:14→20:04)
[2021-05-06] MEDS: MULTIVIT-MIN/FERROUS GLUCONATE 9 MG/15 ML LIQUID PO SCH (07:14)
[2021-05-06] MEDS: QUEtiapine 25mg tablet PO SCH (07:14)
[2021-05-06] MEDS: folic acid 1mg tablet PO SCH (07:14)
[2021-05-06] MEDS: lactobacillus rhamnosus 10,000 MMU CELLS/CAPSULE PO SCH ×2 (07:14→20:03)
[2021-05-06] MEDS: thiamine 100mg tablet PO SCH (07:15)
[2021-05-06] MEDS: mineral oil/petrolatum, white cream 113gm jar TP SCH ×2 (07:15→20:04)
--- NOTE | 2021-05-06 11:41 | NUR ---
Attempted to call kwadwo Redding per Dr. Wheeler's request in hopes of discussing a plan of care for this patient. There was no answer. Will attempt again in a few hours.
--- NOTE | 2021-05-06 15:54 | NUR ---
Spoke with Miladis (patient family member) per Dr. Wheeler's request. Miladis is going to speak to her brother and decide a time for tomorrow 05/07 to come in for a family meeting with the MD. Miladis stated that she would be able to give us a time by this late afternoon. Will update the necessary people when Miladis calls back.
[2021-05-06] MEDS: quetiapine 100mg tablet PO SCH (20:05)
[2021-05-06] MEDS: insulin glargine (Lantus) pen - multi-dose SQ SCH (20:06)
[2021-05-07] VITALS (23 sets, daily range): BP systolic 85–140; BP diastolic 47–83
[2021-05-07] MEDS: mineral oil/petrolatum ophthal oint EACHEYE SCH ×3 (01:15→14:00)
[2021-05-07] MEDS: spironolactone 25 MG tablet PO SCH ×2 (01:24→08:00)
[2021-05-07] MEDS: furosemide 10 MG/1 ML 10ml inj IV SCH ×2 (01:25→08:00)
[2021-05-07] MEDS: metoclopramide 5 mg/ml inj IV SCH ×2 (01:25→08:21)
[2021-05-07] MEDS: piperacillin/tazo 3.375gm/50ml 50 ML IV SCH ×4 (01:25→23:54)
[2021-05-07 03:01] LABS: BASOPHILS % (AUTO) 0.2 % (0-1); EOSINOPHILS # (AUTO) 0.1 X10'3 (0-0.9); EOSINOPHILS % (AUTO) 1.4 % (0-6); HEMATOCRIT 24.8 % (35.0-45.0); HEMOGLOBIN 8.1 g/dl (12.0-16.0); LYMPHOCYTES # (AUTO) 0.9 X10'3 (1.1-4.8); LYMPHOCYTES % (AUTO) 11.2 % (21-51); MEAN CORPUSCULAR HEMOGLOBIN 28.1 PG (27.0-31.0); MEAN CORPUSCULAR HGB CONC 32.5 g/dL (33.0-36.5); MEAN CORPUSCULAR VOLUME 86.4 FL (78-98); MEAN PLATELET VOLUME 8.4 FL (7.4-10.4); MONOCYTES # (AUTO) 0.8 X10'3 (0-0.9); MONOCYTES % (AUTO) 9.4 % (2-12); NEUTROPHILS # (AUTO) 6.4 X10'3 (1.8-7.7); NEUTROPHILS % (AUTO) 77.8 % (42-75); PLATELET COUNT 195 X10'3 (140-440); RED BLOOD COUNT 2.87 X10'6 (4.20-5.60); RED CELL DISTRIBUTION WIDTH 22.7 % (11.5-14.5); WHITE BLOOD COUNT 8.3 X10'3 (4.5-11.0)
[2021-05-07 03:04] LABS: ALBUMIN 2.2 G/DL (3.4-5.0); ANION GAP 8 (8-16); BLOOD UREA NITROGEN 22 MG/DL (7-18); CALCIUM 8.4 MG/DL (8.5-10.1); CHLORIDE 104 MMOL/L (99-107); CREATININE 1.05 MG/DL (0.40-0.90); GLUCOSE 132 MG/DL (70-104); MAGNESIUM 1.6 MG/DL (1.5-2.4); POTASSIUM 3.6 MMOL/L (3.5-5.1); SODIUM 140 MMOL/L (135-145); TOTAL CARBON DIOXIDE 27.8 MMOL/L (24-32); eGFR 53 ML/MIN
[2021-05-07] MEDS: dexmedetomidine/D5W 100mL 100 ML IV SCH ×4 (03:05→20:55)
[2021-05-07 03:26] LABS: ABG BASE EXCESS 1.7 mmol/L (-2.0-2.0); ABG HCO3 25.5 mmol/L (22.0-26.0); ABG OXYGEN SATURATION 95.8 % (94-97); ABG PCO2 (T) 36.5 mmHg (32.0-45.0); ABG PO2 (T) 79.8 mmHg (75.0-100.0); ALLEN'S TEST POSITIVE; FCOHb 0.8 % (0.0-3.9); FMetHb 0.2 % (0.0-1.5); FO2Hb 94.8 % (94-97); PATIENT TEMPERATURE 36.9; PEEP 5 cm H2O; RESPIRATORY RATE 14 b/min; TIDAL VOLUME 400 mL; TOTAL HEMOGLOBIN 8.4 G/dl (12.0-16.0)
[2021-05-07] MEDS: ipratropium/albuterol 3ml nebule NEB SCH ×4 (03:29→20:30)
[2021-05-07 05:02] LABS: ANISOCYTOSIS 3+; PLATELET ESTIMATE NORMAL; POLYCHROMASIA 1+
[2021-05-07 05:03] LABS: ELLIPTOCYTES FEW; TEAR DROP CELLS FEW
--- NOTE | 2021-05-07 06:46 | NUR ---
Patient in room ICU 2037. I have received report from Declan and had the opportunity to ask questions and assume patient care.
[2021-05-07] MEDS: MULTIVIT-MIN/FERROUS GLUCONATE 9 MG/15 ML LIQUID PO SCH (08:12)
[2021-05-07] MEDS: lactobacillus rhamnosus 10,000 MMU CELLS/CAPSULE PO SCH ×2 (08:16→20:48)
[2021-05-07] MEDS: QUEtiapine 25mg tablet PO SCH (08:17)
[2021-05-07] MEDS: apixaban 5mg tablet PO SCH ×2 (08:17→20:48)
[2021-05-07] MEDS: folic acid 1mg tablet PO SCH (08:17)
[2021-05-07] MEDS: mineral oil/petrolatum, white cream 113gm jar TP SCH ×2 (08:18→20:48)
[2021-05-07] MEDS: famotidine/PF 10 mg/ml inj IV SCH ×2 (08:18→20:48)
[2021-05-07] MEDS: thiamine 100mg tablet PO SCH (08:18)
[2021-05-07] MEDS: cholecalciferol (vitamin D3) 1,000 unit (25mcg) tablet NG SCH (08:18)
[2021-05-07] MEDS: K and/or MAG REPLACEMENT MC SCH (08:22)
[2021-05-07] MEDS: fentaNYL/PF 50MCG/1 ML 2ML syringe IV PRN ×3 (08:37→19:00)
[2021-05-07] MEDS ORDERED: ipratropium/albuterol 3ml nebule NEB PRN (10:10)
[2021-05-07] MEDS ORDERED: racepinephrine 11.25mg/0.5ml nebule NEB PRN (10:10)
--- NOTE | 2021-05-07 12:36 | NUR ---
0800- Patient assessed. mouthing words when I told her I couldnt tell what she was saying, she clearly mouthed "fuck you", smacking hand against rail. Placed on spontaneous tolerating well. Wound care to feet completed. cracked and dried blood between toes. Labia grossly swollen. 1000 critical care rounds- plan for extubation, remove NG. 1055- Patient extubated, placed on 3 lt NC. coarse rhonchi throughout, first words were "mother fucker". HR up to 144 and sustained. RT placed on bipap HR down to 120, patient wants mask off. placed back on NC at 3 lt. 1130- patient states shes constipated, I explained she has rectal tube for diarrhea, adamant it comes out, turned and cleaned patient, wound care provided to the open wounds to both buttock and coccyx, rectal tube remains, now incontinent of liquid diarrhea. Yelled (with her best raspy voice) "to get the fuck out, leave me the fuck alone. " Patient not oriented to time, place or situation, arranged for sitter until more clear and able to follow safety instructions. 1230- Loose stools continue, now on room air and tolerating, somewhat less aggressive.
--- NOTE | 2021-05-07 14:32 | NUR ---
1400- patient having copious stools. attempting to comb out hair, shampooed and brushing as patient tolerates. Nursing bedside swallow performed with one spoonful of water, failed swallow eval. 1430- Patient getting verbally aggressive reached up and grabbed her central lines and was pulling. Patient sternly reprimanded, bedsde sitter remains at bedside.
--- NOTE | 2021-05-07 18:21 | NUR ---
Problems reprioritized. Patient report given, questions answered & plan of care reviewed with Alyse. Pt remains midly confused but continuing to improve. Less aggressive.
--- NOTE | 2021-05-07 18:23 | NUR ---
Patient in room ICU 2037. I have received report from ROBERTO Mario and had the opportunity to ask questions and assume patient care. Patient was extubated today and is resting comfortably with sitter at bedside, I will continue to monitor.
[2021-05-07] MEDS: quetiapine 100mg tablet PO SCH (20:48)
[2021-05-07] MEDS: insulin glargine (Lantus) pen - multi-dose SQ SCH (21:00)
[2021-05-08] VITALS (21 sets, daily range): BP systolic 87–164; BP diastolic 46–103
[2021-05-08] MEDS: dexmedetomidine/D5W 100mL 100 ML IV SCH ×3 (02:50→20:42)
[2021-05-08 02:58] LABS: BASOPHILS % (AUTO) 0.3 % (0-1); EOSINOPHILS # (AUTO) 0.2 X10'3 (0-0.9); EOSINOPHILS % (AUTO) 2.3 % (0-6); HEMATOCRIT 24.1 % (35.0-45.0); HEMOGLOBIN 7.8 g/dl (12.0-16.0); LYMPHOCYTES # (AUTO) 0.9 X10'3 (1.1-4.8); LYMPHOCYTES % (AUTO) 10.8 % (21-51); MEAN CORPUSCULAR HGB CONC 32.4 g/dL (33.0-36.5); MEAN CORPUSCULAR VOLUME 86.3 FL (78-98); MEAN PLATELET VOLUME 7.8 FL (7.4-10.4); MONOCYTES # (AUTO) 0.9 X10'3 (0-0.9); MONOCYTES % (AUTO) 11.1 % (2-12); NEUTROPHILS # (AUTO) 6.4 X10'3 (1.8-7.7); NEUTROPHILS % (AUTO) 75.5 % (42-75); PLATELET COUNT 220 X10'3 (140-440); RED CELL DISTRIBUTION WIDTH 23.2 % (11.5-14.5); WHITE BLOOD COUNT 8.4 X10'3 (4.5-11.0)
[2021-05-08 03:08] LABS: ALBUMIN 2.2 G/DL (3.4-5.0); ANION GAP 11 (8-16); BLOOD UREA NITROGEN 19 MG/DL (7-18); BUN/CREATININE RATIO 17.9 (6.6-38.0); CALCIUM 8.1 MG/DL (8.5-10.1); CHLORIDE 107 MMOL/L (99-107); CREATININE 1.06 MG/DL (0.40-0.90); GLUCOSE 90 MG/DL (70-104); MAGNESIUM 1.7 MG/DL (1.5-2.4); POTASSIUM 3.2 MMOL/L (3.5-5.1); SODIUM 145 MMOL/L (135-145); TOTAL CARBON DIOXIDE 27.2 MMOL/L (24-32); eGFR 53 ML/MIN
[2021-05-08] MEDS: ipratropium/albuterol 3ml nebule NEB SCH ×4 (04:10→20:44)
[2021-05-08 04:44] LABS: PLATELET ESTIMATE NORMAL
[2021-05-08 04:45] LABS: ANISOCYTOSIS 3+; ELLIPTOCYTES FEW
--- NOTE | 2021-05-08 06:10 | NUR ---
Problems reprioritized. Patient report given, questions answered & plan of care reviewed with ROBERTO Mario.
--- NOTE | 2021-05-08 06:12 | NUR ---
Patient in room ICU 2039. I have received report from Alyse and had the opportunity to ask questions and assume patient care.
[2021-05-08] MEDS: apixaban 5mg tablet PO SCH (08:18)
[2021-05-08] MEDS: famotidine/PF 10 mg/ml inj IV SCH (08:18)
[2021-05-08] MEDS: piperacillin/tazo 3.375gm/50ml 50 ML IV SCH ×2 (08:18→16:58)
[2021-05-08] MEDS: potassium Cl 40MEQ/250ML bag 270 ML IV PRN (08:18)
[2021-05-08] MEDS: cholecalciferol (vitamin D3) 1,000 unit (25mcg) tablet NG SCH (08:18)
[2021-05-08] MEDS: folic acid 1mg tablet PO SCH (08:19)
[2021-05-08] MEDS: mineral oil/petrolatum, white cream 113gm jar TP SCH ×2 (08:20→21:14)
[2021-05-08] MEDS: thiamine 100mg tablet PO SCH (08:23)
[2021-05-08] MEDS: QUEtiapine 25mg tablet PO SCH (08:23)
[2021-05-08] MEDS: lactobacillus rhamnosus 10,000 MMU CELLS/CAPSULE PO SCH ×2 (08:23→21:05)
[2021-05-08] MEDS: multivitamins, therapeutics tablet PO SCH (08:39)
--- NOTE | 2021-05-08 10:47 | NUR ---
0800- Patient assessed, speech clearer today. Oriented to self, town and year but confusion persists, will start to talk nonsensical. BSS completed, OK for puree nectar thick, took pills well with applesauce. Generalized pitting edema. Labia still grossly swollen but less than yesterday. Arms elevated on two pillows. Wound between R great toe and second toe open, rinsed with wound spray applied ointment and placed gauze between all toes. Rectal tube in place, working effectively, still necessary as diarrhea persists. 0900- Fed patient breakfast. when pt attempted she mixing her food all together. Too altered to make proper decisions. Ate the cream of wheat and some eggs. 1000- Critical care rounds completed . Patient to transfer to floor with tele.
--- NOTE | 2021-05-08 11:15 | NUR ---
F/u 05/08: Pt extubated yesterday advanced to pureed/nectar thick liquids today per REGULATORY SUBMISSIONS ASSOCIATE/MD. Pt remains confused though did have small portion of breakfast per RN at rounds. Will monitor for PO acceptance and ONS needs as prior to ICU visit pt had essentially no nutrition 3.5 weeks. LBM 05/08 w/ liquid stool this AM s/p rectal tube placement per RN; -100ml output per EMR. Will continue to monitor. Recommendations: 1) Continue pureed/nectar thick diet per REGULATORY SUBMISSIONS ASSOCIATE/MD; feeder w/ meals to assist PO 2) Monitor for ONS needs pending PO hx; prior to intubation poor PO intake 3.5 weeks 3) Bowel care per rx 4) weekly wts Addendum: 05/08/21 at [address] Amended: Links added.
--- NOTE | 2021-05-08 13:25 | NUR ---
1200- since stopping precedex patient getting more restless. patient continues to complain her "butt hurts", heart rate trending up, respiration increasing. Informed Dr Mccarthy, No new orders.
--- NOTE | 2021-05-08 13:26 | NUR ---
1300- Removed rectal tube in hopes of calming patient and get her more comfortable. Very slight improvement. HR 144, resp up. sats fine. MD in procedure.
[2021-05-08] MEDS ORDERED: HYDROmorphone inj. 0.5 MG/0.5 ML DISP.SYRIN IM ONE (13:40)
[2021-05-08] MEDS ORDERED: aspirin 325mg tablet PO PRN (13:40)
[2021-05-08] MEDS ORDERED: adenosine 3mg/ml 2ml vial IV ONE (13:40)
[2021-05-08] MEDS ORDERED: HYDROmorphone/PF 0.2 MG/ML SYRINGE IV ONE (13:45)
[2021-05-08] MEDS ORDERED: amiodarone 150mg/dext, iso-os 100 ML IV ONE ×2 (13:57→14:05)
[2021-05-08] MEDS ORDERED: amiodarone/D5 360MG/200ML BAG 200 ML IV ONE (13:58)
[2021-05-08] MEDS: amiodarone/D5 360MG/200ML BAG 200 ML IV SCH ×2 (14:05→21:04)
[2021-05-08] MEDS: HYDROmorphone inj. 0.5 MG/0.5 ML DISP.SYRIN IV PRN ×3 (15:11→21:36)
[2021-05-08] MEDS ORDERED: methylnaltrexone br 12mg/0.6ml inj***SubQ only SQ PRN (15:35)
[2021-05-08] MEDS ORDERED: lactulose 20gm/30ml cup PO SCH (15:35)
--- NOTE | 2021-05-08 15:59 | NUR ---
[id number] HR up to 150's unable to determine ST or afib, regular. . breathing 50 a minute. notified, dilaudid 0.4. HR decreased for a moment and resumed. order for amiodarone gtt. 1430 Belly pain severe, cannot articulate. grabbing lower right abdomen. Temp up to 38 temporal. notified, give aspirin and CT abd and pelvis, no contrast 1500 Remedicated with 0.4 dilaudid and going to CT. 1530 CT completed, pt tolerated well, pain appears to be controlled. 1600 becoming more restless, awaiting CT report. Dr Mccarthy reviewed CT scan- perhaps full of stool
--- NOTE | 2021-05-08 17:33 | NUR ---
1730- Dr Mccarthy rounded - abdomen issue is a rectus hematoma. Hold michelle and vickeys
--- NOTE | 2021-05-08 18:30 | NUR ---
Patient in room ICU 2039. I have received report from ROBERTO Mario and had the opportunity to ask questions and assume patient care. Patient awake, but confused and complaining of abdominal pain. A sitter is at the bedside, I will continue to monitor.
[2021-05-08] MEDS: quetiapine 100mg tablet PO SCH (21:04)
--- NOTE | 2021-05-08 23:35 | NUR ---
Patient is confused and anxious, she will fall asleep for 10-15min and then wake up in a panic and hold her breath to the point of destating. She was given Seroquel and I have increased her Precedex to 1.4, I will continue to monitor and if it continues I will call tray worker for orders.
[2021-05-09] VITALS (27 sets, daily range): BP systolic 88–144; BP diastolic 45–88
[2021-05-09] MEDS: piperacillin/tazo 3.375gm/50ml 50 ML IV SCH ×4 (00:23→23:59)
[2021-05-09 00:56] LABS: ABG BASE EXCESS -2.1 mmol/L (-2.0-2.0); ABG HCO3 21.9 mmol/L (22.0-26.0); ABG OXYGEN SATURATION 98.9 % (94-97); ABG PCO2 (T) 34.7 mmHg (32.0-45.0); ABG PO2 (T) 148.4 mmHg (75.0-100.0); ALLEN'S TEST POSITIVE; FCOHb 1.2 % (0.0-3.9); FMetHb 0.3 % (0.0-1.5); FO2Hb 97.4 % (94-97); PATIENT TEMPERATURE 37.8; TOTAL HEMOGLOBIN 6.2 G/dl (12.0-16.0)
[2021-05-09 01:56] LABS: MEAN CORPUSCULAR HEMOGLOBIN 28.3 PG (27.0-31.0); MEAN CORPUSCULAR HGB CONC 32.3 g/dL (33.0-36.5); MEAN CORPUSCULAR VOLUME 87.5 FL (78-98); MEAN PLATELET VOLUME 7.6 FL (7.4-10.4); PLATELET COUNT 227 X10'3 (140-440); RED BLOOD COUNT 2.01 X10'6 (4.20-5.60); RED CELL DISTRIBUTION WIDTH 22.8 % (11.5-14.5); WHITE BLOOD COUNT 8.1 X10'3 (4.5-11.0)
--- NOTE | 2021-05-09 02:10 | NUR ---
Patient's BP dropping 88/45, Hgb 5.6 HCT 17.6. I called Dr. Alba and will get stat Type and Cross and he advised he will put orders in and will need stat CT.
[2021-05-09 02:14] LABS: HEMATOCRIT 17.6 % (35.0-45.0); HEMOGLOBIN 5.7 g/dl (12.0-16.0)
--- NOTE | 2021-05-09 03:00 | NUR ---
Patient to CT
[2021-05-09 03:16] LABS: BASOPHILS % (AUTO) 0.5 % (0-1); EOSINOPHILS # (AUTO) 0.1 X10'3 (0-0.9); LYMPHOCYTES # (AUTO) 0.8 X10'3 (1.1-4.8); LYMPHOCYTES % (AUTO) 10.7 % (21-51); MEAN CORPUSCULAR HEMOGLOBIN 28.3 PG (27.0-31.0); MEAN CORPUSCULAR HGB CONC 32.3 g/dL (33.0-36.5); MEAN CORPUSCULAR VOLUME 87.6 FL (78-98); MEAN PLATELET VOLUME 7.7 FL (7.4-10.4); MONOCYTES # (AUTO) 0.9 X10'3 (0-0.9); MONOCYTES % (AUTO) 12.4 % (2-12); NEUTROPHILS # (AUTO) 5.8 X10'3 (1.8-7.7); NEUTROPHILS % (AUTO) 75.4 % (42-75); PLATELET COUNT 207 X10'3 (140-440); RED BLOOD COUNT 1.94 X10'6 (4.20-5.60); RED CELL DISTRIBUTION WIDTH 23.1 % (11.5-14.5); WHITE BLOOD COUNT 7.7 X10'3 (4.5-11.0)
[2021-05-09 03:18] LABS: ANION GAP 11 (8-16); CALCIUM 7.8 MG/DL (8.5-10.1); CHLORIDE 108 MMOL/L (99-107); CREATININE 1.25 MG/DL (0.40-0.90); GLUCOSE 108 MG/DL (70-104); MAGNESIUM 1.6 MG/DL (1.5-2.4); POTASSIUM 3.9 MMOL/L (3.5-5.1); SODIUM 145 MMOL/L (135-145); TOTAL CARBON DIOXIDE 25.6 MMOL/L (24-32); eGFR 44 ML/MIN
[2021-05-09] MEDS: ipratropium/albuterol 3ml nebule NEB SCH ×4 (03:27→20:33)
[2021-05-09 03:31] LABS: HEMOGLOBIN 5.5 g/dl (12.0-16.0)
[2021-05-09 03:32] LABS: BLOOD UREA NITROGEN 21 MG/DL (7-18); BUN/CREATININE RATIO 16.8 (6.6-38.0)
[2021-05-09 04:02] LABS: PARTIAL THROMBOPLASTIN TIME 36 SECONDS (22-32)
[2021-05-09] MEDS ORDERED: calcium chloride inj. 1,000 MG in normal saline 100ml IV soln 100 ML IV ONE (04:30)
[2021-05-09] MEDS ORDERED: magnesium 2GM in 50ml NS 50 ML IV ONE (04:30)
[2021-05-09 04:42] LABS: PLATELET ESTIMATE NORMAL
[2021-05-09 04:43] LABS: ANISOCYTOSIS 3+; ELLIPTOCYTES 1+
[2021-05-09] MEDS: HYDROmorphone inj. 0.5 MG/0.5 ML DISP.SYRIN IV PRN ×6 (05:21→21:48)
[2021-05-09] MEDS: amiodarone/D5 360MG/200ML BAG 200 ML IV SCH ×4 (05:47→17:12)
--- NOTE | 2021-05-09 06:12 | NUR ---
Problems reprioritized. Patient report given, questions answered & plan of care reviewed with ROBERTO Quiles.
--- NOTE | 2021-05-09 06:30 | NUR ---
Patient in room ICU 2039. I have received report from ROBERTO Villatoro and had the opportunity to ask questions and assume patient care.
--- NOTE | 2021-05-09 06:47 | NUR ---
Patient in room ICU 2039. I have received report from Magui and had the opportunity to ask questions and assume patient care.
[2021-05-09] MEDS: folic acid 1mg tablet PO SCH (07:27)
[2021-05-09] MEDS: lactobacillus rhamnosus 10,000 MMU CELLS/CAPSULE PO SCH ×2 (07:27→21:47)
[2021-05-09] MEDS: cholecalciferol (vitamin D3) 1,000 unit (25mcg) tablet NG SCH (07:27)
[2021-05-09] MEDS: thiamine 100mg tablet PO SCH (07:27)
[2021-05-09] MEDS: QUEtiapine 25mg tablet PO SCH (07:28)
[2021-05-09] MEDS: multivitamins, therapeutics tablet PO SCH (07:28)
[2021-05-09] MEDS: mineral oil/petrolatum, white cream 113gm jar TP SCH ×2 (08:00→21:47)
[2021-05-09] MEDS: dexmedetomidine/D5W 100mL 100 ML IV SCH ×2 (09:55→17:06)
[2021-05-09] MEDS ORDERED: furosemide 40mg/4ml inj IV ONE ×2 (10:05→17:25)
[2021-05-09] MEDS ORDERED: diltiazem-NS 100mg/100ml 100 ML IV SCH (10:55)
[2021-05-09] MEDS ORDERED: magnesium 4gm in 100ml NS 100 ML IV ONE (10:55)
--- NOTE | 2021-05-09 11:45 | NUR ---
F/u 05/09: Pt remains ALOC AOx0 per EMR PO 25-50% breakfast though refusing lunch and dinner last night w/ sitter present. Advanced to pureed/thin diet this AM per [employer]OVER however given poor nutrition intake hx pre- and post-intubation w/ ALOC MD is agreeable to corpak to meet nutrition needs. Will keep PO diet active and monitor for PO trends on top of NG feeds to optimize nutrition intake. Pending TF consult and corpak placement at this time. LBM 05/08 w/ 200ml rectal tube output. Will monitor for nutrition support initiation and tolerance. Recommendations: 1) Once corpak; continuous TF per MD using Jevity 1.2 at 65ml/hr goal; to provide 1560ml volume, 1872 kcals, 1264ml free water, and 87g protein. 2) once TF; additional water flush 200ml Q4H 3) Continue pureed/thin diet per H[employer] REMOVER recs; encourage PO w/ ALOC 4) Continue NTF until consistent PO at least 65% avg meals 5) once TF; PALB Q /; daily wts 6) Bowel care per rx 7) monitor for PO trends and nutrition support adjustment needs as medically indicated Addendum: 05/09/21 at [address] Amended: Links added.
[2021-05-09] MEDS ORDERED: phytonadione inj. 2 MG in normal saline 100ml IV soln 100 ML IV ONE (12:00)
[2021-05-09] MEDS: diltiazem-NS 100mg/100ml 100 ML IV SCH (12:01)
--- NOTE | 2021-05-09 13:49 | NUR ---
TF Consult: NGTF to start today per MD; see below RD recs. Will monitor for TF tolerance. Recommendations: 1) Continuous TF per MD using Jevity 1.2 at 65ml/hr goal; to provide 1560ml volume, 1872 kcals, 1264ml free water, and 87g protein. 2) additional water flush 200ml Q4H 3) Continue pureed/thin diet per G[employer] PLANT WORKER recs; encourage PO w/ ALOC 4) Continue NTF until consistent PO at least 65% avg meals 5) PALB Q /; daily wts 6) Bowel care per rx 7) monitor for PO trends and nutrition support adjustment needs as medically indicated Addendum: 05/09/21 at [address] Amended: Links added.
[2021-05-09 15:59] LABS: BASOPHILS # (AUTO) 0.1 X10'3 (0-0.2); BASOPHILS % (AUTO) 0.5 % (0-1); EOSINOPHILS # (AUTO) 0.2 X10'3 (0-0.9); EOSINOPHILS % (AUTO) 1.5 % (0-6); HEMATOCRIT 26.1 % (35.0-45.0); HEMOGLOBIN 8.6 g/dl (12.0-16.0); LYMPHOCYTES # (AUTO) 1.1 X10'3 (1.1-4.8); LYMPHOCYTES % (AUTO) 10.6 % (21-51); MEAN CORPUSCULAR HEMOGLOBIN 29.3 PG (27.0-31.0); MEAN CORPUSCULAR HGB CONC 33.1 g/dL (33.0-36.5); MEAN CORPUSCULAR VOLUME 88.6 FL (78-98); MONOCYTES # (AUTO) 1.4 X10'3 (0-0.9); MONOCYTES % (AUTO) 13.7 % (2-12); NEUTROPHILS # (AUTO) 7.6 X10'3 (1.8-7.7); NEUTROPHILS % (AUTO) 73.7 % (42-75); PLATELET COUNT 214 X10'3 (140-440); RED BLOOD COUNT 2.95 X10'6 (4.20-5.60); RED CELL DISTRIBUTION WIDTH 19.5 % (11.5-14.5); WHITE BLOOD COUNT 10.3 X10'3 (4.5-11.0)
--- NOTE | 2021-05-09 16:05 | NUR ---
Spoke to Dr. Merrill on the phone about noticing of blood in urine. He would still like a corepack. No new orders at this time.
--- NOTE | 2021-05-09 16:38 | NUR ---
Attempted [address] core[address], unsuccessful as patient pulled away or pulled hands away during corepack insertion. Patient able to eat an entire yogurt with assistance and prompting.
--- NOTE | 2021-05-09 17:16 | NUR ---
Received an order for one mg of Ativan and 40mg of Lasix per Dr. Merrill.
[2021-05-09] MEDS ORDERED: LORazepam 2 mg/ml vial IM ONE (17:25)
[2021-05-09] MEDS ORDERED: LORazepam 2 mg/ml vial IV ONE (17:40)
--- NOTE | 2021-05-09 18:21 | NUR ---
Problems reprioritized. Patient report given, questions answered & plan of care reviewed with ROBERTO Coffey.
[2021-05-09] MEDS: docusate sod 100mg capsule PO PRN (21:47)
[2021-05-09] MEDS: quetiapine 100mg tablet PO SCH (21:47)
--- NOTE | 2021-05-09 23:30 | NUR ---
Corpak placed, waiting on x-ray to confirm placement. Per x-ray, corpak not at preferred location, will re-check for transition to preferred location on dayshift. This was okayed by tele-physician office clin asst.
[2021-05-10] VITALS (13 sets, daily range): BP systolic 94–135; BP diastolic 50–85
[2021-05-10] MEDS: dexmedetomidine/D5W 100mL 100 ML IV SCH (01:03)
[2021-05-10] MEDS: amiodarone/D5 360MG/200ML BAG 200 ML IV SCH (02:29)
[2021-05-10 02:33] LABS: BASOPHILS # (AUTO) 0.1 X10'3 (0-0.2); BASOPHILS % (AUTO) 0.8 % (0-1); EOSINOPHILS # (AUTO) 0.2 X10'3 (0-0.9); EOSINOPHILS % (AUTO) 1.7 % (0-6); HEMATOCRIT 24.6 % (35.0-45.0); HEMOGLOBIN 8.2 g/dl (12.0-16.0); LYMPHOCYTES # (AUTO) 1.1 X10'3 (1.1-4.8); LYMPHOCYTES % (AUTO) 12.1 % (21-51); MEAN CORPUSCULAR HEMOGLOBIN 29.4 PG (27.0-31.0); MEAN CORPUSCULAR HGB CONC 33.4 g/dL (33.0-36.5); MEAN CORPUSCULAR VOLUME 88.1 FL (78-98); MEAN PLATELET VOLUME 7.7 FL (7.4-10.4); MONOCYTES # (AUTO) 1.2 X10'3 (0-0.9); MONOCYTES % (AUTO) 13.7 % (2-12); NEUTROPHILS # (AUTO) 6.3 X10'3 (1.8-7.7); NEUTROPHILS % (AUTO) 71.7 % (42-75); PLATELET COUNT 200 X10'3 (140-440); RED CELL DISTRIBUTION WIDTH 19.7 % (11.5-14.5); WHITE BLOOD COUNT 8.7 X10'3 (4.5-11.0)
[2021-05-10 02:39] LABS: ALBUMIN 2.4 G/DL (3.4-5.0); ANION GAP 11 (8-16); BLOOD UREA NITROGEN 22 MG/DL (7-18); BUN/CREATININE RATIO 14.9 (6.6-38.0); CALCIUM 8.3 MG/DL (8.5-10.1); CHLORIDE 107 MMOL/L (99-107); CREATININE 1.48 MG/DL (0.40-0.90); GLUCOSE 129 MG/DL (70-104); MAGNESIUM 2.5 MG/DL (1.5-2.4); POTASSIUM 3.4 MMOL/L (3.5-5.1); SODIUM 143 MMOL/L (135-145); TOTAL CARBON DIOXIDE 24.6 MMOL/L (24-32); eGFR 36 ML/MIN
[2021-05-10] MEDS: ipratropium/albuterol 3ml nebule NEB SCH ×4 (02:53→20:12)
[2021-05-10 05:33] LABS: ANISOCYTOSIS 2+; ELLIPTOCYTES FEW; PLATELET ESTIMATE NORMAL; POLYCHROMASIA FEW; TARGET CELLS FEW
--- NOTE | 2021-05-10 06:10 | NUR ---
Patient in room ICU 2039. I have received report from Erlinda MEJIA and had the opportunity to ask questions and assume patient care.
[2021-05-10] MEDS: diltiazem-NS 100mg/100ml 100 ML IV SCH (07:05)
--- NOTE | 2021-05-10 07:14 | NUR ---
precedex turned down to 0.5 mcg/min
[2021-05-10] MEDS ORDERED: QUEtiapine 25mg tablet PO SCH (08:00)
[2021-05-10] MEDS: mineral oil/petrolatum, white cream 113gm jar TP SCH ×2 (08:00→19:19)
[2021-05-10] MEDS: piperacillin/tazo 3.375gm/50ml 50 ML IV SCH ×3 (08:55→23:26)
[2021-05-10] MEDS: multivitamins, therapeutics tablet PO SCH (08:56)
[2021-05-10] MEDS: thiamine 100mg tablet PO SCH (08:56)
[2021-05-10] MEDS: lactobacillus rhamnosus 10,000 MMU CELLS/CAPSULE PO SCH ×2 (08:56→19:18)
[2021-05-10] MEDS: folic acid 1mg tablet PO SCH (08:56)
[2021-05-10] MEDS: cholecalciferol (vitamin D3) 1,000 unit (25mcg) tablet NG SCH (08:56)
[2021-05-10] MEDS: POTASSIUM BICARB 20meq eff tab 20 MEQ TABLET.EFF PO PRN ×3 (08:56→23:20)
[2021-05-10] MEDS ORDERED: quetiapine 100mg tablet PO ONE (09:00)
--- NOTE | 2021-05-10 09:00 | NUR ---
Dr. Merrill examined most recent x-ray for corpak placement and okayed it for tube feeding
--- NOTE | 2021-05-10 09:15 | NUR ---
Precedex drip turned off. Will continue to monitor Pt's agitation.
[2021-05-10] MEDS: amiodarone 200mg tablet PO SCH (10:31)
--- NOTE | 2021-05-10 11:30 | NUR ---
Pt pulled out corpak. Will attempt to place another corpak.
--- NOTE | 2021-05-10 14:30 | NUR ---
Spoke with Dr. Merrill concerning Pt removing corpak. Dr. Merrill said it is okay to leave corpak out since Pt is eating 50% of meals now.
[2021-05-10] MEDS: apixaban 5mg tablet PO SCH ×2 (15:14→19:19)
[2021-05-10 15:27] LABS: HEMATOCRIT 27.2 % (35.0-45.0); HEMOGLOBIN 8.9 g/dl (12.0-16.0); MEAN CORPUSCULAR HEMOGLOBIN 29.1 PG (27.0-31.0); MEAN CORPUSCULAR HGB CONC 32.8 g/dL (33.0-36.5); MEAN CORPUSCULAR VOLUME 88.6 FL (78-98); MEAN PLATELET VOLUME 7.5 FL (7.4-10.4); PLATELET COUNT 217 X10'3 (140-440); RED BLOOD COUNT 3.07 X10'6 (4.20-5.60); RED CELL DISTRIBUTION WIDTH 20.3 % (11.5-14.5); WHITE BLOOD COUNT 10.3 X10'3 (4.5-11.0)
[2021-05-10] MEDS: HYDROmorphone inj. 0.5 MG/0.5 ML DISP.SYRIN IV PRN ×2 (17:06→23:26)
--- NOTE | 2021-05-10 18:30 | NUR ---
Problems reprioritized. Patient report given, questions answered & plan of care reviewed with Mars MEJIA.
--- NOTE | 2021-05-10 18:48 | NUR ---
Patient in room PCU 3023. I have received report from shaista harrell and had the opportunity to ask questions and assume patient care.
--- NOTE | 2021-05-10 19:59 | NUR ---
paged dr snyder to get wrist restraints on pt
--- NOTE | 2021-05-10 19:59 | NUR ---
PAGER ID: [phone] MESSAGE: Paula Rodriguez [phone] Maybe I please get wrist restraints on pt, she keeps trying to pull at her IJ line. Mars U [id number]
[2021-05-10] MEDS: quetiapine 100mg tablet PO SCH (20:10)
--- NOTE | 2021-05-11 00:17 | NUR ---
received order for restraints per dr snyder
--- NOTE | 2021-05-11 00:52 | NUR ---
in report was told that pt pulled out their core pack the previous night by Jules from day shift. He mentioned to leave it out per on site property manager and that she will be reassessed in the am
[2021-05-11 02:00] VITALS: BP 133/79
[2021-05-11] MEDS: ipratropium/albuterol 3ml nebule NEB SCH ×4 (03:00→20:31)
[2021-05-11 04:21] LABS: BASOPHILS % (AUTO) 0.3 % (0-1); EOSINOPHILS # (AUTO) 0.2 X10'3 (0-0.9); EOSINOPHILS % (AUTO) 2.5 % (0-6); HEMATOCRIT 26.8 % (35.0-45.0); HEMOGLOBIN 8.9 g/dl (12.0-16.0); LYMPHOCYTES # (AUTO) 1.1 X10'3 (1.1-4.8); LYMPHOCYTES % (AUTO) 12.8 % (21-51); MEAN CORPUSCULAR HEMOGLOBIN 29.4 PG (27.0-31.0); MEAN CORPUSCULAR HGB CONC 33.2 g/dL (33.0-36.5); MEAN CORPUSCULAR VOLUME 88.5 FL (78-98); MEAN PLATELET VOLUME 7.3 FL (7.4-10.4); MONOCYTES % (AUTO) 12.7 % (2-12); NEUTROPHILS # (AUTO) 5.9 X10'3 (1.8-7.7); NEUTROPHILS % (AUTO) 71.7 % (42-75); PLATELET COUNT 197 X10'3 (140-440); RED BLOOD COUNT 3.03 X10'6 (4.20-5.60); RED CELL DISTRIBUTION WIDTH 20.1 % (11.5-14.5); WHITE BLOOD COUNT 8.2 X10'3 (4.5-11.0)
[2021-05-11 04:25] LABS: ALBUMIN 2.4 G/DL (3.4-5.0); ANION GAP 17 (8-16); BLOOD UREA NITROGEN 20 MG/DL (7-18); CALCIUM 8.1 MG/DL (8.5-10.1); CHLORIDE 104 MMOL/L (99-107); CREATININE 1.25 MG/DL (0.40-0.90); GLUCOSE 90 MG/DL (70-104); MAGNESIUM 2.1 MG/DL (1.5-2.4); POTASSIUM 3.2 MMOL/L (3.5-5.1); SODIUM 145 MMOL/L (135-145); TOTAL CARBON DIOXIDE 24.5 MMOL/L (24-32); eGFR 44 ML/MIN
[2021-05-11] MEDS: POTASSIUM BICARB 20meq eff tab 20 MEQ TABLET.EFF PO PRN ×3 (04:49→21:44)
[2021-05-11 06:00] VITALS: BP 126/78
--- NOTE | 2021-05-11 06:25 | NUR ---
Problems reprioritized. Patient report given, questions answered & plan of care reviewed with Evette MEJIA.
--- NOTE | 2021-05-11 06:30 | NUR ---
Patient in room PCU 3023. I have received report from ROBERTO Crews and had the opportunity to ask questions and assume patient care.
[2021-05-11] MEDS: mineral oil/petrolatum, white cream 113gm jar TP SCH ×2 (08:00→20:00)
[2021-05-11] MEDS ORDERED: QUEtiapine 25mg tablet PO SCH (08:00)
[2021-05-11] MEDS: lactobacillus rhamnosus 10,000 MMU CELLS/CAPSULE PO SCH ×2 (08:08→21:44)
[2021-05-11] MEDS: amiodarone 200mg tablet PO SCH (08:09)
[2021-05-11] MEDS: cholecalciferol (vitamin D3) 1,000 unit (25mcg) tablet NG SCH (08:09)
[2021-05-11] MEDS: folic acid 1mg tablet PO SCH (08:09)
[2021-05-11] MEDS: apixaban 5mg tablet PO SCH (08:09)
[2021-05-11] MEDS: HYDROmorphone inj. 0.5 MG/0.5 ML DISP.SYRIN IV PRN ×2 (08:10→12:00)
[2021-05-11] MEDS: piperacillin/tazo 3.375gm/50ml 50 ML IV SCH ×3 (08:16→23:35)
[2021-05-11] MEDS: quetiapine 100mg tablet PO SCH ×2 (11:59→21:45)
[2021-05-11] MEDS: thiamine 100mg tablet PO SCH (11:59)
[2021-05-11] MEDS: multivitamins, therapeutics tablet PO SCH (11:59)
--- NOTE | 2021-05-11 13:48 | NUR ---
pt. refused 1400 svn
[2021-05-11 15:32] LABS: HEMATOCRIT 25.4 % (35.0-45.0); HEMOGLOBIN 8.3 g/dl (12.0-16.0); MEAN CORPUSCULAR HEMOGLOBIN 29.6 PG (27.0-31.0); MEAN CORPUSCULAR HGB CONC 32.9 g/dL (33.0-36.5); MEAN PLATELET VOLUME 7.3 FL (7.4-10.4); PLATELET COUNT 190 X10'3 (140-440); RED BLOOD COUNT 2.82 X10'6 (4.20-5.60); RED CELL DISTRIBUTION WIDTH 20.9 % (11.5-14.5); WHITE BLOOD COUNT 7.7 X10'3 (4.5-11.0)
[2021-05-11 18:00] VITALS: BP 116/83
--- NOTE | 2021-05-11 18:19 | NUR ---
Problems reprioritized. Patient report given, questions answered & plan of care reviewed with ROBERTO Crews.
--- NOTE | 2021-05-11 18:32 | NUR ---
Patient in room PCU 3023. I have received report from Evette Thapa and had the opportunity to ask questions and assume patient care.
[2021-05-11] MEDS: furosemide 20 MG/2 ML vial IV SCH (21:44)
[2021-05-11 22:00] VITALS: BP 125/88
[2021-05-12 02:00] VITALS: BP 111/72
[2021-05-12] MEDS: ipratropium/albuterol 3ml nebule NEB SCH ×4 (03:00→20:11)
[2021-05-12] MEDS: HYDROmorphone inj. 0.5 MG/0.5 ML DISP.SYRIN IV PRN ×3 (04:26→23:08)
--- NOTE | 2021-05-12 05:06 | NUR ---
called to reconfirm that lab received pt's lab draws because they were not popping up. network operations center technician confirmed that the draws are there and are being processed
[2021-05-12 05:16] LABS: ALBUMIN 2.2 G/DL (3.4-5.0); ANION GAP 10 (8-16); BLOOD UREA NITROGEN 18 MG/DL (7-18); BUN/CREATININE RATIO 16.4 (6.6-38.0); CALCIUM 7.8 MG/DL (8.5-10.1); CHLORIDE 107 MMOL/L (99-107); GLUCOSE 78 MG/DL (70-104); MAGNESIUM 1.8 MG/DL (1.5-2.4); POTASSIUM 3.3 MMOL/L (3.5-5.1); SODIUM 144 MMOL/L (135-145); TOTAL CARBON DIOXIDE 26.9 MMOL/L (24-32); eGFR 50 ML/MIN
[2021-05-12 05:28] LABS: BASOPHILS % (AUTO) 0.6 % (0-1); EOSINOPHILS # (AUTO) 0.3 X10'3 (0-0.9); EOSINOPHILS % (AUTO) 3.7 % (0-6); HEMOGLOBIN 8.4 g/dl (12.0-16.0); LYMPHOCYTES # (AUTO) 0.8 X10'3 (1.1-4.8); LYMPHOCYTES % (AUTO) 11.1 % (21-51); MEAN CORPUSCULAR HEMOGLOBIN 29.2 PG (27.0-31.0); MEAN CORPUSCULAR HGB CONC 32.3 g/dL (33.0-36.5); MEAN CORPUSCULAR VOLUME 90.2 FL (78-98); MEAN PLATELET VOLUME 7.6 FL (7.4-10.4); MONOCYTES # (AUTO) 0.8 X10'3 (0-0.9); MONOCYTES % (AUTO) 10.9 % (2-12); NEUTROPHILS # (AUTO) 5.5 X10'3 (1.8-7.7); NEUTROPHILS % (AUTO) 73.7 % (42-75); PLATELET COUNT 190 X10'3 (140-440); RED BLOOD COUNT 2.88 X10'6 (4.20-5.60); RED CELL DISTRIBUTION WIDTH 21.1 % (11.5-14.5); WHITE BLOOD COUNT 7.5 X10'3 (4.5-11.0)
[2021-05-12 06:00] VITALS: BP 104/71
--- NOTE | 2021-05-12 06:05 | NUR ---
Patient in room PCU 3023. I have received report from ROBERTO Crews and had the opportunity to ask questions and assume patient care.
--- NOTE | 2021-05-12 06:09 | NUR ---
Problems reprioritized. Patient report given, questions answered & plan of care reviewed with Evette MEJIA.
[2021-05-12 07:23] LABS: ANISOCYTOSIS 3+; PLATELET ESTIMATE NORMAL
[2021-05-12 07:24] LABS: POIKILOCYTOSIS FEW; POLYCHROMASIA FEW
[2021-05-12] MEDS: mineral oil/petrolatum, white cream 113gm jar TP SCH ×2 (08:00→20:00)
[2021-05-12] MEDS: furosemide 20 MG/2 ML vial IV SCH ×2 (08:46→19:38)
[2021-05-12] MEDS: piperacillin/tazo 3.375gm/50ml 50 ML IV SCH ×3 (08:46→23:48)
[2021-05-12] MEDS: folic acid 1mg tablet PO SCH (08:47)
[2021-05-12] MEDS: cholecalciferol (vitamin D3) 1,000 unit (25mcg) tablet NG SCH (08:47)
[2021-05-12] MEDS: lactobacillus rhamnosus 10,000 MMU CELLS/CAPSULE PO SCH ×2 (08:48→19:38)
[2021-05-12] MEDS: amiodarone 200mg tablet PO SCH (08:48)
[2021-05-12] MEDS: thiamine 100mg tablet PO SCH (08:48)
[2021-05-12] MEDS: multivitamins, therapeutics tablet PO SCH (08:48)
[2021-05-12] MEDS: quetiapine 100mg tablet PO SCH ×2 (08:48→19:38)
[2021-05-12] MEDS: POTASSIUM BICARB 20meq eff tab 20 MEQ TABLET.EFF PO PRN ×3 (09:01→19:39)
--- NOTE | 2021-05-12 10:53 | NUR ---
Reassessment: Per superintendent division pt pulled out Corpak 05/10 and okayed to leave it out. Pt in restraints since 05/11, currently documented as A/O x 2 and confused. Recommend replacing Corpak and resuming TF now that pt in restraints in view of ALOC and pt consistently with poor PO intake, currently averaging 25% PO intake on pureed foods with thin liquids per ST recs while documented to be receiving minimum assistance with meals. Pt consistently unable to meet estimated nutrient needs with PO diet alone since admit. LBM 05/11 per I&O. Will continue to follow closely. Recommendations: 1) Continue pureed food with thin liquids per ST recs; encourage PO intake and assist with meals in view of ALOC 2) EN to assist with meeting estimated nutrient needs with MD approval in view of prolonged insufficient PO intake: continuous TF using Jevity 1.2 with 65 mL/hr goal; to provide 1560 mL volume, 1872 kcal, 1264 mL water, and 87 g protein. 3) IF TF, additional 100 mL water flush Q4H 4) IF TF PALB q /; daily wts 5) Bowel care per rx Addendum: 05/12/21 at [address] Amended: Links added.
[2021-05-12 11:00] VITALS: BP 126/73
[2021-05-12 15:00] VITALS: BP 110/76
[2021-05-12 18:00] VITALS: BP 137/82
--- NOTE | 2021-05-12 18:30 | NUR ---
Problems reprioritized. Patient report given, questions answered & plan of care reviewed with ROBERTO Coffey.
[2021-05-12 22:00] VITALS: BP 108/71
[2021-05-13 02:00] VITALS: BP 113/74
[2021-05-13] MEDS: ipratropium/albuterol 3ml nebule NEB SCH ×4 (02:15→20:02)
--- NOTE | 2021-05-13 06:34 | NUR ---
Patient in room PCU 3023. I have received report from Erlinda MEJIA and had the opportunity to ask questions and assume patient care.
[2021-05-13 07:00] VITALS: BP 111/74
--- NOTE | 2021-05-13 07:00 | NUR ---
Patient in room PCU 3023. I have received report from Erlinda Thapa and had the opportunity to ask questions and assume patient care.
[2021-05-13 07:41] LABS: BASOPHILS % (AUTO) 0.5 % (0-1); EOSINOPHILS # (AUTO) 0.3 X10'3 (0-0.9); EOSINOPHILS % (AUTO) 3.4 % (0-6); HEMATOCRIT 28.6 % (35.0-45.0); HEMOGLOBIN 9.4 g/dl (12.0-16.0); LYMPHOCYTES # (AUTO) 0.9 X10'3 (1.1-4.8); LYMPHOCYTES % (AUTO) 11.1 % (21-51); MEAN CORPUSCULAR HEMOGLOBIN 29.6 PG (27.0-31.0); MEAN CORPUSCULAR HGB CONC 32.8 g/dL (33.0-36.5); MEAN CORPUSCULAR VOLUME 90.2 FL (78-98); MEAN PLATELET VOLUME 7.3 FL (7.4-10.4); MONOCYTES # (AUTO) 0.9 X10'3 (0-0.9); MONOCYTES % (AUTO) 10.7 % (2-12); NEUTROPHILS # (AUTO) 6.2 X10'3 (1.8-7.7); NEUTROPHILS % (AUTO) 74.3 % (42-75); PLATELET COUNT 197 X10'3 (140-440); RED BLOOD COUNT 3.17 X10'6 (4.20-5.60); RED CELL DISTRIBUTION WIDTH 21.3 % (11.5-14.5); WHITE BLOOD COUNT 8.3 X10'3 (4.5-11.0)
[2021-05-13] MEDS: furosemide 20 MG/2 ML vial IV SCH ×2 (07:41→19:48)
[2021-05-13] MEDS: piperacillin/tazo 3.375gm/50ml 50 ML IV SCH ×3 (07:41→23:28)
[2021-05-13] MEDS: multivitamins, therapeutics tablet PO SCH (07:41)
[2021-05-13] MEDS: lactobacillus rhamnosus 10,000 MMU CELLS/CAPSULE PO SCH ×2 (07:42→19:48)
[2021-05-13] MEDS: quetiapine 100mg tablet PO SCH ×2 (07:42→19:49)
[2021-05-13] MEDS: thiamine 100mg tablet PO SCH (07:42)
[2021-05-13] MEDS: folic acid 1mg tablet PO SCH (07:42)
[2021-05-13] MEDS: amiodarone 200mg tablet PO SCH (07:42)
[2021-05-13] MEDS: spironolactone 50 MG tablet PO SCH (07:42)
[2021-05-13] MEDS: cholecalciferol (vitamin D3) 1,000 unit (25mcg) tablet NG SCH (07:42)
[2021-05-13] MEDS: HYDROmorphone inj. 0.5 MG/0.5 ML DISP.SYRIN IV PRN ×3 (07:43→18:47)
[2021-05-13 07:49] LABS: ALBUMIN 2.2 G/DL (3.4-5.0); ANION GAP 9 (8-16); BLOOD UREA NITROGEN 14 MG/DL (7-18); BUN/CREATININE RATIO 13.6 (6.6-38.0); CALCIUM 7.7 MG/DL (8.5-10.1); CHLORIDE 107 MMOL/L (99-107); CREATININE 1.03 MG/DL (0.40-0.90); GLUCOSE 97 MG/DL (70-104); POTASSIUM 3.2 MMOL/L (3.5-5.1); SODIUM 144 MMOL/L (135-145); TOTAL CARBON DIOXIDE 27.9 MMOL/L (24-32); eGFR 54 ML/MIN
[2021-05-13] MEDS: mineral oil/petrolatum, white cream 113gm jar TP SCH ×2 (08:00→19:49)
[2021-05-13 09:01] LABS: ANISOCYTOSIS 3+; ELLIPTOCYTES FEW; PLATELET ESTIMATE NORMAL; POLYCHROMASIA 1+; SCHISTOCYTES FEW; TEAR DROP CELLS 1+
--- NOTE | 2021-05-13 10:07 | NUR ---
Trial restraint release, sitter in room.
[2021-05-13 11:00] VITALS: BP 107/70
[2021-05-13] MEDS: POTASSIUM BICARB 20meq eff tab 20 MEQ TABLET.EFF PO PRN ×2 (11:46→17:43)
[2021-05-13 18:00] VITALS: BP 109/67
--- NOTE | 2021-05-13 18:11 | NUR ---
Problems reprioritized. Patient report given, questions answered & plan of care reviewed with Erlinda MEJIA.
--- NOTE | 2021-05-13 18:11 | NUR ---
[place] documentation: I have reviewed and agree with all interventions, assessments performed and documented by Omari MEJIA.
--- NOTE | 2021-05-13 18:12 | NUR ---
[place] Medication Administration: For this medication-pass time frame, all medication were reviewed, dispensed, administered and documented per hospital policy by Omari MEJIA.
[2021-05-13] MEDS: docusate sod 100mg capsule PO PRN (20:20)
[2021-05-13 22:00] VITALS: BP 126/73
[2021-05-14] VITALS (8 sets, daily range): BP systolic 100–124; BP diastolic 63–80
[2021-05-14] MEDS: HYDROmorphone inj. 0.5 MG/0.5 ML DISP.SYRIN IV PRN ×4 (00:42→20:12)
[2021-05-14] MEDS: ipratropium/albuterol 3ml nebule NEB SCH ×4 (02:22→20:08)
--- NOTE | 2021-05-14 07:03 | NUR ---
Patient in room PCU 3023. I have received report from Erlinda MEJIA and had the opportunity to ask questions and assume patient care.
[2021-05-14] MEDS: thiamine 100mg tablet PO SCH (07:59)
[2021-05-14] MEDS: spironolactone 50 MG tablet PO SCH (07:59)
[2021-05-14] MEDS: furosemide 20 MG/2 ML vial IV SCH ×2 (07:59→20:00)
[2021-05-14] MEDS: mineral oil/petrolatum, white cream 113gm jar TP SCH ×2 (08:00→20:03)
[2021-05-14] MEDS: cholecalciferol (vitamin D3) 1,000 unit (25mcg) tablet NG SCH (08:00)
[2021-05-14] MEDS: multivitamins, therapeutics tablet PO SCH (08:00)
[2021-05-14] MEDS: quetiapine 100mg tablet PO SCH ×2 (08:00→20:01)
[2021-05-14] MEDS: piperacillin/tazo 3.375gm/50ml 50 ML IV SCH ×3 (08:00→23:50)
[2021-05-14] MEDS: amiodarone 200mg tablet PO SCH (08:00)
[2021-05-14] MEDS: folic acid 1mg tablet PO SCH (08:00)
[2021-05-14] MEDS: lactobacillus rhamnosus 10,000 MMU CELLS/CAPSULE PO SCH ×2 (08:00→20:00)
--- NOTE | 2021-05-14 18:29 | NUR ---
Problems reprioritized. Patient report given, questions answered & plan of care reviewed with Erlinda MEJIA.
[2021-05-15 02:00] VITALS: BP 107/62
[2021-05-15] MEDS: ipratropium/albuterol 3ml nebule NEB SCH ×4 (02:21→21:10)
[2021-05-15] MEDS: HYDROmorphone inj. 0.5 MG/0.5 ML DISP.SYRIN IV PRN ×2 (04:36→17:04)
[2021-05-15 06:00] VITALS: BP 113/69
--- NOTE | 2021-05-15 06:30 | NUR ---
Patient in room PCU 3023. I have received report from Erlinda Thapa and had the opportunity to ask questions and assume patient care.
--- NOTE | 2021-05-15 06:38 | NUR ---
Patient in room PCU 3023. I have received report from Erlinda MEJIA and had the opportunity to ask questions and assume patient care.
[2021-05-15 07:02] LABS: BASOPHILS % (AUTO) 0.5 % (0-1); EOSINOPHILS # (AUTO) 0.3 X10'3 (0-0.9); EOSINOPHILS % (AUTO) 3.7 % (0-6); HEMATOCRIT 31.5 % (35.0-45.0); HEMOGLOBIN 10.1 g/dl (12.0-16.0); LYMPHOCYTES # (AUTO) 0.6 X10'3 (1.1-4.8); MEAN CORPUSCULAR HEMOGLOBIN 29.5 PG (27.0-31.0); MEAN CORPUSCULAR HGB CONC 31.9 g/dL (33.0-36.5); MEAN CORPUSCULAR VOLUME 92.4 FL (78-98); MONOCYTES # (AUTO) 0.9 X10'3 (0-0.9); MONOCYTES % (AUTO) 12.1 % (2-12); NEUTROPHILS # (AUTO) 5.4 X10'3 (1.8-7.7); NEUTROPHILS % (AUTO) 75.7 % (42-75); PLATELET COUNT 168 X10'3 (140-440); RED BLOOD COUNT 3.41 X10'6 (4.20-5.60); WHITE BLOOD COUNT 7.1 X10'3 (4.5-11.0)
[2021-05-15 07:30] LABS: ALBUMIN 2.3 G/DL (3.4-5.0); ANION GAP 14 (8-16); BLOOD UREA NITROGEN 13 MG/DL (7-18); BUN/CREATININE RATIO 11.9 (6.6-38.0); CALCIUM 7.9 MG/DL (8.5-10.1); CHLORIDE 106 MMOL/L (99-107); CREATININE 1.09 MG/DL (0.40-0.90); GLUCOSE 77 MG/DL (70-104); POTASSIUM 3.6 MMOL/L (3.5-5.1); SODIUM 146 MMOL/L (135-145); TOTAL CARBON DIOXIDE 26.2 MMOL/L (24-32); eGFR 51 ML/MIN
[2021-05-15] MEDS: furosemide 20 MG/2 ML vial IV SCH (07:58)
[2021-05-15] MEDS: thiamine 100mg tablet PO SCH (07:59)
[2021-05-15] MEDS: spironolactone 50 MG tablet PO SCH (07:59)
[2021-05-15] MEDS: multivitamins, therapeutics tablet PO SCH (07:59)
[2021-05-15] MEDS: amiodarone 200mg tablet PO SCH (07:59)
[2021-05-15] MEDS: folic acid 1mg tablet PO SCH (07:59)
[2021-05-15] MEDS: lactobacillus rhamnosus 10,000 MMU CELLS/CAPSULE PO SCH ×2 (07:59→20:52)
[2021-05-15] MEDS: quetiapine 100mg tablet PO SCH ×2 (07:59→20:53)
[2021-05-15] MEDS: piperacillin/tazo 3.375gm/50ml 50 ML IV SCH (07:59)
[2021-05-15] MEDS: cholecalciferol (vitamin D3) 1,000 unit (25mcg) tablet NG SCH (08:00)
[2021-05-15 08:09] LABS: PLATELET ESTIMATE NORMAL
[2021-05-15 08:10] LABS: ANISOCYTOSIS 3+; ELLIPTOCYTES FEW; LARGE PLATELETS FEW; POLYCHROMASIA FEW
[2021-05-15 08:11] LABS: SCHISTOCYTES FEW
[2021-05-15] MEDS: mineral oil/petrolatum, white cream 113gm jar TP SCH ×2 (08:14→20:00)
--- NOTE | 2021-05-15 09:05 | NUR ---
Patient has been without sitter for 24 hours, no behavioral problems, has been too weak to get out of bed, working with PT towards goal of ambulation. Tab alarm on bed, orders to transfer to step-down medical floor.
[2021-05-15] MEDS: LORazepam 1 MG tablet PO PRN (09:54)
[2021-05-15 11:00] VITALS: BP 100/61
--- NOTE | 2021-05-15 13:49 | NUR ---
Reassessment: Pt s/p paracentesis 05/14 with 2.5L fluid removed per report. Patient's PO intake appears to be slowly improving with average 25% PO intake up to average 50% PO intake since 05/14. Pt remains A/O x 1 and confused, documented to be receiving minimum to max assistance with meals. Nutrition intervention recommendations below have been d/w dietary. LBM 05/14 per I&O. Will continue to follow closely. Recommendations: 1) Continue pureed food with thin liquids per ST recs; encourage PO intake and assist with meals in view of ALOC 2) Yogurt WB, shake BIDLD 3) EN to assist with meeting estimated nutrient needs with MD approval in view of prolonged insufficient PO intake: continuous TF using Jevity 1.2 with 65 mL/hr goal; to provide 1560 mL volume, 1872 kcal, 1264 mL water, and 87 g protein. 4) IF TF, additional 100 mL water flush Q4H 5) IF TF PALB q /; daily wts 6) Bowel care per rx Addendum: 05/15/21 at [address] Amended: Links added.
[2021-05-15 15:00] VITALS: BP 125/60
[2021-05-15 18:00] VITALS: BP 123/73
--- NOTE | 2021-05-15 18:15 | NUR ---
Patient in room PCU 3023. I have received report from Omari MEJIA and had the opportunity to ask questions and assume patient care.
--- NOTE | 2021-05-15 18:19 | NUR ---
Problems reprioritized. Patient report given, questions answered & plan of care reviewed with Beatris Thapa.
--- NOTE | 2021-05-15 19:46 | NUR ---
Dr Ahn Page Sent promotional table spacer PAGER ID: [phone] MESSAGE: [phone] Paula Rodriguez Pt pulled out iv x2, pulling on ghosh, yelling, c/o pain, incoherent at times. Would you like to change iv meds to po? restraints? Thank you, Beatris MEJIA [id number]
--- NOTE | 2021-05-15 20:08 | NUR ---
Dr Jimy Mason ordered Lasix PO 20 mg BID to replace same dose iv because patient has no good iv at this time due to her pulling them out, added Kent 5 mg 1 tab Q6H PRN moderate pain, Kent 10 mg 2 tabs Q6H PRN mod-severe pain, and melatonin 6 mg po QHS.
[2021-05-15] MEDS ORDERED: HYDROcodone/acetaminophen 5mg/325mg tablet PO PRN (20:20)
[2021-05-15] MEDS ORDERED: HYDROcodone/acetaminophen 10/325mg tab PO PRN (20:25)
[2021-05-15] MEDS: Melatonin 3mg tablet PO SCH (20:53)
[2021-05-15] MEDS: furosemide 20MG tablet PO SCH (20:53)
[2021-05-15 22:00] VITALS: BP 124/81
[2021-05-16] VITALS (7 sets, daily range): BP systolic 104–149; BP diastolic 68–100
--- NOTE | 2021-05-16 00:42 | NUR ---
Eucerin cream unavailable in patient's room and omnicell. Pharmacy message sent to get replacement. Lotion applied to patient's lower extremities.
--- NOTE | 2021-05-16 02:20 | NUR ---
No daily weight obtained at HS, patient combative, uncooperative. Bed scale did not function properly. Retimed for am 05/16.
[2021-05-16] MEDS: ipratropium/albuterol 3ml nebule NEB SCH ×4 (03:22→20:46)
[2021-05-16] MEDS: HYDROmorphone inj. 0.5 MG/0.5 ML DISP.SYRIN IV PRN (05:33)
--- NOTE | 2021-05-16 06:15 | NUR ---
Problems reprioritized. Patient report given, questions answered & plan of care reviewed with Denise MEJIA.
--- NOTE | 2021-05-16 06:31 | NUR ---
Patient in room PCU 3023. I have received report from ROBERTO Spear and had the opportunity to ask questions and assume patient care.
[2021-05-16 06:44] LABS: BASOPHILS % (AUTO) 0.5 % (0-1); EOSINOPHILS # (AUTO) 0.2 X10'3 (0-0.9); EOSINOPHILS % (AUTO) 2.1 % (0-6); HEMATOCRIT 30.4 % (35.0-45.0); LYMPHOCYTES # (AUTO) 0.7 X10'3 (1.1-4.8); LYMPHOCYTES % (AUTO) 8.3 % (21-51); MEAN CORPUSCULAR HEMOGLOBIN 29.7 PG (27.0-31.0); MEAN CORPUSCULAR HGB CONC 32.9 g/dL (33.0-36.5); MEAN CORPUSCULAR VOLUME 90.3 FL (78-98); MONOCYTES # (AUTO) 1.1 X10'3 (0-0.9); MONOCYTES % (AUTO) 13.9 % (2-12); NEUTROPHILS % (AUTO) 75.2 % (42-75); PLATELET COUNT 174 X10'3 (140-440); RED BLOOD COUNT 3.37 X10'6 (4.20-5.60); RED CELL DISTRIBUTION WIDTH 22.5 % (11.5-14.5)
[2021-05-16 07:20] LABS: ALBUMIN 2.5 G/DL (3.4-5.0); ANION GAP 12 (8-16); BLOOD UREA NITROGEN 15 MG/DL (7-18); CALCIUM 8.3 MG/DL (8.5-10.1); CHLORIDE 105 MMOL/L (99-107); CREATININE 1.07 MG/DL (0.40-0.90); GLUCOSE 91 MG/DL (70-104); POTASSIUM 3.6 MMOL/L (3.5-5.1); SODIUM 143 MMOL/L (135-145); TOTAL CARBON DIOXIDE 26.2 MMOL/L (24-32); eGFR 52 ML/MIN
[2021-05-16] MEDS: cholecalciferol (vitamin D3) 1,000 unit (25mcg) tablet NG SCH (08:36)
[2021-05-16] MEDS: furosemide 20MG tablet PO SCH ×2 (08:38→21:34)
[2021-05-16] MEDS: folic acid 1mg tablet PO SCH (08:38)
[2021-05-16] MEDS: lactobacillus rhamnosus 10,000 MMU CELLS/CAPSULE PO SCH ×2 (08:38→20:00)
[2021-05-16] MEDS: mineral oil/petrolatum, white cream 113gm jar TP SCH ×2 (08:39→21:36)
[2021-05-16] MEDS: quetiapine 100mg tablet PO SCH ×2 (08:39→21:34)
[2021-05-16] MEDS: multivitamins, therapeutics tablet PO SCH (08:39)
[2021-05-16] MEDS: thiamine 100mg tablet PO SCH (08:39)
[2021-05-16] MEDS: spironolactone 50 MG tablet PO SCH (08:39)
[2021-05-16] MEDS: amiodarone 200mg tablet PO SCH (08:41)
[2021-05-16] MEDS: LORazepam 1 MG tablet PO PRN (11:45)
[2021-05-16] MEDS ORDERED: LORazepam 2 mg/ml vial IV PRN (12:30)
--- NOTE | 2021-05-16 15:07 | NUR ---
Medication Administration No working scanners available. 2 RN verification used, 10 rights of medications done.
--- NOTE | 2021-05-16 17:27 | NUR ---
Patient in room PCU 3023. I have received report from Jennifer MEJIA and had the opportunity to ask questions and assume patient care.
--- NOTE | 2021-05-16 17:45 | NUR ---
Patient report given to ROBERTO Frank. Patient in room 359A. Problems reprioritized. Patient report given, questions answered & plan of care reviewed with .
--- NOTE | 2021-05-16 18:13 | NUR ---
Problems reprioritized. Patient report given, questions answered & plan of care reviewed with Estefania MEJIA.
--- NOTE | 2021-05-16 18:57 | NUR ---
Patient in room [facility]GELINE 359. I have received report from Monika MEJIA and had the opportunity to ask questions and assume patient care.
--- NOTE | 2021-05-16 19:02 | NUR ---
Patient in room [facility] 359. I have received report from ROBERTO Frank and had the opportunity to ask questions and assume patient care.
[2021-05-16] MEDS: Melatonin 3mg tablet PO SCH (21:34)
[2021-05-17] MEDS: ipratropium/albuterol 3ml nebule NEB SCH ×2 (03:01→07:49)
--- NOTE | 2021-05-17 06:21 | NUR ---
Problems reprioritized. Patient report given, questions answered & plan of care reviewed with Anahi MEJIA.
--- NOTE | 2021-05-17 06:21 | NUR ---
Problems reprioritized. Patient report given, questions answered & plan of care reviewed with ROBERTO Christian.
[2021-05-17 06:57] LABS: BASOPHILS # (AUTO) 0.1 X10'3 (0-0.2); BASOPHILS % (AUTO) 0.4 % (0-1); EOSINOPHILS % (AUTO) 0.1 % (0-6); HEMATOCRIT 33.1 % (35.0-45.0); HEMOGLOBIN 10.5 g/dl (12.0-16.0); LYMPHOCYTES # (AUTO) 0.9 X10'3 (1.1-4.8); MEAN CORPUSCULAR HEMOGLOBIN 29.2 PG (27.0-31.0); MEAN CORPUSCULAR HGB CONC 31.8 g/dL (33.0-36.5); MEAN CORPUSCULAR VOLUME 91.9 FL (78-98); MEAN PLATELET VOLUME 8.3 FL (7.4-10.4); MONOCYTES % (AUTO) 10.6 % (2-12); NEUTROPHILS # (AUTO) 15.8 X10'3 (1.8-7.7); NEUTROPHILS % (AUTO) 83.9 % (42-75); PLATELET COUNT 183 X10'3 (140-440); RED CELL DISTRIBUTION WIDTH 22.6 % (11.5-14.5); WHITE BLOOD COUNT 18.8 X10'3 (4.5-11.0)
[2021-05-17 07:00] VITALS: BP 108/68
--- NOTE | 2021-05-17 07:08 | NUR ---
Patient in room [facility] 359A. I have received report from LEODAN RN & MARIA ELENA RN and had the opportunity to ask questions and assume patient care.
[2021-05-17 07:35] LABS: ALBUMIN 2.3 G/DL (3.4-5.0); ANION GAP 11 (8-16); BLOOD UREA NITROGEN 19 MG/DL (7-18); CALCIUM 8.3 MG/DL (8.5-10.1); CHLORIDE 108 MMOL/L (99-107); CREATININE 1.19 MG/DL (0.40-0.90); GLUCOSE 82 MG/DL (70-104); POTASSIUM 4.3 MMOL/L (3.5-5.1); SODIUM 144 MMOL/L (135-145); TOTAL CARBON DIOXIDE 25.1 MMOL/L (24-32); eGFR 46 ML/MIN
[2021-05-17 08:06] LABS: ANISOCYTOSIS 3+; PLATELET ESTIMATE NORMAL
--- NOTE | 2021-05-17 08:28 | NUR ---
PATIENT STABLE AND APPROPRIATE FOR DISCHARGE, PATIENT VERY SOMNOLENT, ALL BELONGINGS SENT WITH PATIENT, REPORT CALLED IN TO ROBERTO ALARCON AT [facility], PATIENT SENT WITH TO CATHETER AND IV, PATIENT TAKEN TO [facility] BY ISAIAH AND ACCOMPANIED BY [facility] STAFF Addendum: 05/17/21 at 1932 by Anahi Delaney RN PATIENT'S MEDS THAT WERE STORED IN PHARMACY TO BE MAILED TO [facility]
== END 2021-05-17 08:28 | DRG 130 ==
LOC: ER 19:36 → ED HOLD 23:34 → MED 3N 04-03 00:28 → ICU 2S 04-05 09:33 → PCU 3S 04-08 18:03 → SUR 3N 04-20 11:19 → ICU 2S 04-25 16:10 → PCU 3S 05-10 13:57 → SUR 3N 05-16 17:46
PROVIDERS: ADMIT Family Medicine; ATTEND Internal Medicine Critical Care Medicine
PROC: B32T1ZZ Computerized Tomography (CT Scan) of Left Pulmonary Artery using Low Osmolar Contrast (ICD-10-PCS; 2021-04-05)
PROC: B32S1ZZ Computerized Tomography (CT Scan) of Right Pulmonary Artery using Low Osmolar Contrast (ICD-10-PCS; 2021-04-05)
PROC: 02HV33Z Insertion of Infusion Device into Superior Vena Cava, Percutaneous Approach (ICD-10-PCS; principal; 2021-04-25)
PROC: 5A1955Z Respiratory Ventilation, Greater than 96 Consecutive Hours (ICD-10-PCS; 2021-04-25)
PROC: 0BH17EZ Insertion of Endotracheal Airway into Trachea, Via Natural or Artificial Opening (ICD-10-PCS; 2021-04-25)
PROC: 4A00X4Z Measurement of Central Nervous Electrical Activity, External Approach (ICD-10-PCS; 2021-05-01)
PROC: 4A00X4Z Measurement of Central Nervous Electrical Activity, External Approach (ICD-10-PCS; 2021-05-02)
PROC: 4A00X4Z Measurement of Central Nervous Electrical Activity, External Approach (ICD-10-PCS; 2021-05-03)
PROC: 30233N1 Transfusion of Nonautologous Red Blood Cells into Peripheral Vein, Percutaneous Approach (ICD-10-PCS; 2021-05-04)
PROC: 30233L1 Transfusion of Nonautologous Fresh Plasma into Peripheral Vein, Percutaneous Approach (ICD-10-PCS; 2021-05-06)
PROC: 30233K1 Transfusion of Nonautologous Frozen Plasma into Peripheral Vein, Percutaneous Approach (ICD-10-PCS; 2021-05-06)
PROC: 0W9G3ZZ Drainage of Peritoneal Cavity, Percutaneous Approach (ICD-10-PCS; 2021-05-14)
DX: J96.01 Acute respiratory failure with hypoxia (principal); R57.9 Shock, unspecified; I33.0 Acute and subacute infective endocarditis; N17.9 Acute kidney failure, unspecified; E87.2 Acidosis; I08.3 Combined rheumatic disorders of mitral, aortic and tricuspid valves; D62 Acute posthemorrhagic anemia; R18.8 Other ascites; I13.0 Hypertensive heart and chronic kidney disease with heart failure and stage 1 through stage 4 chronic kidney disease, or unspecified chronic kidney disease; I50.30 Unspecified diastolic (congestive) heart failure; K74.60 Unspecified cirrhosis of liver; D64.9 Anemia, unspecified; E78.00 Pure hypercholesterolemia, unspecified; E78.5 Hyperlipidemia, unspecified; E87.6 Hypokalemia; F10.20 Alcohol dependence, uncomplicated; F17.210 Nicotine dependence, cigarettes, uncomplicated; F41.9 Anxiety disorder, unspecified; I25.10 Atherosclerotic heart disease of native coronary artery without angina pectoris; I48.0 Paroxysmal atrial fibrillation; Z66 Do not resuscitate; N18.9 Chronic kidney disease, unspecified; K80.20 Calculus of gallbladder without cholecystitis without obstruction; S30.1XXA Contusion of abdominal wall, initial encounter; I73.9 Peripheral vascular disease, unspecified; Z95.5 Presence of coronary angioplasty implant and graft; Z95.1 Presence of aortocoronary bypass graft; I25.2 Old myocardial infarction; Z88.8 Allergy status to other drugs, medicaments and biological substances; Z91.19 Patient's noncompliance with other medical treatment and regimen; Z95.3 Presence of xenogenic heart valve; Z86.73 Personal history of transient ischemic attack (TIA), and cerebral infarction without residual deficits; Z86.718 Personal history of other venous thrombosis and embolism; Z86.711 Personal history of pulmonary embolism; Z82.49 Family history of ischemic heart disease and other diseases of the circulatory system; Z82.41 Family history of sudden cardiac death; Z80.0 Family history of malignant neoplasm of digestive organs; Z79.899 Other long term (current) drug therapy; Z78.1 Physical restraint status; Z79.01 Long term (current) use of anticoagulants
CPT/HCPCS: 36415; 36430; 36600; 49083; 70450; 70551; 71045; 71275; 72192; 74018; 74176; 76700; 76705; 78278; 78707; 80048; 80053; 80074; 80305; 81001; 82140; 82272; 82565; 82570; 82803; 82810; 82948; 83036; 83605; 83690; 83735; 83880; 83935; 84100; 84132; 84133; 84134; 84145; 84156; 84300; 84439; 84443; 84480; 84484; 84560; 85008; 85018; 85025; 85027; 85384; 85610; 85730; 86622; 86638; 86885; 86900; 86901; 86920; 87040; 87070; 87081; 87088; 87207; 92508; 92616; 93005; 93306; 93308; 93922; 93970; 93971; 94002; 94003; 94640; 94660; 94760; 94799; 95720; 95816; 96365; 96375; 97110; 97112; 97116; 97161; 97164; 97530; 97535; 99285; A9560; A9562; C9113; G0378; J0153; J0696; J0780; J1170; J1250; J1644; J1720; J1815; J1940; J2060; J2150; J2250; J2270; J2354; J2405; J2543; J2765; J3010; J3370; J3430; J3475; J3480; J3490; J7030; J7050; J7070; J7120; P9016; P9045; P9047; P9059; Q9956; Q9967